=== PATIENT | female | born 1940 | race Hispanic/Latino ===

== ENCOUNTER 2017-01-08 17:06 | Inpatient (IN) | payer MEDICARE, MEDICAID ==
[~2017-01-08] VITALS: Ht 162.6 cm; Wt 105.0 kg
[~2017-01-08 17:06] MED LIST: ACCOLATE20 MG PO; ACTOS15 MG PO; ADVIL200 MG OR; ALBUTEROL SUL0.083 % IN; ALLEGRA180 MG PO; AMITIZA8 MCG PO; AMLODIPINE BESYL5 MG PO; AMLODIPINE5 MG PO; BAYER LOW81 MG OR; CARVEDILOL25 MG PO; CARVEDILOL3.125 MG PO; CARVEDILOL6.25 MG PO; CITRACAL + D3 MAXIMU PO; CLARITHROMYC500 M2 PO; CLARITIN10 MG OR; CLOBETASOL0.053 EX; CLONAZEP ODT0.5 MG PO; CLONAZEPAM0.5 MG PO; CLOPIDOGREL75 MG PO; COLACE100 MG PO; COUMADIN2.5 MG PO; COUMADIN5 MG PO; DOCUSATE CAL240 MG PO; FLEXERIL PO; FLUOXETINE20 MG PO; FUROSEMIDE40 MG PO; GABAPENTIN300 MG PO; GLIMEPIRIDE1 MG PO; GLIMEPIRIDE2 MG PO; GLIPIZIDE5 MG PO; GLUCOVANCE5 MG/500 M OR; IMDUR30 MG OR; ISOSORB MONO30 MG PO; K-DUR/KLOR-CON20 MEQ PO; KEPPRA500 M2 PO; KLONOPIN0.5 MG PO; LASIX 40 MG TAB40 MG PO; LASIX 40 MG40 MG/TAB PO; LEVEMIR1000 UNITS SC; LEVETIRACETAM500 MG PO; LIPITOR20 MG PO; LIPITOR40 M1 PO; LISINOPRIL20 MG PO; LOPRESSOR25 MG PO; LOPRESSOR50 M1 PO; LORTAB 10-325 M1 TAB PO; LOSARTAN POT50 MG PO; LOSARTAN POTASS50 MG PO; METFORMIN500 MG PO; METOCLOPRAM10 MG PO; METOPROLOL25 M1 OR; METRONIDAZOL500 MG PO; MUCINEX MAXIM1200 MG PO; MUCINEX1200 MG PO; MUCINEX600 MG PO; NEURONTIN100 MG PO; NITRO-DUR0.4 MG/HR TD; NITROSTAT0.4 MG SL; NORVASC2.5 MG PO; NOVOLIN 70/30 SC; OMEPRAZOLE10 MG PO; PANTOPRAZOLE SO40 M1 PO; PLAVIX75 MG PO; POTASSIMIN75 MG PO; PRAVASTATIN10 MG PO; PREVACID30 M3 PO; PRILOSEC20 MG/CAP PO; PRINIVIL5 MG PO; PROTONIX40 M2 PO; PROVENTIL HFA IN; SERTRALINE25 MG PO; SINGULAIR PO; SPIRONOLACT25 MG PO; TAM75CAP OR; TAM75CAP PO; TRAMADOL HCL50 MG PO; TRICOR145 MG OR; TYLENOL # 31 TA1 PO; ULTRAM50 MG PO; VITAMIN B CO PO; VITAMIN C500 MG PO; WARFARIN SODIUM1 MG PO; WARFARIN2.5 MG PO; WARFARIN5 MG PO; WARFARIN7.5 MG PO; ZITHROMAX250 MG PO; ZOFRAN ODT4 MG PO; ZOLOFT25 MG PO; ZOVIRAX200 MG PO; ZPAK PO
--- NOTE | 2017-01-08 17:15 | NUR ---
PT TRANSPORTED TO ROOM 12 VIA W/C.
[2017-01-08 18:11] LABS: HEMATOCRIT 34.7 % (37.0-47.0); HEMOGLOBIN 11.7 g/dl (12.0-16.0); IMMATURE GRANULOCYTES 0.6 % (0.0-1.0); MEAN CELL VOLUME 86.1 fL CALC (80.0-100.0); MEAN CORPUSCULAR HGB CONC 33.7 g/L CALC (32.0-36.0); NEUT# 14.73 thou/uL (2.00-7.15); RED BLOOD COUNT 4.03 mill/uL (4.20-5.60); RED CELL DISTRI WIDTH 12.9 % (11.5-15.5)
[2017-01-08 18:31] LABS: PROTHROMBIN TIME 23.3 SECONDS (9.0-12.5)
[2017-01-08 18:33] LABS: ALBUMIN 4.2 g/dL (3.2-5.0); BILIRUBIN, TOTAL 0.7 mg/dL (0.0-1.4); CREATININE 1.1 mg/dL (0.5-1.0); POTASSIUM 5.2 mmol/l (3.5-5.1); TOTAL PROTEIN 8.4 g/dL (6.3-8.2)
--- NOTE | 2017-01-08 19:35 | NUR ---
PT NOW WITH IV ESTABLISHED, BLOOD DRAWN, SEEN BY EDP.
[2017-01-08] MEDS ORDERED: WARFARIN2.5 MG PO (20:04)
[2017-01-08] MEDS ORDERED: AMITIZA8 MCG PO (20:06)
[2017-01-08] MEDS ORDERED: PANTOPRAZOLE SO40 MG PO (20:08)
[2017-01-08 20:09] LABS: URINE BILIRUBIN - DIPSTICK NEGATIVE (NEGATIVE); URINE BLOOD DIPSTICK NEGATIVE (NEGATIVE); URINE CLARITY CLEAR; URINE COLOR YELLOW; URINE GLUCOSE - DIPSTICK NEGATIVE (NEGATIVE); URINE KETONE NEGATIVE (NEGATIVE); URINE LEUK ESTERASE TRACE (NEGATIVE); URINE NITRITE - DIPSTICK NEGATIVE (Negative); URINE PROTEIN - DIPSTICK NEGATIVE (NEG-TRACE); URINE UROBILINOGEN - DIPSTICK 0.2 E.U./dL (0.2)
[2017-01-08] MEDS ORDERED: MUCINEX600 MG PO (20:10)
[2017-01-08] MEDS ORDERED: METOCLOPRAM10 MG PO (20:13)
[2017-01-08] MEDS ORDERED: CYCLOBENZAPR5 MG PO (20:13)
--- NOTE | 2017-01-08 21:14 | NUR ---
REPORT CALLED TO SILVER ELIAS TAKEN TO FLOOR BY PAYTON.
--- NOTE | 2017-01-08 21:20 | NUR ---
PT FROM ER TO MEDSURGICAL FLOOR BED 268; ARRIVES ON STRETCHER ACCOMPANIED BY MICHELL CAIN; AND X2 DAUGHTERS; ABLE TO AMBULATE FROM STRETCHER TO STANDING SCALE THEN TO BED WITH ASSISTANCE X2; UNSTEADY GAIT NOTED; DAUGHTER STATES USES CANE OR WALKER AT HOME; C/O OF SOB; ADMINISTERED O2 VIA NC 2 LITERS; MEDIATED PER DR. MARX; DENIES PROVIDED A SNACK AND ATE 100%; EXPLAINED SAFETY MEASURES AND PLAN OF CARE TO PT AND FAMILY MEMBERS; CIPAP AT BEDSIDE FOR PT TO USE AT NIGHT; FALL AND STANDARD PRECAUTIONS ARE IN PLACE WELL TELE MONITORING AND TEDHOSE; VSS; PT IS AFEBRILE 97.0 TEMP TYMPANIC AT THIS TIME; SOME REDNESS NOTED AND SWELLING ON LEFT ELBOW, STATES "IT STARTED A WEEK AGO AND IT HAS NOT GOTTEN WORSE." DAUGHTERS PROVIDED PT PMH AND SIGNED PT BELONGINGS FORM; CALL FERNANDEZ WITHIN REACH, WILL CONTINUE TO MONITOR.
[2017-01-08 22:00] VITALS: BP 123/59
--- NOTE | 2017-01-08 22:00 | NUR ---
ONE OF THE PT'S DAUGHTER LEAVING AND ONE IS STAYING ALL NIGHT; PROVIDED PILLOW AND A BLANKET, REFUSED A COT; ASSISTED PT TO BEDSIDE COMODE WITH ASSISTANCE BY DAUGHTER, VOIDED 200ML OF CLEAR YELLOW URINE; PT TOLERATED ACTIVITY WELL BUT NOTICED SOME SOB; INSTRUCTED ON BREATHING TECHNIQUES; PT STATES FEELS BETTER AFTER BREATHING EXERCISES. WILL CONTINUE TO MONITOR. CALL FERNANDEZ WITHIN REACH.
[2017-01-08 23:36] VITALS: BP 136/70
--- NOTE | 2017-01-09 00:02 | NUR ---
PT APPEARS TO BE SLEEPIN WITH EYES CLOSED; DENIES ANY NEEDS; RESP ARE UNLABORED; AFEBRILE; VSS; NO DISTRESS NOTED; DAUGHTER AT BEDSIDE; WILL CONTINUE TO MONITOR. CALL FERNANDEZ WITHIN REACH.
--- NOTE | 2017-01-09 01:21 | NUR ---
PT CONTINUE ON OWN CIPAP; DAUGHTER AT BEDSIDE; RESP ARE UNLABORED; CALL FERNANDEZ WITHIN REACH, WILL CONTINUE TO MONITOR.
--- NOTE | 2017-01-09 02:24 | NUR ---
PT RESPONDS TO VERBAL STIMULI; RESP ARE EVEN AND UNLABORED; WEARING CIPAP; DAUGHTER AT BEDSIDE; DENIES ANY PAIN OR NEEDS AT THIS TIME; WILL CONTINUE TO MONITOR; CALL FERNANDEZ WITHIN REACH.
--- NOTE | 2017-01-09 03:27 | NUR ---
ASSSITED PT TO BSC WITH ASSISTANCE FROM THE [facility], PT TOLERATED ACTIVITY WELL; VOIDED 200 ML OF CLEAR YELLOW URINE; DAUGHTER CONTINUE AT BEDSIDE; PT VOICES NO COMPLAINS OF NEEDS AT THIS TIME; RESP ARE UNLABORED; CALL FERNANDEZ WITHIN REACH; WILL CONTINUE TO MONITOR.
[2017-01-09 03:45] VITALS: BP 140/70
--- NOTE | 2017-01-09 05:00 | NUR ---
LAB TECHN IN PT ROOM DRAWING BLOOD SAMPLES; PT OFFERS NO COMPLAINS; DENIES NEEDS; NORMAL SALINE CONTINUE INFUSING AT 100 ML/HR WITHOUT DIFFICULTY; IV SITE IS FREE OF REDNESS/EDEMA; DAUGHTER REMAINS AT BEDSIDE; CALL FERNANDEZ WITHIN REACH.
--- NOTE | 2017-01-09 06:03 | NUR ---
ASSISTED PT OOB TO BSC; VOIDED 300 ML OF CLEAR YELLOW URINE; ASSISTED BACK TO BED; PT CONTINUE WEARING CIPAP; DAUGHTER IS BEDSIDE; RESP ARE UNLABORED; OFFERES NO NEW COMPLAINS; WILL CONTINUE TO MONITOR. CALL FERNANDEZ WITHIN REACH.
[2017-01-09 06:16] LABS: HEMATOCRIT 30.9 % (37.0-47.0); HEMOGLOBIN 10.4 g/dl (12.0-16.0); MEAN CELL VOLUME 86.8 fL CALC (80.0-100.0); MEAN CORPUSCULAR HGB 29.2 pG CALC (26.0-32.0); MEAN CORPUSCULAR HGB CONC 33.7 g/L CALC (32.0-36.0); RED BLOOD COUNT 3.56 mill/uL (4.20-5.60); RED CELL DISTRI WIDTH 12.9 % (11.5-15.5)
[2017-01-09 06:33] LABS: INTERNATIONAL NORMALIZED RATIO 1.9 RATIO (0.7-1.3); PROTHROMBIN TIME 21.1 SECONDS (9.0-12.5)
[2017-01-09 06:38] LABS: ANION GAP 14 (6-22 (CALC)); BUN 26 mg/dL (8-23); BUN/CREATININE RATIO 28 (12-20 (CALC)); CALCIUM 8.3 mg/dL (8.4-10.2); CARBON DIOXIDE 26 mmol/l (22-30); CHLORIDE 90 mmol/l (95-108); CREATININE 0.9 mg/dL (0.5-1.0); GFR > 60 ML/MIN (>=60 (CALC)); GFR FOR AFR.AMER. > 60 ML/MIN (>=60 (CALC)); GLUCOSE 174 mg/dL (82-115); MAGNESIUM 1.6 mg/dL (1.6-2.3); POTASSIUM 4.7 mmol/l (3.5-5.1); SODIUM 125 mmol/l (137-146)
--- NOTE | 2017-01-09 08:30 | NUR ---
S: ATUL PULIDO is a 76 F who presents with sepsis She has a history of diabetes, depression, CHF, PUD, CAD, and Afib. All medications in patient's chart were reviewed. O: VS: BP 155/74 mmHg, P 72 breaths/min, RR 28 breaths/min, T 101.1 F W 104kg, HT 64 in, Scr= 0.9, CrCl= 46.7 ml/min A: Blood culture <is pending/show> which is sensitive to <>. Urine culture <is pending/show> which is sensitive to <>. P: Patient is on ceftriaxone 2gm IV daily. Vancomycin ordered for pharmacy to dose. Start Vancomycin 1g IV Q12H. Vancomycin trough is drawn before the 4th dose on 01/10/17 @0945 Vancomycin goal trough is between 15-20 mcg/ml. Pharmacy will follow and or advise on antibiotics use as needed.
[2017-01-09 08:45] VITALS: BP 114/63
--- NOTE | 2017-01-09 08:45 | NUR ---
ASSESSMENT IS COMPLETED: FAMILY IN THE ROOM. IV SITE IS FREE FROM REDNESS OR EDEMA. LEFT ARM HAS BRUISING . TELE MONITOR IN PLACE. CONTINUE TO OSBERVE AND MONITOR.
--- NOTE | 2017-01-09 12:30 | NUR ---
PT IS RELAXING IN BED FAMILY IN THE ROOM. IV SITE IS FREE FROM REDNESS OR EDEMA.
[2017-01-09 16:20] VITALS: BP 121/70
--- NOTE | 2017-01-09 17:30 | NUR ---
NEW IV SITE IN PLACE THE OTHER ONE CAME OUT. IN RAC WITH NUMBER 20. AFTER TOTAL OF 4 ATTEMPTS. PT TOLERATED WELL CONTINUE TO OBSERVE AND MONITOR.
--- NOTE | 2017-01-09 19:00 | NUR ---
PATIENT RESTING IN BED. NO ACUTE DISTRESS NOTED. FAMILY VISITING WITH PT AT THIS TIME. REPORT RECEIVED FROM OFF GOING NURSE.
[2017-01-09 19:13] VITALS: BP 108/69
[2017-01-09 23:37] VITALS: BP 145/74
--- NOTE | 2017-01-10 00:26 | NUR ---
PT. RESTING IN BED WITH NO DISTRESS NOTED. REAPPLIED TELE LEAD TO LL. PT. DENIES NEEDS. FAMILY MEMBER REMAINS AT BEDSIDE. CALL LIGHT IS IN REACH.
[2017-01-10 03:43] VITALS: BP 133/80
[2017-01-10 05:37] LABS: HEMATOCRIT 31.6 % (37.0-47.0); HEMOGLOBIN 10.3 g/dl (12.0-16.0); IMMATURE GRANULOCYTES 0.5 % (0.0-1.0); MEAN CELL VOLUME 88.8 fL CALC (80.0-100.0); MEAN CORPUSCULAR HGB 28.9 pG CALC (26.0-32.0); MEAN CORPUSCULAR HGB CONC 32.6 g/L CALC (32.0-36.0); NEUT# 8.98 thou/uL (2.00-7.15); RED BLOOD COUNT 3.56 mill/uL (4.20-5.60)
[2017-01-10 05:52] LABS: INTERNATIONAL NORMALIZED RATIO 1.4 RATIO (0.7-1.3)
[2017-01-10 05:56] LABS: ANION GAP 12 (6-22 (CALC)); BUN 14 mg/dL (8-23); BUN/CREATININE RATIO 22 (12-20 (CALC)); CALCIUM 8.6 mg/dL (8.4-10.2); CARBON DIOXIDE 25 mmol/l (22-30); CHLORIDE 97 mmol/l (95-108); CREATININE 0.6 mg/dL (0.5-1.0); GFR > 60 ML/MIN (>=60 (CALC)); GFR FOR AFR.AMER. > 60 ML/MIN (>=60 (CALC)); GLUCOSE 167 mg/dL (82-115); POTASSIUM 4.8 mmol/l (3.5-5.1); SODIUM 129 mmol/l (137-146)
--- NOTE | 2017-01-10 07:00 | NUR ---
RECEIVED BEDSIDE REPORT FROM TIESHA GALARZA. PT RESTING IN SUPINE POSITION WITH CPAP IN PLACE, TELE MONITOR IN PLACE. FAMILY AT BEDSIDE. DENIES PAIN OR DISCOMFORT. #20 RAC INFUSING WITHOUT DIFFICULTY, SITE APPEARS HEALTHY. PLAN OF CARE DISCUSSED. SAFETY PRECAUTIONS REINFORCED. BED IN LOWEST POSITION WITH WHEELS LOCKED. CALL LIGHT WITHIN REACH. WILL CONTINUE TO MONITOR.
[2017-01-10 07:32] VITALS: BP 127/66
--- NOTE | 2017-01-10 08:55 | NUR ---
DR ASHLEY Morrison TO SEE PT WITH AIRFIELD MANAGER, NEW ORDERS RECEIVED.
--- NOTE | 2017-01-10 11:56 | NUR ---
PHARMACY CONSULTED TO DOSE WARFARIN. PT INR=1.4. WILL RESUME PT'S HOME DOSE OF 5 MG DAILY EXCEPT 2.5 MG ON SATURDAY. WILL MONITOR INR DAILY.
[2017-01-10 13:00] VITALS: BP 149/82
--- NOTE | 2017-01-10 13:21 | NUR ---
RESTING IN SUPINE POSITION, FAMILY AT BEDSIDE. RESPS EVEN AND UNLABORED ON O2 VIA NC, TELE MONITOR INPLACE. LEFT ARM ELEVATED ON PILLOW, ICE PACK TO LEFT ELBOW. #20 RAC INFUISNG WITHOUT DIFFICULTY, SITE APPEARS HEALTHY. CALL LIGHT WITHIN REACH. WILL CONTINUE TO MONITOR.
--- NOTE | 2017-01-10 13:44 | NUR ---
s: SYEDATUL ZEPEDA is a 76 F who presents with SEPSIS. O: TROUGH ON 01/10/17 @1000 = 9 A: Blood culture is pending Wound culture is pending P: Patient is on Rocephin 2 gm IV daily and Vancomycin 1 gm IV Q12H Vancomycin ordered for pharmacy to dose. Pt currently not at trough goal of 15-20 mcg/ml Change Vancomycin to 1g IV Q8H. Vancomycin trough is drawn 30 min before 4th dose on 01/11/17 @1030. Pharmacy will follow and or advise on antibiotics use as needed.
[2017-01-10 16:00] VITALS: BP 144/86
--- NOTE | 2017-01-10 16:36 | NUR ---
RESTING IN SUPINE POSITON. LEFT ARM ON PILLOW WITH ICE PACK APPLIED. RESPS EVEN AND UNLABORED ON O2 VIA NC, TELE MONITOR IN PLACE. NO APPARENT DISTRESS NOTED. VISITORS AT BEDSIDE. CALL LIGHT WITHIN REACH. WILL CONTINUE TO MONITOR.
[2017-01-10 19:10] VITALS: BP 134/66
--- NOTE | 2017-01-10 19:10 | NUR ---
PT. RESTING IN BED IN SEMI FOWLERS POSITION WITH O2 INFUSING PER NC ORDERED. ASSESSMENT COMPLETED. IV SITE PATENT TO RAC AND INFUSING ORDERED NS @40ML/HR, SCHEDULED VANCO HUNG PER ORDER. LEFT ARM SLIGHLY REDDENED AND WARM TO TOUCH, ICE PACK IN PLACE FOR COMFORT. FAMILY IN AT BEDSIDE AND DENIES NEEDS AT THIS TIME. INSTRCUTED TO CALL FOR ANY NEEDS. CALL LIGHT IS IN REACH. WILL CONTINUE TO MONITOR.
--- NOTE | 2017-01-10 21:45 | NUR ---
PT. RESTING IN BED WITH EYES CLOSED, NO DISTRESS NOTED. RESP EVEN AND UNLABORED. CPAP IN PLACE. CALL LIGHT IS IN REACH. FAMILY MEMBER SLEEPING AT BEDSIDE.
[2017-01-10 23:35] VITALS: BP 109/61
--- NOTE | 2017-01-10 23:53 | NUR ---
PT. RESTING IN BED ON LEFT SIDE WITH EYES CLOSED, NO DISTRESS NOTED. FAMILY MEMBER REMAINS AT BEDSIDE. CALL LIGHT IS IN REACH.
[2017-01-11 03:08] VITALS: BP 143/72
--- NOTE | 2017-01-11 03:08 | NUR ---
PT. RESTING IN BED WITH EYES CLOSED, AWAKENED FOR VS; VSS; SCHED MED HUNG. PT AND FAMILY MEMBER DENIES NEEDS. CALL LIGHT IS IN REACH. WILL CONTINUE TO MONITOR.
[2017-01-11 05:17] LABS: HEMOGLOBIN 9.9 g/dl (12.0-16.0); IMMATURE GRANULOCYTES 0.6 % (0.0-1.0); MEAN CELL VOLUME 89.9 fL CALC (80.0-100.0); MEAN CORPUSCULAR HGB 28.7 pG CALC (26.0-32.0); MEAN CORPUSCULAR HGB CONC 31.9 g/L CALC (32.0-36.0); NEUT# 9.73 thou/uL (2.00-7.15); RED BLOOD COUNT 3.45 mill/uL (4.20-5.60); RED CELL DISTRI WIDTH 13.2 % (11.5-15.5)
[2017-01-11 05:43] LABS: INTERNATIONAL NORMALIZED RATIO 1.5 RATIO (0.7-1.3); PROTHROMBIN TIME 17.4 SECONDS (9.0-12.5)
[2017-01-11 05:45] LABS: ANION GAP 13 (6-22 (CALC)); BUN 17 mg/dL (8-23); BUN/CREATININE RATIO 24 (12-20 (CALC)); CALCIUM 8.4 mg/dL (8.4-10.2); CARBON DIOXIDE 23 mmol/l (22-30); CHLORIDE 99 mmol/l (95-108); CREATININE 0.7 mg/dL (0.5-1.0); GFR > 60 ML/MIN (>=60 (CALC)); GFR FOR AFR.AMER. > 60 ML/MIN (>=60 (CALC)); GLUCOSE 235 mg/dL (82-115); POTASSIUM 4.9 mmol/l (3.5-5.1); SODIUM 130 mmol/l (137-146)
--- NOTE | 2017-01-11 07:00 | NUR ---
RECEIVED BEDSIDE REPORT FROM DOA GALARZA. PT RESTING IN SUPINE POSITION WITH CPAP IN PLACE. FAMILY AT BEDSIDE. DENIES PAIN OR DISCOMFORT. #22 RW INFUSING WITHOUT DIFFICULTY, SITE APPEARS HEALTHY. PLAN OF CARE DISCUSSED. SAFETY PRECAUTIONS REINFORCED. BED IN LOWEST POSITION WITH WHEELS LOCKED. CALL LIGHT WITHIN REACH. WILL CONTINUE TO MONITOR.
[2017-01-11 08:45] VITALS: BP 146/73
--- NOTE | 2017-01-11 09:20 | NUR ---
DR RAMIREZ IN TO SEE PT, NEW ORDERS RECEIVED.
--- NOTE | 2017-01-11 13:13 | NUR ---
TO RADIOLOGY IN STABLE CONDITION VIA WHEELCHAIR ACCOMPANIED BY VOLUNTEER.
--- NOTE | 2017-01-11 13:44 | NUR ---
FROM RADIOLOGY VIA WHEELCHAIR ACCOMPANIED BY VOLUNTEER.
--- NOTE | 2017-01-11 14:04 | NUR ---
S: EDWIN LISBET YOOFINA is a 76 F who presents with sepsis O: Trough level 01/11/17 @1100 = 16 A: Wound culture showed no growth Blood culture is pending P: Patient is on ceftriaxone 2gm IV daily and Vancomycin 1gm IV q8h Vancomycin ordered for pharmacy to dose. pt is currently at trough goal between 15-20 mcg/ml Continue Vancomycin 1gm IV Q8H. Vancomycin trough is drawn before the 4th dose on 01/12/17 @1330 Pharmacy will follow and or advise on antibiotics use as needed.
--- NOTE | 2017-01-11 14:55 | NUR ---
RESTING IN SUPINE POSITION, RESPS EVEN AND UNLABORED ON O2 VIA NC, TELE MONITOR IN PLACE. #22 RAC INFUSING WITHOUT DIFFICULTY, SITE APPEARS HEALTHY. FAMILY AT BEDSIDE. ALL NEEDS MET. CALL LIGHT WITHIN REACH. WILL CONTINUE TO MONITOR.
[2017-01-11 16:00] VITALS: BP 119/64
--- NOTE | 2017-01-11 16:13 | NUR ---
MEDICATED WITH TYLENOL PO FOR LEFT ARM DISCOMFORT. PO FLUIDS OFFERED. FAMILY AT BEDSIDE. CALL LIGHT WITHIN REACH. WILL CONTINUE TO MONITOR.
[2017-01-11 19:27] VITALS: BP 116/61
--- NOTE | 2017-01-11 19:45 | NUR ---
REPORT RECEIVED FROM DAY NURSE; PT.APPEARS COMFORTABLE AT THIS TIME, NO S/S OF DISTRESS AT THIS TIME; ICE PROVIDED FOR ICE PACK FOR ARM TO BE ELEVATED ON; FAMILY AT BEDSIDE
--- NOTE | 2017-01-11 21:30 | NUR ---
PT.MEDICATED ORDERS PROVIDE, DAUGHTER AT INTERPRETED; PT.C/O SOME PAIN IN HER LEFT ARM, PROVIDED COMFORT MEASURES W/ICEPACK AND ELEVATION; PT.DENIES ANY FURTHER NEEDS AT THIS TIME; CALL LIGHT W/IN REACH
[2017-01-11 23:30] VITALS: BP 124/72
--- NOTE | 2017-01-12 00:30 | NUR ---
DAUGHTER STATED THAT PT.HAS MENTIONED HER THROAT BOTHERING HER SOME WHEN SHE SWOLLOWS, I SUGGESTED SHE PROP UP SOMEWHAT IN BED, PT.HAD CPAP ON AND WAS LAYING FLAT IN THE BED; I ASSISTED HER TO ELEVATE IN AN ATTEMPT TO HELP HER BREATHING; ADVISED HER TO CALL IF SHE HAS FURTHER COMPLAINTS OR DIFFICULTIES
--- NOTE | 2017-01-12 03:00 | NUR ---
PT.SLEEPING AT THIS TIME; NO S/S OF DISTRESS, CPAP MACHINE ON PT., DAUGHTER AT BS SLEEPING; CALL LIGHT AND BST W/IN REACH
[2017-01-12 04:14] VITALS: BP 136/71
[2017-01-12 06:21] LABS: HEMATOCRIT 29.6 % (37.0-47.0); HEMOGLOBIN 9.6 g/dl (12.0-16.0); IMMATURE GRANULOCYTES 0.2 % (0.0-1.0); MEAN CELL VOLUME 89.7 fL CALC (80.0-100.0); MEAN CORPUSCULAR HGB 29.1 pG CALC (26.0-32.0); MEAN CORPUSCULAR HGB CONC 32.4 g/L CALC (32.0-36.0); NEUT# 6.64 thou/uL (2.00-7.15); RED BLOOD COUNT 3.3 mill/uL (4.20-5.60); RED CELL DISTRI WIDTH 13.2 % (11.5-15.5)
[2017-01-12 06:35] LABS: ANION GAP 14 (6-22 (CALC)); BUN 18 mg/dL (8-23); BUN/CREATININE RATIO 25 (12-20 (CALC)); CALCIUM 8.6 mg/dL (8.4-10.2); CARBON DIOXIDE 28 mmol/l (22-30); CHLORIDE 97 mmol/l (95-108); CREATININE 0.7 mg/dL (0.5-1.0); GFR > 60 ML/MIN (>=60 (CALC)); GFR FOR AFR.AMER. > 60 ML/MIN (>=60 (CALC)); GLUCOSE 202 mg/dL (82-115); POTASSIUM 4.4 mmol/l (3.5-5.1); SODIUM 134 mmol/l (137-146)
[2017-01-12 06:36] LABS: INTERNATIONAL NORMALIZED RATIO 1.8 RATIO (0.7-1.3); PROTHROMBIN TIME 20.7 SECONDS (9.0-12.5)
--- NOTE | 2017-01-12 07:00 | NUR ---
SHIFT CHANGE REPORT FROM ANGIE, PT AWAKE ALERT AND ORIENTED SITTING UP IN CHAIR, L. ARM SWOLEN AT THIS TIME AND NURSE ELEVATED ON PILLOWS AND ADVISED PT TO KEEP ELEVATED, DENIES PAIN,IVF INFUSING, CALL FERNANDEZ IN REACH AND DAUGHTER AT BEDSIDE.
[2017-01-12 08:57] VITALS: BP 114/65
[2017-01-12 11:00] VITALS: BP 127/82
[2017-01-12] MEDS ORDERED: DOXYCYCL HYC100 MG PO (12:08)
[2017-01-12] MEDS ORDERED: KEFLEX500 M1 PO (12:08)
--- NOTE | 2017-01-12 15:08 | NUR ---
Discharge instructions given. Patient verbalizes understanding of same. Discharged in stable condition via Wheelchair to Home with family. All belongings sent with pt.
== END 2017-01-12 14:55 | DRG 603 ==
LOC: ENPENDDIS → ED 17:06 → ED-I 19:46 → ED 20:04 → MS2 20:05
PROVIDERS: Emergency Medicine; Internal Medicine; ADMIT Internal Medicine; ATTEND Internal Medicine
DX: L02.414 Cutaneous abscess of left upper limb (principal); E87.5 Hyperkalemia; E11.9 Type 2 diabetes mellitus without complications; I11.0 Hypertensive heart disease with heart failure; I50.9 Heart failure, unspecified; I48.91 Unspecified atrial fibrillation; G40.909 Epilepsy, unspecified, not intractable, without status epilepticus; E87.1 Hypo-osmolality and hyponatremia; E78.5 Hyperlipidemia, unspecified; F32.9 Major depressive disorder, single episode, unspecified; L03.114 Cellulitis of left upper limb; I25.10 Atherosclerotic heart disease of native coronary artery without angina pectoris; G47.33 Obstructive sleep apnea (adult) (pediatric); F41.9 Anxiety disorder, unspecified; T50.2X5A Adverse effect of carbonic-anhydrase inhibitors, benzothiadiazides and other diuretics, initial encounter; Z95.0 Presence of cardiac pacemaker; Z79.01 Long term (current) use of anticoagulants; Z95.1 Presence of aortocoronary bypass graft
CPT/HCPCS: J1956

== ENCOUNTER 2017-03-06 16:47 | Inpatient (IN) | payer MEDICARE, MEDICAID ==
[~2017-03-06] VITALS: Ht 162.6 cm; Wt 105.0 kg
[~2017-03-06 16:47] MED LIST changes: +CYCLOBENZAPR5 MG PO; +DOXYCYCL HYC100 MG PO; +KEFLEX500 M1 PO; +PANTOPRAZOLE SO40 MG PO
[2017-03-06 17:19] LABS: HEMATOCRIT 40.3 % (37.0-47.0); HEMOGLOBIN 12.6 g/dl (12.0-16.0); IMMATURE GRANULOCYTES 0.5 % (0.0-1.0); MEAN CORPUSCULAR HGB 29.7 pG CALC (26.0-32.0); MEAN CORPUSCULAR HGB CONC 31.3 g/L CALC (32.0-36.0); NEUT# 9.78 thou/uL (2.00-7.15); RED BLOOD COUNT 4.24 mill/uL (4.20-5.60); RED CELL DISTRI WIDTH 13.2 % (11.5-15.5)
[2017-03-06 17:35] LABS: INTERNATIONAL NORMALIZED RATIO 1.9 RATIO (0.7-1.3); PROTHROMBIN TIME 22.1 SECONDS (9.0-12.5)
[2017-03-06 17:37] LABS: ALBUMIN 4.2 g/dL (3.2-5.0); ALKALINE PHOSPHATASE 102 u/l (38-126); ANION GAP 12 (6-22 (CALC)); BILIRUBIN, TOTAL 0.7 mg/dL (0.0-1.4); BUN 16 mg/dL (8-23); BUN/CREATININE RATIO 24 (12-20 (CALC)); CALCIUM 9.2 mg/dL (8.4-10.2); CARBON DIOXIDE 35 mmol/l (22-30); CHLORIDE 96 mmol/l (95-108); CREATININE 0.7 mg/dL (0.5-1.0); GFR > 60 ML/MIN (>=60 (CALC)); GFR FOR AFR.AMER. > 60 ML/MIN (>=60 (CALC)); GLUCOSE 103 mg/dL (82-115); POTASSIUM 3.8 mmol/l (3.5-5.1); SGOT/AST 54 u/l (9-36); SGPT/ALT 47 u/l (11-66); SODIUM 140 mmol/l (137-146); TOTAL PROTEIN 8.5 g/dL (6.3-8.2)
[2017-03-06 17:49] LABS: MYOGLOBIN 39 ng/mL (0 - 62)
[2017-03-06 21:20] VITALS: BP 129/61
[2017-03-06] MEDS ORDERED: CETIRIZINE10 MG PO (21:20)
[2017-03-06] MEDS ORDERED: LOSARTAN POT50 MG PO (21:24)
[2017-03-06] MEDS ORDERED: LOSARTAN POTASS25 MG PO (21:24)
[2017-03-06] MEDS ORDERED: ACCOLATE20 MG PO (21:26)
[2017-03-06] MEDS ORDERED: PRAVASTATIN10 MG PO (21:28)
[2017-03-06] MEDS ORDERED: TYLENOL 500MG TAB PO (21:33)
[2017-03-07 03:08] VITALS: BP 138/60
[2017-03-07 06:23] LABS: HEMOGLOBIN 11.9 g/dl (12.0-16.0); MEAN CELL VOLUME 94.3 fL CALC (80.0-100.0); MEAN CORPUSCULAR HGB 29.5 pG CALC (26.0-32.0); MEAN CORPUSCULAR HGB CONC 31.3 g/L CALC (32.0-36.0); RED BLOOD COUNT 4.03 mill/uL (4.20-5.60); RED CELL DISTRI WIDTH 13.2 % (11.5-15.5)
[2017-03-07 06:49] LABS: ANION GAP 18 (6-22 (CALC)); BUN 13 mg/dL (8-23); BUN/CREATININE RATIO 22 (12-20 (CALC)); CALCIUM 9.2 mg/dL (8.4-10.2); CARBON DIOXIDE 30 mmol/l (22-30); CHLORIDE 96 mmol/l (95-108); CREATININE 0.6 mg/dL (0.5-1.0); GFR > 60 ML/MIN (>=60 (CALC)); GFR FOR AFR.AMER. > 60 ML/MIN (>=60 (CALC)); GLUCOSE 206 mg/dL (82-115); MAGNESIUM 1.8 mg/dL (1.6-2.3); POTASSIUM 4.4 mmol/l (3.5-5.1); SODIUM 139 mmol/l (137-146)
[2017-03-07 08:04] VITALS: BP 135/52
[2017-03-07 10:34] LABS: INTERNATIONAL NORMALIZED RATIO 1.7 RATIO (0.7-1.3); PROTHROMBIN TIME 19.5 SECONDS (9.0-12.5)
[2017-03-07 11:38] LABS: URINE BILIRUBIN - DIPSTICK NEGATIVE (NEGATIVE); URINE BLOOD DIPSTICK TRACE-INTACT (NEGATIVE); URINE CLARITY CLEAR; URINE COLOR YELLOW; URINE GLUCOSE - DIPSTICK >=1000 mg/dL (NEGATIVE); URINE KETONE NEGATIVE (NEGATIVE); URINE LEUK ESTERASE NEGATIVE (NEGATIVE); URINE NITRITE - DIPSTICK NEGATIVE (Negative); URINE PH 5.5 (4.5-8.0); URINE PROTEIN - DIPSTICK NEGATIVE (NEG-TRACE); URINE SPECIFIC GRAVITY 1.015; URINE UROBILINOGEN - DIPSTICK 0.2 E.U./dL (0.2)
[2017-03-07 17:15] VITALS: BP 128/66
[2017-03-07 19:00] VITALS: BP 147/50
[2017-03-08 04:10] VITALS: BP 143/79
[2017-03-08 08:15] VITALS: BP 128/51
[2017-03-08 09:37] LABS: INTERNATIONAL NORMALIZED RATIO 1.7 RATIO (0.7-1.3); PROTHROMBIN TIME 19.5 SECONDS (9.0-12.5)
[2017-03-08] MEDS ORDERED: ZITHROMAX500 MG PO (10:54)
== END 2017-03-08 13:04 | disposition home health service (06) | DRG 637 ==
LOC: ENPENDDIS → ED 16:47 → ED-I 19:44 → ED 19:56 → MS2 19:57
PROVIDERS: Emergency Medicine; ADMIT Internal Medicine; ATTEND Internal Medicine
DX: E11.649 Type 2 diabetes mellitus with hypoglycemia without coma (principal); J96.21 Acute and chronic respiratory failure with hypoxia; I48.91 Unspecified atrial fibrillation; G40.909 Epilepsy, unspecified, not intractable, without status epilepticus; I11.0 Hypertensive heart disease with heart failure; I50.9 Heart failure, unspecified; J44.1 Chronic obstructive pulmonary disease with (acute) exacerbation; E78.5 Hyperlipidemia, unspecified; F32.9 Major depressive disorder, single episode, unspecified; G47.33 Obstructive sleep apnea (adult) (pediatric); J96.22 Acute and chronic respiratory failure with hypercapnia; I25.10 Atherosclerotic heart disease of native coronary artery without angina pectoris; Z95.0 Presence of cardiac pacemaker; Z95.1 Presence of aortocoronary bypass graft; Z79.01 Long term (current) use of anticoagulants; Z79.4 Long term (current) use of insulin
CPT/HCPCS: G0378

== ENCOUNTER 2017-05-11 16:02 | Inpatient (IN) | payer MEDICARE, MEDICAID ==
[~2017-05-11] VITALS: Ht 162.6 cm; Wt 91.0 kg
[~2017-05-11 16:02] MED LIST changes: +CETIRIZINE10 MG PO; +LEVEMIR FL100 UNIT/M SC; +LOSARTAN POTASS25 MG PO; +TYLENOL 500MG TAB PO; +ZITHROMAX500 MG PO
--- NOTE | 2017-05-11 16:04 | NUR ---
TO ROOM 6 [facility] W/C. DAUGHTERS (2 OF HER CAREGIVERS) AT SIDE
[2017-05-11] MEDS ORDERED: LOSARTAN POT50 MG PO (16:34)
[2017-05-11 16:39] LABS: HEMATOCRIT 37.6 % (37.0-47.0); HEMOGLOBIN 11.6 g/dl (12.0-16.0); IMMATURE GRANULOCYTES 0.3 % (0.0-1.0); MEAN CELL VOLUME 91.3 fL CALC (80.0-100.0); MEAN CORPUSCULAR HGB 28.2 pG CALC (26.0-32.0); MEAN CORPUSCULAR HGB CONC 30.9 g/L CALC (32.0-36.0); NEUT# 4.95 thou/uL (2.00-7.15); RED BLOOD COUNT 4.12 mill/uL (4.20-5.60); RED CELL DISTRI WIDTH 13.5 % (11.5-15.5)
[2017-05-11] MEDS ORDERED: PROTONIX40 MG PO (16:39)
[2017-05-11 16:47] LABS: INTERNATIONAL NORMALIZED RATIO 1.9 RATIO (0.7-1.3); PROTHROMBIN TIME 21.3 SECONDS (9.0-12.5)
[2017-05-11 16:52] LABS: ALBUMIN 4.1 g/dL (3.2-5.0); ALKALINE PHOSPHATASE 93 u/l (38-126); BILIRUBIN, TOTAL 1.2 mg/dL (0.0-1.4); BUN 16 mg/dL (8-23); BUN/CREATININE RATIO 23 (12-20 (CALC)); CARBON DIOXIDE 29 mmol/l (22-30); CHLORIDE 98 mmol/l (95-108); CREATININE 0.7 mg/dL (0.5-1.0); GFR > 60 ML/MIN (>=60 (CALC)); GFR FOR AFR.AMER. > 60 ML/MIN (>=60 (CALC)); GLUCOSE 215 mg/dL (82-115); SGOT/AST 52 u/l (9-36); SGPT/ALT 22 u/l (11-66); SODIUM 135 mmol/l (137-146); TOTAL PROTEIN 7.5 g/dL (6.3-8.2)
[2017-05-11 16:53] LABS: ANION GAP 13 (6-22 (CALC)); POTASSIUM 5.3 mmol/l (3.5-5.1)
[2017-05-11 17:12] LABS: MYOGLOBIN 29 ng/mL (0 - 62)
--- NOTE | 2017-05-11 17:16 | NUR ---
SBAR PRINTED TO FLOOR
--- NOTE | 2017-05-11 18:35 | NUR ---
ATTEMPT TO CALL REPORT TO NURSE UNAVAILABLE AT THIS TIME.
--- NOTE | 2017-05-11 18:57 | NUR ---
PT TO MEDSURG VIA STRETCHER ON TELEMETRY. NO APPARENT DISTRESS. O2 2L/M VIA NC. IV SITE HEALTHY. FAMILY ACCOMPANIED.
--- NOTE | 2017-05-11 19:00 | NUR ---
RECEIVED FROM ER VIA STRETCHER ACCOMPANIED BY ER STAFF, AMBULATING TO BED WITH STANDBY ASSISTANCE, STEADY GAIT. A/O X3, BULGARIAN SPEAKING. FAMILY AT BED SIDE. O2 @2L IN PLACE VIA NC. ORIENTED TO USE CALL LIGHT FOR ASSISTNACE. 1800ADA JAYCE DIET PROVIDED FOR DINNER. WILL CONTINUE TO MONITOR.
[2017-05-11 19:30] LABS: URINE BILIRUBIN - DIPSTICK NEGATIVE (NEGATIVE); URINE BLOOD DIPSTICK NEGATIVE (NEGATIVE); URINE CLARITY CLEAR; URINE COLOR YELLOW; URINE GLUCOSE - DIPSTICK NEGATIVE (NEGATIVE); URINE KETONE NEGATIVE (NEGATIVE); URINE NITRITE - DIPSTICK NEGATIVE (Negative); URINE PH 5.5 (4.5-8.0); URINE PROTEIN - DIPSTICK NEGATIVE (NEG-TRACE); URINE SPECIFIC GRAVITY <=1.005; URINE UROBILINOGEN - DIPSTICK 0.2 E.U./dL (0.2)
[2017-05-11 19:31] LABS: URINE LEUK ESTERASE SMALL (NEGATIVE)
[2017-05-11 19:43] LABS: URINE SQUAMOUS EPITHELIAL CELL FEW EPI/hpf (0-FEW)
[2017-05-11 19:57] VITALS: BP 133/78
[2017-05-12 00:24] VITALS: BP 122/67
--- NOTE | 2017-05-12 00:26 | NUR ---
RESTING IN BED ON RIGHT SIDE WITH EYES CLOSED, RESPIRATIONS EVEN AND UNLABORED ON O2@2L VIA NC. FAMILY MEMBER AT BED SIDE.
[2017-05-12 04:23] VITALS: BP 155/81
--- NOTE | 2017-05-12 04:36 | NUR ---
RESTING IN SEMIFOWLERS WITH EYES CLOSED, RESPIRATIONS EVEN AND UNLABORED, DAUGHTER AT BED SIDE. CALL LIGHT IN REACH.
[2017-05-12 07:48] LABS: HEMATOCRIT 38.1 % (37.0-47.0); HEMOGLOBIN 11.7 g/dl (12.0-16.0); IMMATURE GRANULOCYTES 0.4 % (0.0-1.0); MEAN CELL VOLUME 91.1 fL CALC (80.0-100.0); MEAN CORPUSCULAR HGB CONC 30.7 g/L CALC (32.0-36.0); NEUT# 6.43 thou/uL (2.00-7.15); RED BLOOD COUNT 4.18 mill/uL (4.20-5.60); RED CELL DISTRI WIDTH 13.5 % (11.5-15.5)
[2017-05-12 07:50] VITALS: BP 166/83
--- NOTE | 2017-05-12 08:00 | NUR ---
REPORT RECEIVED FROM NIGHT NURSE, FAMILY AT BS; PT.MEDICATED W/AM MEDICATIONS AND V/S ASSESSED. IV SITE WAS BLOODY, BUT DRIED W/OLD BLOOD, PT.C/O; I CLEANED IV SITE UP AND REDRESSED, SITE FLUSHED WELL AND APPEARS HEALTHY AT THIS TIME
[2017-05-12 08:01] LABS: ANION GAP 15 (6-22 (CALC)); BUN 15 mg/dL (8-23); BUN/CREATININE RATIO 24 (12-20 (CALC)); CALCIUM 9.3 mg/dL (8.4-10.2); CARBON DIOXIDE 29 mmol/l (22-30); CHLORIDE 100 mmol/l (95-108); CREATININE 0.6 mg/dL (0.5-1.0); GFR > 60 ML/MIN (>=60 (CALC)); GFR FOR AFR.AMER. > 60 ML/MIN (>=60 (CALC)); GLUCOSE 271 mg/dL (82-115); POTASSIUM 4.2 mmol/l (3.5-5.1); SODIUM 141 mmol/l (137-146)
[2017-05-12 08:30] LABS: INTERNATIONAL NORMALIZED RATIO 1.6 RATIO (0.7-1.3); PROTHROMBIN TIME 17.5 SECONDS (9.0-12.5)
--- NOTE | 2017-05-12 11:10 | NUR ---
PT.MEDICATED W/NOVOLOG FOR BS OF 309; PT.ON SIDE IN BED W/FAMILY VISITING AT BS, DENIES ANY OTHER NEEDS AT THIS TIME
[2017-05-12 12:40] VITALS: BP 150/81
--- NOTE | 2017-05-12 14:05 | NUR ---
PT.IV FLUSHED AND MEDICATED W/COUMADIN; SHE REPORTS AT THIS TIME THAT HER MILD DISCOMFORT IN HER EPIGASTRIC AREA HAS IMPROVED AND IS NO LONGER BOTHERING HER. FAMILY IS AT BS AND PT.DENIES ANY OTHER NEEDS AT THIS TIME
[2017-05-12 16:42] VITALS: BP 130/69
--- NOTE | 2017-05-12 16:45 | NUR ---
TWO IV SITE ATTEMPTS TO NO AVAIL, WILL F/UP W/VOICER TO ATTEMPT TO GET WORKING IV SITE. PT.REPORTED THAT SHE IS VERY DIFFICULT TO GET.
[2017-05-12 21:03] VITALS: BP 137/77
--- NOTE | 2017-05-12 21:40 | NUR ---
PT RESTING IN SEMI FOWLERS POSITION WITH FAMILY AT BEDSIDE;PT NOTED TO BE MAINLY HEBREW SPEAKING;PT DENIES ANY PAIN OR DISCOMFORTS;IV SITE TO LAC FLUSHED AND PATENT;02 ON @ 2 LITERS VIA NC,PURSED LIP BREATHING TECHNIQUE EDUCATED AND PT DEMONSTRATED UNDERSTANDING;ASSESSMENT COMPLETED;SKIN INTACT;TELE MONITOR IN PLACE;PT DENIES ANY NEEDS AT THIS TIME;SAFETY PRECAUTIONS REINFORCED;BED IN LOWEST POSITION WITH CALL LIGHT IN REACH;WILL CONTINUE TO MONITOR
[2017-05-13 00:20] VITALS: BP 137/88
--- NOTE | 2017-05-13 00:20 | NUR ---
PT APPEARS TO BE SLEEPING AT THIS TIME WITH FAMILY AT BEDSIDE;WOKE PT TO OBTAIN VS;PT DENIES ANY PAIN OR NEEDS;RESPIRATIONS EVEN AND UNLABORED ON 02 @ 2 LITERS VIA NC;FALL PRECAUTIONS IN PLACE;CALL LIGHT WITHIN REACH;WILL CONTINUE TO MONITOR
[2017-05-13 05:00] VITALS: BP 129/71
--- NOTE | 2017-05-13 05:00 | NUR ---
PT CALLED WRITTER TO ROOM TO REPORT A NOSE BLEED;PT EDUCATED TO ELEVATE HEAD AND APPLY PRESSURE;NEW LINENS AND GOWN PROVIDED;PT RE-POSITIONED INTO BED;02 0N @ 2 LITERS VIA NC;PT DENIES ANY NEEDS;CALL LIGHT IN REACH;WILL CONTINUE TO MONITOR
[2017-05-13 06:17] LABS: INTERNATIONAL NORMALIZED RATIO 1.5 RATIO (0.7-1.3); PROTHROMBIN TIME 17.2 SECONDS (9.0-12.5)
[2017-05-13 07:44] VITALS: BP 129/74
[2017-05-13 08:06] LABS: HEMATOCRIT 38.4 % (37.0-47.0); HEMOGLOBIN 11.8 g/dl (12.0-16.0); IMMATURE GRANULOCYTES 0.4 % (0.0-1.0); MEAN CELL VOLUME 92.5 fL CALC (80.0-100.0); MEAN CORPUSCULAR HGB 28.4 pG CALC (26.0-32.0); MEAN CORPUSCULAR HGB CONC 30.7 g/L CALC (32.0-36.0); NEUT# 5.86 thou/uL (2.00-7.15); RED BLOOD COUNT 4.15 mill/uL (4.20-5.60); RED CELL DISTRI WIDTH 13.6 % (11.5-15.5)
[2017-05-13 08:16] LABS: ALBUMIN 3.9 g/dL (3.2-5.0); ALKALINE PHOSPHATASE 75 u/l (38-126); ANION GAP 13 (6-22 (CALC)); BILIRUBIN, TOTAL 1.1 mg/dL (0.0-1.4); BUN 16 mg/dL (8-23); BUN/CREATININE RATIO 25 (12-20 (CALC)); CALCIUM 8.9 mg/dL (8.4-10.2); CARBON DIOXIDE 32 mmol/l (22-30); CHLORIDE 99 mmol/l (95-108); CREATININE 0.6 mg/dL (0.5-1.0); GFR > 60 ML/MIN (>=60 (CALC)); GFR FOR AFR.AMER. > 60 ML/MIN (>=60 (CALC)); GLUCOSE 58 mg/dL (82-115); POTASSIUM 3.3 mmol/l (3.5-5.1); SGOT/AST 33 u/l (9-36); SGPT/ALT 47 u/l (11-66); SODIUM 141 mmol/l (137-146)
--- NOTE | 2017-05-13 08:34 | NUR ---
PHYSICAL THERAPY IN WITH PT
[2017-05-13 11:32] VITALS: BP 146/74
--- NOTE | 2017-05-13 12:00 | NUR ---
CARE OF PT ASSUMED BY THIS NURSE, PT SEEN AWAKE, ALERT, ORIENTED, FAMILY MEMBERS AT BEDSIDE. PT WITH COARSE LUNG SOUNDS REPORTED, SOB WITH EXERTION. TO MONITOR.
[2017-05-13 15:45] VITALS: BP 157/72
--- NOTE | 2017-05-13 17:04 | NUR ---
PT PROVIDED LOVENOX ORDERED, CONTINUES TO REST IN THE BED IN NO ACUTE DISTRESS WITH FAMILY AT BEDSIDE.
[2017-05-13 19:27] VITALS: BP 128/71
--- NOTE | 2017-05-13 20:12 | NUR ---
PT SITTING IN CHAIR RESPIRATIONS EVEN AND UNLABORED ON O2. ADMIT TO SORE THROAT, BUT ADMTIS TO FEELING BETTER. FAMILY AT BED SIDE. CALL LIGHT IN REACH, WILL CONTINUE TO MONITOR.
--- NOTE | 2017-05-13 22:54 | NUR ---
PT IN BED WITH EYES CLOSED, RESPIRATIONS EVEN AND UNLABORED. DAUGHTER AT BED SIDE.
[2017-05-14] VITALS (8 sets, daily range): BP systolic 108–154; BP diastolic 50–86
--- NOTE | 2017-05-14 03:28 | NUR ---
RESTING IN BED WITH EYES CLOSED, RESPIRATIONS EVEN AND UNLABORED. CALL LIGHT IN REACH, DAUGHTER AT BED SIDE.
[2017-05-14 06:03] LABS: ANION GAP 12 (6-22 (CALC)); BUN 16 mg/dL (8-23); BUN/CREATININE RATIO 23 (12-20 (CALC)); CARBON DIOXIDE 34 mmol/l (22-30); CHLORIDE 100 mmol/l (95-108); CREATININE 0.7 mg/dL (0.5-1.0); GFR > 60 ML/MIN (>=60 (CALC)); GFR FOR AFR.AMER. > 60 ML/MIN (>=60 (CALC)); GLUCOSE 50 mg/dL (82-115); POTASSIUM 3.6 mmol/l (3.5-5.1); SODIUM 143 mmol/l (137-146)
[2017-05-14 06:13] LABS: INTERNATIONAL NORMALIZED RATIO 1.5 RATIO (0.7-1.3); PROTHROMBIN TIME 16.6 SECONDS (9.0-12.5)
--- NOTE | 2017-05-14 07:10 | NUR ---
REPORT RECEIVED FROM [place]. PT OOB AND SITTING AT BS CHAIR WITH FAMILY. REPORTS "NOT FEELING HERSELF" LAB DRAW GLUCOSE WAS 50 AND ACCUCHECK IS 75. PT DRINKING GLUCERNA. RE-ASSURED THAT BREAKFAST WOULD BE AROUND 0730. STATES UNDERSTANDING.
--- NOTE | 2017-05-14 11:20 | NUR ---
FAMILY AT BS NOVOLOG 3 UNITS GIVEN. PT STATES UNDERSTANDING, DENIES NEEDS OR CONCERNS, WILL CONTINUE TO MONITOR.
--- NOTE | 2017-05-14 15:15 | NUR ---
Patient seen this PM for gait training, gait belt and shoes on prior to doing so. O2 sats 94% prior to ambulation. Sit to stand with min. assist of one. Pt. ambulated 2x45 feet with RW and CGA of one. Continual verbal cues needed throughout ambulation for increased step length and height as pt. demonstrates shuffling gait. Monitored O2 sats during ambulation and ranged between 92% and 96% on room air. Pt. returned to resting in chair with son in room, pt. without complaints. O2 sats at 96% after resting.
--- NOTE | 2017-05-14 18:18 | NUR ---
PT SITTING UPRIGHT IN BED, AWAITING DINNER TRAY.
--- NOTE | 2017-05-14 20:40 | NUR ---
PT RESTING IN SEMI FOWLERS POSITION WITH SON AT BEDSIDE;PT IS NOTED TO BE COMORAN SPEAKING ONLY;IV SITE TO LAC FLUSHED AND PATENT;PT STATES THAT SHE IS FEELING BETTER TODAT;ASSESSMENT COMPLETED;RESPIRATIONS EVEN AND UNLABORED ON 02 @ 2 LITERS VIA NC;TELE MONITOR IN PLACE;SKIN INTACT;PT DENIES ANY NEEDS AT THIS TIME;SAFETY PRECAUTIONS REINFORCED;PT EDUCATED TO CALL FOR ASSISTANCE IF NEEDED;CALL LIGHT IN REACH;WILL CONTINUE TO MONITOR
--- NOTE | 2017-05-15 00:23 | NUR ---
PT APPEARS TO BE SLEEPING IN SUPINE POSITION WITH FAMILY AT BEDSIDE;NO S/S OF DISTRESS NOTED;RESPIRATIONS EVEN AND UNLABORED ON 02 @ 2 LITERS;TELE MONITOR AND FALL PRECAUTIONS IN PLACE;CALL LIGHT WITHIN REACH;WILL CONTINUE TO MONITOR
[2017-05-15 03:55] VITALS: BP 138/77
--- NOTE | 2017-05-15 04:20 | NUR ---
PT APPEARS TO BE SLEEPING IN SUPINE POSITION WITH FAMILY AT BEDSIDE;NO S/S OF DISTRESS NOTED;RESPIRATIONS EVEN AND UNLABORED ON 02 @ 2 LITERS;TELE MONITOR IN PLACE;BED IN LOWEST POSITION WITH CALL LIGHT IN REACH;WILL CONTINUE TO MONITOR
[2017-05-15 06:14] LABS: INTERNATIONAL NORMALIZED RATIO 1.6 RATIO (0.7-1.3); PROTHROMBIN TIME 17.9 SECONDS (9.0-12.5)
--- NOTE | 2017-05-15 07:00 | NUR ---
RECEIVED BEDSIDE REPORT FROM RANDY ALAS. RESTING IN BED WITH EYES CLOSED, AWAKENS EASILY. RESPS EVEN AND UNLABORED ON O2 VIA NC, TELE MONITOR IN PLACE. FAMILY AT BEDSIDE. VOICES NO NEEDS AT THIS TIME. PLAN OF CARE DISCUSSED. SAFETY PRECAUTIONS REINFORCED. BED IN LOWEST POSITION WITH WHEELS LOCKED. CALL LIGHT WITHIN REACH. WILL CONTINUE TO MONITOR.
--- NOTE | 2017-05-15 08:40 | NUR ---
AMBULATING IN HALLWAY WITH PHYSICAL THERAPY.
--- NOTE | 2017-05-15 08:50 | NUR ---
DR RAMIREZ IN WITH PT. FAMILY AT BEDSIDE.
[2017-05-15 09:05] VITALS: BP 150/82
--- NOTE | 2017-05-15 09:57 | NUR ---
PATIENT REPORTS 5/10 PAIN ON HER LEFT LEG TODAY. PATIENT WAS ABLE TO GET UP WITH ROLLING WALKER TODAY WITH SBA. PATIENT AMBULATED TO THE BATHROOM WITH HER DAUGHTER MIN A AND AMBULATED IN THE HALLWAYS 60 FEET X 2 AND WENT BACK TO HER BED EXHAUSTED. PATIENT REPORTED NO INCREASE IN PAIN AFTER WALKING WAS ABLE TO GET BACK TO BED SAFELY WITHOUT UNTOWARD INCIDENT.
[2017-05-15 11:02] VITALS: BP 112/55
--- NOTE | 2017-05-15 12:00 | NUR ---
SITTING ON SIDE OF BED EATING LUNCH. FAMILY AT BEDSIDE. RESPS EVEN AND UNLABORED ON ROOM AIR, TELE MONITOR IN PLACE. VOICES NO NEEDS AT THIS TIME. CALL LIGHT WITHIN REACH. WILL CONITNUE TO MONITOR.
[2017-05-15] MEDS ORDERED: IPRATROPIU0.5 MG/3 M IN (13:22)
[2017-05-15] MEDS ORDERED: KLONOPIN0.5 MG PO (13:39)
[2017-05-15] MEDS ORDERED: LEVEMIR100 UNIT/M SC ×2 (13:41→13:42)
--- NOTE | 2017-05-15 15:22 | NUR ---
Discharge instructions given. Patient verbalizes understanding of same. Discharged in stable condition via Medical Transport to [facility] with *Other. All belongings sent with pt. TO [facility] VIA MEDICAL TRANSPORT ACCOMPANIED BY DAUGHTER
--- NOTE | 2017-05-15 16:31 | NUR ---
NURSE TO NURSE REPORT CALLED TO ALLYSON ALAS AT [facility].
== END 2017-05-15 15:21 | DRG 556 ==
LOC: ENPENDDIS → ED 16:02 → ED-I 17:01 → ED 17:33 → MS2 17:34
PROVIDERS: Emergency Medicine; Internal Medicine; ADMIT Internal Medicine; ATTEND Internal Medicine
DX: M62.81 Muscle weakness (generalized) (principal); J96.11 Chronic respiratory failure with hypoxia; E11.649 Type 2 diabetes mellitus with hypoglycemia without coma; I11.0 Hypertensive heart disease with heart failure; I50.22 Chronic systolic (congestive) heart failure; I48.91 Unspecified atrial fibrillation; E87.5 Hyperkalemia; G40.909 Epilepsy, unspecified, not intractable, without status epilepticus; E88.81 Metabolic syndrome and other insulin resistance; E66.01 Morbid (severe) obesity due to excess calories; I25.10 Atherosclerotic heart disease of native coronary artery without angina pectoris; J44.9 Chronic obstructive pulmonary disease, unspecified; E78.5 Hyperlipidemia, unspecified; I25.5 Ischemic cardiomyopathy; M19.90 Unspecified osteoarthritis, unspecified site; F32.9 Major depressive disorder, single episode, unspecified; G47.33 Obstructive sleep apnea (adult) (pediatric); M48.00 Spinal stenosis, site unspecified; Z68.39 Body mass index [BMI] 39.0-39.9, adult; Z79.4 Long term (current) use of insulin; Z79.01 Long term (current) use of anticoagulants; Z95.1 Presence of aortocoronary bypass graft
CPT/HCPCS: G0378; J1650

== ENCOUNTER 2017-07-17 16:41 | Observation (INO) | payer MEDICARE, MEDICAID ==
[~2017-07-17] VITALS: Ht 162.6 cm; Wt 106.3 kg
[~2017-07-17 16:41] MED LIST changes: +IPRATROPIU0.5 MG/3 M IN; +LEVEMIR100 UNIT/M SC; +PROTONIX40 MG PO
--- NOTE | 2017-07-17 16:41 | NUR ---
PT TO ROOM FOR TREATMENT VIA EMS
[2017-07-17 17:19] LABS: HEMOGLOBIN 11.7 g/dl (12.0-16.0); IMMATURE GRANULOCYTES 0.3 % (0.0-1.0); MEAN CELL VOLUME 89.6 fL CALC (80.0-100.0); MEAN CORPUSCULAR HGB 28.3 pG CALC (26.0-32.0); MEAN CORPUSCULAR HGB CONC 31.6 g/L CALC (32.0-36.0); NEUT# 4.87 thou/uL (2.00-7.15); RED BLOOD COUNT 4.13 mill/uL (4.20-5.60); RED CELL DISTRI WIDTH 14.1 % (11.5-15.5)
[2017-07-17 17:28] LABS: URINE BILIRUBIN - DIPSTICK NEGATIVE (NEGATIVE); URINE BLOOD DIPSTICK NEGATIVE (NEGATIVE); URINE CLARITY CLEAR; URINE COLOR YELLOW; URINE GLUCOSE - DIPSTICK NEGATIVE (NEGATIVE); URINE KETONE NEGATIVE (NEGATIVE); URINE LEUK ESTERASE NEGATIVE (NEGATIVE); URINE NITRITE - DIPSTICK NEGATIVE (Negative); URINE PROTEIN - DIPSTICK NEGATIVE (NEG-TRACE); URINE SPECIFIC GRAVITY <=1.005; URINE UROBILINOGEN - DIPSTICK 0.2 E.U./dL (0.2)
--- NOTE | 2017-07-17 17:35 | NUR ---
PATIENT RATES CHEST PAIN 6/10. STATES CHEST PAIN THAT RADIATES TO LEFT ARM. PATIENT TO BSC X2 STAFF ASSIST.
[2017-07-17 17:39] LABS: INTERNATIONAL NORMALIZED RATIO 1.9 RATIO (0.7-1.3); PROTHROMBIN TIME 22.1 SECONDS (9.0-12.5)
[2017-07-17 17:41] LABS: ALBUMIN 4.1 g/dL (3.2-5.0); ALKALINE PHOSPHATASE 82 u/l (38-126); AMYLASE 61 u/l (30-110); ANION GAP 16 (6-22 (CALC)); BILIRUBIN, TOTAL 0.9 mg/dL (0.0-1.4); BUN 17 mg/dL (8-23); BUN/CREATININE RATIO 23 (12-20 (CALC)); CALCIUM 9.1 mg/dL (8.4-10.2); CARBON DIOXIDE 32 mmol/l (22-30); CHLORIDE 95 mmol/l (95-108); CREATININE 0.7 mg/dL (0.5-1.0); GFR > 60 ML/MIN (>=60 (CALC)); GFR FOR AFR.AMER. > 60 ML/MIN (>=60 (CALC)); GLUCOSE 192 mg/dL (82-115); LIPASE 85 u/l (23-300); POTASSIUM 3.6 mmol/l (3.5-5.1); SGOT/AST 23 u/l (9-36); SGPT/ALT 31 u/l (11-66); SODIUM 139 mmol/l (137-146); TOTAL PROTEIN 7.7 g/dL (6.3-8.2)
[2017-07-17 17:49] LABS: MYOGLOBIN 35 ng/mL (0 - 62)
[2017-07-17] MEDS ORDERED: REQUIP0.5 MG PO (18:11)
--- NOTE | 2017-07-17 18:13 | NUR ---
PATIENT RESTING ON STRETCHER, DAUGHTER AT BEDSIDE. REPORTS PAIN 6/10. 2L O2 APPLIED VIA NC.
--- NOTE | 2017-07-17 18:30 | NUR ---
MD AT BEDSIDE TO DISCUSS RESULTS.
--- NOTE | 2017-07-17 19:06 | NUR ---
REPORT GIVEN TO MICHELL MOTLEY.
--- NOTE | 2017-07-17 19:27 | NUR ---
PATIENT AWARE OF PENDING ADMISSION. WILL TRANSPORT WHEN BED ASSIGNMENT IS CLEAN. PATIENT ASSISTED ON AND OFF BEDSIDE COMODE.
--- NOTE | 2017-07-17 19:50 | NUR ---
ROOM IS READY. PATIENT TO FLOOR VIA [id number]., ON MONITOR WITH RN.
[2017-07-17 19:55] VITALS: BP 144/86
--- NOTE | 2017-07-17 20:55 | NUR ---
PATIENT ARRIVED TO THE FLOOR FROM ED IN STABLE CONDITION VIA WHEELCHIAR AND ACCOMPANIED BY ED STAFF. PATIENT WEIGHED AND SETTLED TO BED. FAMILY WITH PATIENT. ORIENT PATIENT TO ROOM CALL SYSTEM THROUGH EKG TECHNICIAN. BED IN LOW POSITION, CALL LIGHT IN REACH.
--- NOTE | 2017-07-18 | NUR ---
PATIENT RESTING WITH EYES CLOSED AND APPEARS TO BE ASLEEP. RESPIRATION EVEN AND UNLABORED. NO APPARENT ACUTE CHANGES NOTED IN PATIENT'S CONDITION.
--- NOTE | 2017-07-18 04:00 | NUR ---
NO APPARENT ACUTE CHANGES NOTED IN PATIENT'S CONDITION.
[2017-07-18 04:05] VITALS: BP 129/64
[2017-07-18 05:30] LABS: HEMATOCRIT 38.1 % (37.0-47.0); HEMOGLOBIN 11.9 g/dl (12.0-16.0); IMMATURE GRANULOCYTES 0.4 % (0.0-1.0); MEAN CELL VOLUME 90.7 fL CALC (80.0-100.0); MEAN CORPUSCULAR HGB 28.3 pG CALC (26.0-32.0); MEAN CORPUSCULAR HGB CONC 31.2 g/L CALC (32.0-36.0); NEUT# 5.41 thou/uL (2.00-7.15); RED BLOOD COUNT 4.2 mill/uL (4.20-5.60); RED CELL DISTRI WIDTH 14.1 % (11.5-15.5)
[2017-07-18 05:46] LABS: INTERNATIONAL NORMALIZED RATIO 1.9 RATIO (0.7-1.3); PROTHROMBIN TIME 21.1 SECONDS (9.0-12.5)
[2017-07-18 05:47] LABS: ALBUMIN 3.8 g/dL (3.2-5.0); ALKALINE PHOSPHATASE 80 u/l (38-126); ANION GAP 13 (6-22 (CALC)); BILIRUBIN, TOTAL 1.1 mg/dL (0.0-1.4); BUN 13 mg/dL (8-23); BUN/CREATININE RATIO 21 (12-20 (CALC)); CALCIUM 9.1 mg/dL (8.4-10.2); CARBON DIOXIDE 34 mmol/l (22-30); CHLORIDE 98 mmol/l (95-108); CREATININE 0.6 mg/dL (0.5-1.0); GFR > 60 ML/MIN (>=60 (CALC)); GFR FOR AFR.AMER. > 60 ML/MIN (>=60 (CALC)); GLUCOSE 57 mg/dL (82-115); MAGNESIUM 1.7 mg/dL (1.6-2.3); POTASSIUM 3.2 mmol/l (3.5-5.1); SGOT/AST 23 u/l (9-36); SGPT/ALT 31 u/l (11-66); SODIUM 142 mmol/l (137-146)
--- NOTE | 2017-07-18 07:25 | NUR ---
PT IN BED WITH EYES CLOSED, RESPONDS EASILY TO VERBAL COMMAND. A/O X3, OOB TO CHAIR WITH SLOW STEADY GAIT, SITTING IN CHAIR FOR BREAKFAST. DENIES CHEST PAIN, RESPIRATIONS EVEN AND UNALBORED. ENCOURAGED TO USE CALL LIGHT FOR ASSISTANCE.
[2017-07-18 07:31] VITALS: BP 106/40
[2017-07-18 11:04] VITALS: BP 121/62
--- NOTE | 2017-07-18 13:09 | NUR ---
DOWN TO RADIOLOGY VIA W/C ACCOMPANIED BY VOLUNTEER, DAUGHTER AT PT'S SIDE FOR SWALLOW STUDY.
--- NOTE | 2017-07-18 13:47 | NUR ---
RETURNED TO ROOM FROM CT.
--- NOTE | 2017-07-18 14:53 | NUR ---
Discharge instructions given. Patient verbalizes understanding of same. Discharged in stable condition via Wheelchair to Home with family. All belongings sent with pt.
== END 2017-07-18 14:50 | disposition home or self-care (01) ==
LOC: ED 16:41 → ED-I 17:22 → ED 17:22 → ED-I 18:23 → ED 18:38 → MS2 18:39
PROVIDERS: Emergency Medicine; ADMIT Internal Medicine; ATTEND Internal Medicine
PROC: 3E0234Z Introduction of Serum, Toxoid and Vaccine into Muscle, Percutaneous Approach (ICD-10-PCS; principal; 2017-07-18)
DX: R07.89 Other chest pain (principal); J44.1 Chronic obstructive pulmonary disease with (acute) exacerbation; I25.10 Atherosclerotic heart disease of native coronary artery without angina pectoris; I11.0 Hypertensive heart disease with heart failure; I50.9 Heart failure, unspecified; E11.649 Type 2 diabetes mellitus with hypoglycemia without coma; I48.91 Unspecified atrial fibrillation; E78.5 Hyperlipidemia, unspecified; E66.9 Obesity, unspecified; G47.33 Obstructive sleep apnea (adult) (pediatric); G40.909 Epilepsy, unspecified, not intractable, without status epilepticus; K21.0 Gastro-esophageal reflux disease with esophagitis; R13.10 Dysphagia, unspecified; M54.30 Sciatica, unspecified side; R53.1 Weakness; Z68.41 Body mass index [BMI] 40.0-44.9, adult; Z79.4 Long term (current) use of insulin; Z95.1 Presence of aortocoronary bypass graft; Z95.0 Presence of cardiac pacemaker; Z79.01 Long term (current) use of anticoagulants; Z23 Encounter for immunization

== ENCOUNTER 2017-08-08 13:55 | Inpatient (IN) | payer MEDICARE, MEDICAID ==
[~2017-08-08] VITALS: Ht 162.6 cm; Wt 109.3 kg
[~2017-08-08 13:55] MED LIST changes: +REQUIP0.5 MG PO
[2017-08-08 15:13] LABS: HEMATOCRIT 33.3 % (37.0-47.0); HEMOGLOBIN 10.9 g/dl (12.0-16.0); IMMATURE GRANULOCYTES 0.3 % (0.0-1.0); MEAN CELL VOLUME 86.3 fL CALC (80.0-100.0); MEAN CORPUSCULAR HGB 28.2 pG CALC (26.0-32.0); MEAN CORPUSCULAR HGB CONC 32.7 g/L CALC (32.0-36.0); NEUT# 5.27 thou/uL (2.00-7.15); RED BLOOD COUNT 3.86 mill/uL (4.20-5.60); RED CELL DISTRI WIDTH 13.9 % (11.5-15.5)
[2017-08-08 15:20] LABS: ALBUMIN 3.8 g/dL (3.2-5.0); ALKALINE PHOSPHATASE 75 u/l (38-126); ANION GAP 13 (6-22 (CALC)); BILIRUBIN, TOTAL 1.2 mg/dL (0.0-1.4); BUN 20 mg/dL (8-23); BUN/CREATININE RATIO 27 (12-20 (CALC)); CALCIUM 8.8 mg/dL (8.4-10.2); CARBON DIOXIDE 28 mmol/l (22-30); CHLORIDE 86 mmol/l (95-108); CREATININE 0.7 mg/dL (0.5-1.0); GFR > 60 ML/MIN (>=60 (CALC)); GFR FOR AFR.AMER. > 60 ML/MIN (>=60 (CALC)); GLUCOSE 176 mg/dL (82-115); SGOT/AST 38 u/l (9-36); SGPT/ALT 33 u/l (11-66); SODIUM 123 mmol/l (137-146); TOTAL PROTEIN 6.9 g/dL (6.3-8.2)
[2017-08-08 15:32] LABS: MYOGLOBIN 85 ng/mL (0 - 62)
[2017-08-08 17:21] VITALS: BP 169/86
[2017-08-08 17:21] LABS: INTERNATIONAL NORMALIZED RATIO 1.5 RATIO (0.7-1.3); PROTHROMBIN TIME 17.1 SECONDS (9.0-12.5)
[2017-08-08 19:10] VITALS: BP 121/69
[2017-08-08 23:37] VITALS: BP 112/71
[2017-08-09 05:15] VITALS: BP 140/87
[2017-08-09 06:04] LABS: HEMATOCRIT 35.6 % (37.0-47.0); HEMOGLOBIN 11.7 g/dl (12.0-16.0); MEAN CELL VOLUME 86.6 fL CALC (80.0-100.0); MEAN CORPUSCULAR HGB 28.5 pG CALC (26.0-32.0); MEAN CORPUSCULAR HGB CONC 32.9 g/L CALC (32.0-36.0); RED BLOOD COUNT 4.11 mill/uL (4.20-5.60); RED CELL DISTRI WIDTH 13.8 % (11.5-15.5)
[2017-08-09 06:12] LABS: URINE BILIRUBIN - DIPSTICK NEGATIVE (NEGATIVE); URINE BLOOD DIPSTICK NEGATIVE (NEGATIVE); URINE CLARITY CLEAR; URINE COLOR YELLOW; URINE GLUCOSE - DIPSTICK NEGATIVE (NEGATIVE); URINE KETONE NEGATIVE (NEGATIVE); URINE LEUK ESTERASE NEGATIVE (NEGATIVE); URINE NITRITE - DIPSTICK NEGATIVE (Negative); URINE PH 6.5 (4.5-8.0); URINE PROTEIN - DIPSTICK 30 mg/dL (NEG-TRACE)
[2017-08-09 06:16] LABS: ANION GAP 14 (6-22 (CALC)); BUN 20 mg/dL (8-23); BUN/CREATININE RATIO 27 (12-20 (CALC)); CALCIUM 9.1 mg/dL (8.4-10.2); CARBON DIOXIDE 31 mmol/l (22-30); CHLORIDE 85 mmol/l (95-108); CREATININE 0.7 mg/dL (0.5-1.0); GFR > 60 ML/MIN (>=60 (CALC)); GFR FOR AFR.AMER. > 60 ML/MIN (>=60 (CALC)); GLUCOSE 122 mg/dL (82-115); POTASSIUM 4.2 mmol/l (3.5-5.1); SODIUM 126 mmol/l (137-146)
[2017-08-09 07:19] LABS: URINE SQUAMOUS EPITHELIAL CELL FEW EPI/hpf (0-FEW)
[2017-08-09 07:58] LABS: INTERNATIONAL NORMALIZED RATIO 1.4 RATIO (0.7-1.3); PROTHROMBIN TIME 15.8 SECONDS (9.0-12.5)
[2017-08-09 08:30] VITALS: BP 144/80
[2017-08-09 11:00] VITALS: BP 111/53
[2017-08-09 16:00] VITALS: BP 130/86
[2017-08-09 19:18] VITALS: BP 125/85
[2017-08-10 00:20] VITALS: BP 115/65
[2017-08-10 04:03] VITALS: BP 112/84
[2017-08-10 06:48] LABS: INTERNATIONAL NORMALIZED RATIO 1.3 RATIO (0.7-1.3); PROTHROMBIN TIME 14.4 SECONDS (9.0-12.5)
[2017-08-10 07:58] LABS: HEMATOCRIT 35.7 % (37.0-47.0); HEMOGLOBIN 11.7 g/dl (12.0-16.0); MEAN CELL VOLUME 85.6 fL CALC (80.0-100.0); MEAN CORPUSCULAR HGB 28.1 pG CALC (26.0-32.0); MEAN CORPUSCULAR HGB CONC 32.8 g/L CALC (32.0-36.0); RED BLOOD COUNT 4.17 mill/uL (4.20-5.60); RED CELL DISTRI WIDTH 13.6 % (11.5-15.5)
[2017-08-10 08:24] LABS: ANION GAP 16 (6-22 (CALC)); BUN 20 mg/dL (8-23); BUN/CREATININE RATIO 30 (12-20 (CALC)); CALCIUM 9.3 mg/dL (8.4-10.2); CARBON DIOXIDE 28 mmol/l (22-30); CHLORIDE 87 mmol/l (95-108); CREATININE 0.7 mg/dL (0.5-1.0); GFR > 60 ML/MIN (>=60 (CALC)); GFR FOR AFR.AMER. > 60 ML/MIN (>=60 (CALC)); GLUCOSE 139 mg/dL (82-115); POTASSIUM 4.4 mmol/l (3.5-5.1); SODIUM 126 mmol/l (137-146)
[2017-08-10 15:32] VITALS: BP 109/72
[2017-08-10 19:21] VITALS: BP 119/72
[2017-08-11 00:10] VITALS: BP 105/67
[2017-08-11 04:14] VITALS: BP 134/66
[2017-08-11 05:31] LABS: HEMATOCRIT 33.9 % (37.0-47.0); HEMOGLOBIN 11.3 g/dl (12.0-16.0); IMMATURE GRANULOCYTES 0.4 % (0.0-1.0); MEAN CORPUSCULAR HGB 28.3 pG CALC (26.0-32.0); MEAN CORPUSCULAR HGB CONC 33.3 g/L CALC (32.0-36.0); NEUT# 3.77 thou/uL (2.00-7.15); RED BLOOD COUNT 3.99 mill/uL (4.20-5.60); RED CELL DISTRI WIDTH 13.6 % (11.5-15.5)
[2017-08-11 05:46] LABS: ANION GAP 13 (6-22 (CALC)); BUN 18 mg/dL (8-23); BUN/CREATININE RATIO 29 (12-20 (CALC)); CALCIUM 9.2 mg/dL (8.4-10.2); CARBON DIOXIDE 28 mmol/l (22-30); CHLORIDE 88 mmol/l (95-108); CREATININE 0.6 mg/dL (0.5-1.0); GFR > 60 ML/MIN (>=60 (CALC)); GFR FOR AFR.AMER. > 60 ML/MIN (>=60 (CALC)); GLUCOSE 116 mg/dL (82-115); POTASSIUM 3.8 mmol/l (3.5-5.1); SODIUM 126 mmol/l (137-146)
[2017-08-11 05:51] LABS: INTERNATIONAL NORMALIZED RATIO 1.4 RATIO (0.7-1.3); PROTHROMBIN TIME 15.7 SECONDS (9.0-12.5)
[2017-08-11 08:00] VITALS: BP 135/74
[2017-08-11 12:10] VITALS: BP 103/59
[2017-08-11 15:33] VITALS: BP 144/76
[2017-08-11 19:15] VITALS: BP 136/67
[2017-08-12] VITALS (7 sets, daily range): BP systolic 107–152; BP diastolic 60–84
[2017-08-12 06:06] LABS: HEMATOCRIT 33.3 % (37.0-47.0); MEAN CELL VOLUME 85.6 fL CALC (80.0-100.0); MEAN CORPUSCULAR HGB 28.3 pG CALC (26.0-32.0); RED BLOOD COUNT 3.89 mill/uL (4.20-5.60); RED CELL DISTRI WIDTH 13.9 % (11.5-15.5)
[2017-08-12 06:10] LABS: INTERNATIONAL NORMALIZED RATIO 1.9 RATIO (0.7-1.3); PROTHROMBIN TIME 21.7 SECONDS (9.0-12.5)
[2017-08-12 06:11] LABS: ANION GAP 14 (6-22 (CALC)); BUN 15 mg/dL (8-23); BUN/CREATININE RATIO 22 (12-20 (CALC)); CALCIUM 9.1 mg/dL (8.4-10.2); CARBON DIOXIDE 29 mmol/l (22-30); CHLORIDE 90 mmol/l (95-108); CREATININE 0.7 mg/dL (0.5-1.0); GFR > 60 ML/MIN (>=60 (CALC)); GFR FOR AFR.AMER. > 60 ML/MIN (>=60 (CALC)); GLUCOSE 84 mg/dL (82-115); POTASSIUM 3.8 mmol/l (3.5-5.1); SODIUM 128 mmol/l (137-146)
[2017-08-13 04:39] VITALS: BP 129/75
[2017-08-13 05:58] LABS: ANION GAP 12 (6-22 (CALC)); BUN 17 mg/dL (8-23); BUN/CREATININE RATIO 23 (12-20 (CALC)); CALCIUM 8.8 mg/dL (8.4-10.2); CARBON DIOXIDE 31 mmol/l (22-30); CHLORIDE 92 mmol/l (95-108); CREATININE 0.7 mg/dL (0.5-1.0); GFR > 60 ML/MIN (>=60 (CALC)); GFR FOR AFR.AMER. > 60 ML/MIN (>=60 (CALC)); GLUCOSE 96 mg/dL (82-115); MAGNESIUM 1.6 mg/dL (1.6-2.3); SODIUM 131 mmol/l (137-146)
[2017-08-13 05:59] LABS: INTERNATIONAL NORMALIZED RATIO 2.1 RATIO (0.7-1.3); PROTHROMBIN TIME 23.8 SECONDS (9.0-12.5)
[2017-08-13 08:42] VITALS: BP 132/79
== END 2017-08-13 11:00 | disposition home health service (06) | DRG 641 ==
LOC: ED 13:55 → ED-I 16:09 → ED 16:25 → MS2 16:26
PROVIDERS: Emergency Medicine; Internal Medicine; ADMIT Internal Medicine; ATTEND Internal Medicine
DX: E87.1 Hypo-osmolality and hyponatremia (principal); I11.0 Hypertensive heart disease with heart failure; I48.91 Unspecified atrial fibrillation; J44.9 Chronic obstructive pulmonary disease, unspecified; I50.22 Chronic systolic (congestive) heart failure; G25.81 Restless legs syndrome; F32.9 Major depressive disorder, single episode, unspecified; E04.2 Nontoxic multinodular goiter; E11.9 Type 2 diabetes mellitus without complications; E78.5 Hyperlipidemia, unspecified; I25.10 Atherosclerotic heart disease of native coronary artery without angina pectoris; G47.33 Obstructive sleep apnea (adult) (pediatric); G40.909 Epilepsy, unspecified, not intractable, without status epilepticus; T50.2X5A Adverse effect of carbonic-anhydrase inhibitors, benzothiadiazides and other diuretics, initial encounter; K21.0 Gastro-esophageal reflux disease with esophagitis; R79.1 Abnormal coagulation profile; R23.3 Spontaneous ecchymoses; T45.515A Adverse effect of anticoagulants, initial encounter; Z95.0 Presence of cardiac pacemaker; Z95.1 Presence of aortocoronary bypass graft; Z79.4 Long term (current) use of insulin; Z79.02 Long term (current) use of antithrombotics/antiplatelets; Z79.82 Long term (current) use of aspirin
CPT/HCPCS: G0378

== ENCOUNTER 2017-11-12 13:11 | Inpatient (IN) | payer MEDICARE, MEDICAID ==
[~2017-11-12] VITALS: Ht 162.6 cm; Wt 109.6 kg
[~2017-11-12 13:11] MED LIST changes: +ZOLOFT50 MG PO
--- NOTE | 2017-11-12 13:35 | NUR ---
PT TAKEN TO ER ROOM 8 BY WC WITH DAUGHTER.
--- NOTE | 2017-11-12 13:50 | NUR ---
PATIENT HAS +3 TIBIAL EDEMA.
--- NOTE | 2017-11-12 14:00 | NUR ---
DAUGHTER REPORT THE USE OF C-PAP DURING THE NIGHT, DENIES ANY OXYGEN USE DURING THE DAY.
[2017-11-12 14:02] LABS: HEMATOCRIT 32.3 % (37.0-47.0); HEMOGLOBIN 10.3 g/dl (12.0-16.0); IMMATURE GRANULOCYTES 0.3 % (0.0-1.0); MEAN CORPUSCULAR HGB 28.4 pG CALC (26.0-32.0); MEAN CORPUSCULAR HGB CONC 31.9 g/L CALC (32.0-36.0); NEUT# 3.96 thou/uL (2.00-7.15); RED BLOOD COUNT 3.63 mill/uL (4.20-5.60); RED CELL DISTRI WIDTH 14.9 % (11.5-15.5)
[2017-11-12 14:17] LABS: ALBUMIN 4.1 g/dL (3.2-5.0); ALKALINE PHOSPHATASE 93 u/l (38-126); ANION GAP 18 (6-22 (CALC)); BILIRUBIN, TOTAL 0.9 mg/dL (0.0-1.4); BUN 32 mg/dL (8-23); BUN/CREATININE RATIO 32 (12-20 (CALC)); CALCIUM 9.7 mg/dL (8.4-10.2); CARBON DIOXIDE 32 mmol/l (22-30); CHLORIDE 93 mmol/l (95-108); GFR 54 ML/MIN (>=60 (CALC)); GFR FOR AFR.AMER. > 60 ML/MIN (>=60 (CALC)); GLUCOSE 136 mg/dL (82-115); POTASSIUM 4.1 mmol/l (3.5-5.1); SGOT/AST 29 u/l (9-36); SGPT/ALT 23 u/l (11-66); SODIUM 139 mmol/l (137-146); TOTAL PROTEIN 7.1 g/dL (6.3-8.2)
[2017-11-12 14:46] LABS: TSH, 3RD GENERATION 0.69 uIU/mL (0.47 - 4.68)
--- NOTE | 2017-11-12 15:05 | NUR ---
PATIENT TO BATHROOM X2 STAFF ASSIST TO BATHROOM AND BACK TO STRETCHER. URINE SAMPLE COLLECTED. CALL [facility] WITHIN REACH. WILL CONTINUE TO MONITOR.
[2017-11-12] MEDS ORDERED: BUMETANIDE1 MG PO (15:48)
[2017-11-12] MEDS ORDERED: METFORMIN500 MG PO (15:54)
[2017-11-12] MEDS ORDERED: CLONAZEPAM0.5 MG PO (15:56)
[2017-11-12] MEDS ORDERED: METOLAZONE2.5 MG PO (15:59)
[2017-11-12] MEDS ORDERED: KLOR-CON 1010 MEQ PO (16:00)
--- NOTE | 2017-11-12 16:01 | NUR ---
MED REC COMPLETED. PATIENT RESTING ON LEFT SIDE ON STRETCHER, VITAL SIGNS STABLE. DAUGHTER AT BEDSIDE. PATIENT REPORTS NO NEEDS AT THIS TIME. CALL LIGTH WITHIN REACH WILL CONTINUE TO MONITOR.
[2017-11-12 16:18] LABS: URINE BILIRUBIN - DIPSTICK NEGATIVE (NEGATIVE); URINE BLOOD DIPSTICK NEGATIVE (NEGATIVE); URINE COLOR YELLOW; URINE GLUCOSE - DIPSTICK NEGATIVE (NEGATIVE); URINE KETONE NEGATIVE (NEGATIVE); URINE LEUK ESTERASE NEGATIVE (NEGATIVE); URINE NITRITE - DIPSTICK NEGATIVE (Negative); URINE PROTEIN - DIPSTICK NEGATIVE (NEG-TRACE); URINE UROBILINOGEN - DIPSTICK 0.2 E.U./dL (0.2)
[2017-11-12 16:22] LABS: URINE CLARITY CLEAR
--- NOTE | 2017-11-12 17:34 | NUR ---
SBAR PRINTED TO FLOOR
--- NOTE | 2017-11-12 17:35 | NUR ---
MD AT BEDSIDE TO DISCUSS RESULTS AND PLANS TO ADMIT.
--- NOTE | 2017-11-12 17:55 | NUR ---
REPORT CALLED TO MICHELL TOM. STATES "I'LL CALL YOU RIGHT BACK."
--- NOTE | 2017-11-12 18:02 | NUR ---
REPORT CALLED TO MICHELL TOM.
--- NOTE | 2017-11-12 18:10 | NUR ---
PATIENT TRANSPORTED TO [facility] VIA STRETCHER IN STABLE CONDITION. ACCOMPANIED BY DAUGHTER. BEDSIDE REPORT GIVEN TO MICHELL TOM.
--- NOTE | 2017-11-12 18:15 | NUR ---
PT TO ROOM VIA STRTECHER ACCOMPANIED BY STAFF AND FAMILY; PT MAX ASSIST TO BED; PT SOB; O2 SAT 94% ON RA; #[address], NO REDNESS OR EDEMA NOTED; PT AND FAMILY ORIENTED TO ROOM AND CALL SYSTEM; WILL CONTINUE TO MONITOR.
[2017-11-12 20:05] VITALS: BP 116/59
--- NOTE | 2017-11-12 20:30 | NUR ---
PATIENT RESTING IN BED AT THIS TIME WITH SEVERAL FAMILY MEMBERS AT BEDSIDE. PATIENT WOLOF SPEAKING ONLY. FAMILY USED TRANSLATORS. PATIENT IS AWAKE ALERT AND ORIENTEDX3. FAMILY STATES THAT SHE WAS BROUGHT TO THE ER DUE TO FLUID RETENSION AND SOB. PATIENT HAS C-PAP FROM HOME TO BE USED AT HS. PATIENT WITH TELE MONITORING DEVICE IN PLACE. IV SITE TO RIGHT AC-APPEARS HEALTHY AND GOOD BLOOD RETURN WHEN FLUSHED. PATIENT SITH SLIGHT PEDAL EDEMA AND FEET ELEVATED ON PILLOWS. ORIENTED PATIENT AND FAMILY TO ROOM AND SURROUNDINGS. SAFETY PRECAUTIONS REVIEWED WITH PATIENT AND FAMILY. INSTRUCTED ON USE OF NURSE CALL LIGHT SYSTEM AND TV REMOTE. CALL LIGHT IN REACH. WILL CONT TO MONITOR.
--- NOTE | 2017-11-13 01:00 | NUR ---
CALLED TO THE PATIENT ROOM-DAUGHTER WITH CONCERNS THE PATIENT IS UP IN THE ROOM AND SEEMS CONFUSED. PATIENT WANTS TO SLEEP IN THE COT PROVIDED FOR DAUGHTER INSTEAD OF HER OWN BED. PATIENT WAS ASSISTED BACK TO THE BED WITH THE HELP OF THE DAUGHTER AND REPOSITIONED ON SIDE IN BED. CALL LIGHT IN REACH. WILL CONT TO MONITOR.
--- NOTE | 2017-11-13 03:47 | NUR ---
APPEARS SLEEPING AT THIS TIME WITH DAUGHTER AT BEDSIDE. C-PAP IN PLACE. CALL LIGHT IN REACH. WILL CONT TO MONITOR.
--- NOTE | 2017-11-13 05:45 | NUR ---
PATIENT UP IN THE ROOM WITH PATIENT DAUGHTER-CONFUSED AND THINKS THAT SHE IN IN FAITH. IV FOUND DISLODGED-NEW IV SITE STARTED TO LEFT FOREARM-#24 WITH GOOD BLOOD RETURN. PATIENT RESTING IN BED AT THIS TIME-STILL WITH RED SWOLLEN EYES WITH CRUSTY DRAINAGE. DAUGHTER AT BEDSIDE. CALL LIGHT IN REACH. WILL CONT TO MONITOR.
[2017-11-13 06:25] VITALS: BP 115/63
[2017-11-13 07:10] LABS: HEMATOCRIT 31.4 % (37.0-47.0); MEAN CORPUSCULAR HGB CONC 31.8 g/L CALC (32.0-36.0); RED BLOOD COUNT 3.57 mill/uL (4.20-5.60)
[2017-11-13 07:21] LABS: CALCIUM 9.6 mg/dL (8.4-10.2); CREATININE 1.1 mg/dL (0.5-1.0); POTASSIUM 4.4 mmol/l (3.5-5.1)
[2017-11-13 07:40] VITALS: BP 116/39
--- NOTE | 2017-11-13 07:40 | NUR ---
ASSESSMENT IS COMPLETED: IV SITE IS FREE FROM REDNESS OR EDEMA. TELE MONITOR IN PLACE. FAMILY IN THE ROOM.
--- NOTE | 2017-11-13 10:00 | NUR ---
DISCOVERED A SKIN TEAR ON LEFT ELBOW. CLEANED AND COVERED WITH BANDAID. PT WAS COMING FROM THE BATHROOM WITH FAMILY
[2017-11-13 11:00] VITALS: BP 110/63
--- NOTE | 2017-11-13 12:45 | NUR ---
PT HAS BEEN RELAXING IN BED WITH NO DISTRESS NOTED. IV SITE IS FREE FROM REDNESS OR EDEMA.
[2017-11-13] MEDS ORDERED: ROBITUSSIN200 MG/10 PO (14:33)
[2017-11-13] MEDS ORDERED: AMITIZA8 MCG PO (14:34)
[2017-11-13 14:53] LABS: INTERNATIONAL NORMALIZED RATIO 1.7 RATIO (0.7-1.3); PROTHROMBIN TIME 19.2 SECONDS (9.0-12.5)
--- NOTE | 2017-11-13 15:10 | NUR ---
PT TRANSPORTED TO HAVE CT SCAN COMPLETED
[2017-11-13 16:00] VITALS: BP 126/59
--- NOTE | 2017-11-13 16:00 | NUR ---
PT IS RELAXING OFF AND ON. IV SITE IS FREE FROM REDNESS OR EDEMA. FAMILY IN THE ROOM. CONTINUE TO OSBERVE AND MONITOR.
--- NOTE | 2017-11-13 17:09 | NUR ---
Pt was seen for mededucation rounds. Pt speaks only [place], but 3 sons were there to translate. Pt stated she's feeling better. She appears very sleepy. Son explained pt's daughter is in charge of medication. Son called pt's daughter. Daughter was concerned about platelets. Explained to daughter that INR was 1.1 and clopidogrel is meant to keep the platelets form "sticking together to form a clot". Daughter could think of no further questions or concerns. Sons could think of no futher questions or concerns. Pt was wished well, although seemed asleep.
[2017-11-13 18:22] LABS: INTERNATIONAL NORMALIZED RATIO 1.6 RATIO (0.7-1.3); PROTHROMBIN TIME 18.5 SECONDS (9.0-12.5)
--- NOTE | 2017-11-13 19:00 | NUR ---
PT RESTING IN BED. FAMILY IN ROOM. PT IS ALERT AND ORIENTED X3. PERRLA. RESP ARE EVEN AND UNLABORED. NO DISTRESS NOTED. LUNGS ARE CLEAR. HR IS REGULAR. TELE IN PLACE. EDEMA TO BILAT LOWER EXT. PULSES PALPABLE THROUGHOUT. BS ACTIVE. #24 LFA. SALINE LOCKED. NO REDNESS OR EDEMA NOTED. WILL CONTINUE TO MONITOR
[2017-11-13 19:40] VITALS: BP 102/67
--- NOTE | 2017-11-13 23:11 | NUR ---
CT CALLED FOR BRAIN CT. PT SLEEPING. WILL GO FOR CT IN AM.
[2017-11-13 23:25] VITALS: BP 102/63
--- NOTE | 2017-11-14 | NUR ---
PT RESTING IN BED FAMILY IN ROOM. RESP EVEN AND UNLABORED. NO DISTRESS NOTED
--- NOTE | 2017-11-14 04:01 | NUR ---
PT RESTING IN BED WITH EYES CLOSED. FAMILY IN ROOM. RESP ARE EVEN AND UNLABORED. NO DISTRESS NOTED. WILL CONTINUE TO MONITOR
--- NOTE | 2017-11-14 04:40 | NUR ---
PT TO CT FOR BRAIN CT VIA WC
--- NOTE | 2017-11-14 05:15 | NUR ---
LAB INTO DRAW AM LABS
[2017-11-14 05:45] LABS: HEMATOCRIT 32.1 % (37.0-47.0); HEMOGLOBIN 10.2 g/dl (12.0-16.0); IMMATURE GRANULOCYTES 0.2 % (0.0-1.0); MEAN CELL VOLUME 88.2 fL CALC (80.0-100.0); MEAN CORPUSCULAR HGB CONC 31.8 g/L CALC (32.0-36.0); NEUT# 3.56 thou/uL (2.00-7.15); RED BLOOD COUNT 3.64 mill/uL (4.20-5.60); RED CELL DISTRI WIDTH 14.9 % (11.5-15.5)
[2017-11-14 06:09] LABS: ANION GAP 17 (6-22 (CALC)); BUN 29 mg/dL (8-23); BUN/CREATININE RATIO 31 (12-20 (CALC)); CARBON DIOXIDE 33 mmol/l (22-30); CHLORIDE 96 mmol/l (95-108); CREATININE 0.9 mg/dL (0.5-1.0); GFR > 60 ML/MIN (>=60 (CALC)); GFR FOR AFR.AMER. > 60 ML/MIN (>=60 (CALC)); GLUCOSE 67 mg/dL (82-115); POTASSIUM 4.2 mmol/l (3.5-5.1); SODIUM 141 mmol/l (137-146)
[2017-11-14 07:50] VITALS: BP 164/64
--- NOTE | 2017-11-14 08:15 | NUR ---
V/S ASSESSED, FAMILY AT BEDSIDE, PT.SLEEPING.
--- NOTE | 2017-11-14 10:54 | NUR ---
PT.MEDICATED WITH AM MEDICATIONS ORDERED AND PT.ASSESSED. FAMILY AT BEDSIDE. I ENCOURAGED PT.TO SIT UP IN RECLINER FOR A WHILE AND AMBULATE, SHE REFUSED.
[2017-11-14 11:20] VITALS: BP 134/43
[2017-11-14 12:50] LABS: INTERNATIONAL NORMALIZED RATIO 1.7 RATIO (0.7-1.3); PROTHROMBIN TIME 19.7 SECONDS (9.0-12.5)
--- NOTE | 2017-11-14 13:50 | NUR ---
PT IN TO SEE PT. TODAY AND ASSISTED PT.TO AMBULATE, STATED 1X ASSIST. PT.ALSO SAT ON SIDE OF BED WHILE EATING LUNCH TODAY. FAMILY AT BEDSIDE
[2017-11-14 15:10] VITALS: BP 141/67
--- NOTE | 2017-11-14 15:16 | NUR ---
PT WAS SEEN RESTIN IN THE BED WITH O2 VIA NASAL CANNULA SET AT 2L, SPO2 AT 93%. TOOK THE O2 OFF PRIOR TO FUNCTIONAL ACTIVITY. MOD. A WAS OFFERED TO ACCOMPLISH SUPINE TO SHORT SITTING. [id number] WITH CGA AND RW. PT AMBULATED BEDSIDE WITH RW AND CGA. SPO2 DROPPED TO 87% ON ROOM AIR. PT REQUESTED SHE WANTED TO GO BACK TO BED. SUGGESTED TO SIT IN THE RECLINER INSTEAD, PT AGREED. MIN A TO [id number]. SPO2 ON ROOM AIR IMPROVED FROM 87%- 93%. REATTACHED O2 VIA NASAL CANNULA AT 2L. SPO2 INCREASED TO 97%. LEFT THE PT WITH RELATIVES. CALL FERNANDEZ WITHIN REACH. NO ADVERSE RXNS NOTED OR REPORTED AT THE END OF TX.
--- NOTE | 2017-11-14 18:30 | NUR ---
PT.IN RECLINER WITH FAMILY VISITING. O2NC ON, PT.DENIES ANY NEEDS. PT.IS SMILING AND SHOWS NO S/O DISTRESS. INSTRUCTED TO CALL IF ANY NEEDS ARISE
--- NOTE | 2017-11-14 19:00 | NUR ---
RECEIVED CHANGE OF SHIFT REPORT FROMTRANG RN. PATIENT ALERT AND ORIENTED AND LAYING IN BED. FAMILY AT BEDSIDE. NO APPARENT ACUTE DISTRES OR DISCOMFORT NOTED.
[2017-11-14 19:05] VITALS: BP 138/78
[2017-11-14 23:59] VITALS: BP 126/72
--- NOTE | 2017-11-15 | NUR ---
PATIENT RESTING WITH EYES CLOSED AND APPEARS TO BE ASLEEP. RESP EVEN AND NON LABORED. NO APPARENT ACUTE DISTRESS NOTED. WILL CONTINUE TO MONITOR.
--- NOTE | 2017-11-15 04:00 | NUR ---
PATIENT OOB BY SELF AND SITTING UP IN CHAIR.
--- NOTE | 2017-11-15 04:00 | NUR ---
NO APPARENT ACUTE CHANGES NOTED IN PT'S CONDITION AT THIS TIME.
[2017-11-15 04:29] VITALS: BP 136/82
--- NOTE | 2017-11-15 05:00 | NUR ---
PT'S BLOOD SUGAR LEVEL THIS AM IS 52 MG/dL. OJ GIVEN. NOTIFIED. ORDER TO RECHECKED IN 1 HOUR.
--- NOTE | 2017-11-15 06:00 | NUR ---
BLOOD SUGAR LEVEL ON RECHECKED IS 94 MG/dL
--- NOTE | 2017-11-15 07:00 | NUR ---
SHIFT CHANGE REPORT FROM SILVER MOTLEY AWAKE AND ALERT RESTING IN BED, DENIES PAIN/DISCOMFORT, O2 @ 2L IN PLACE VIA NC, TELE MONITOR IN PLACE, CALL FERNANDEZ IN REACH.
[2017-11-15 07:17] LABS: HEMATOCRIT 33.5 % (37.0-47.0); HEMOGLOBIN 10.4 g/dl (12.0-16.0); IMMATURE GRANULOCYTES 0.3 % (0.0-1.0); MEAN CELL VOLUME 90.1 fL CALC (80.0-100.0); NEUT# 4.58 thou/uL (2.00-7.15); RED BLOOD COUNT 3.72 mill/uL (4.20-5.60)
[2017-11-15 07:21] LABS: ANION GAP 15 (6-22 (CALC)); BUN 25 mg/dL (8-23); BUN/CREATININE RATIO 31 (12-20 (CALC)); CALCIUM 9.6 mg/dL (8.4-10.2); CARBON DIOXIDE 35 mmol/l (22-30); CHLORIDE 95 mmol/l (95-108); CREATININE 0.8 mg/dL (0.5-1.0); GFR > 60 ML/MIN (>=60 (CALC)); GFR FOR AFR.AMER. > 60 ML/MIN (>=60 (CALC)); GLUCOSE 93 mg/dL (82-115); POTASSIUM 4.3 mmol/l (3.5-5.1); SODIUM 140 mmol/l (137-146)
[2017-11-15 07:30] LABS: PROTHROMBIN TIME 22.3 SECONDS (9.0-12.5)
[2017-11-15 08:34] VITALS: BP 133/75
[2017-11-15 11:21] VITALS: BP 97/54
--- NOTE | 2017-11-15 12:00 | NUR ---
SITTING UP IN RECLINER, FAMILY IN ROOM ASSISTING WITH MEAL, NO C/O DISCOMFORT, CALL FERNANDEZ IN REACH.
--- NOTE | 2017-11-15 15:17 | NUR ---
PT WAS SEEN SITTING IN THE RECLINER WITH FAMILY IN THE ROOM. PT WAS ABLE TO STAND FROM SITTING UTILIZING B UE, ATTEMPTED TWICE TO STAND UP. AMBULATED IN A SLOW PACE WITH RW AND CGA ~50 FT. PT WAS THEN TOO TIRED TO WALK BACK THE ROOM AND REQUESTED TO SIT DOWN. PT SAT IN THE WHEELCHAIR HEN WHEELED BACK TO HER ROOM. SHALLOW BREATHING WAS NOTED AT THE END OF AMBULATION. HOWEVER SPO2 REMAINED ON 98% ON ROOM AIR ALTHROUGHOUT THE ACTIVITY. PT SAT DOWN TO THE RECLINER WITH LEG REST IN ELEVATED POSITION. CALL FERNANDEZ WITHIN REACH. NO ADVERSE REACTIONS NOTED OR REPORTED AT THE END TX.
[2017-11-15 15:29] VITALS: BP 132/64
--- NOTE | 2017-11-15 16:00 | NUR ---
RESTING IN BED, ALL NEEDS ADDRESSED, FAMILY IN ROOM, CALL FERNANDEZ IN REACH.
--- NOTE | 2017-11-15 19:00 | NUR ---
RECEIVED CHANGE OF SHIFT REPORT FROM MICHELL SHEA. PATIENT LYING IN BED AND APPEARS NOT TO BE IN ANY APPARENT ACUTE DISTRESS OR DISCOMFORT. FAMILY AT BEDSIDE AT THIS TIME. WILL CONTINUE TO MONITOR.
[2017-11-15 19:55] VITALS: BP 113/67
--- NOTE | 2017-11-16 | NUR ---
PT RESTING IN BED QUIETLY AT HIS TIME. NO APPARENT ACUTE DISTRESS NOTED.
--- NOTE | 2017-11-16 04:00 | NUR ---
NO APPARENT ACUTE CHANGES NOTED IN PATIENT'S CONDIION.
[2017-11-16 04:28] VITALS: BP 115/62
[2017-11-16 06:28] LABS: HEMATOCRIT 31.1 % (37.0-47.0); HEMOGLOBIN 9.8 g/dl (12.0-16.0); IMMATURE GRANULOCYTES 0.4 % (0.0-1.0); MEAN CELL VOLUME 89.6 fL CALC (80.0-100.0); MEAN CORPUSCULAR HGB 28.2 pG CALC (26.0-32.0); MEAN CORPUSCULAR HGB CONC 31.5 g/L CALC (32.0-36.0); NEUT# 3.8 thou/uL (2.00-7.15); RED BLOOD COUNT 3.47 mill/uL (4.20-5.60)
[2017-11-16 06:50] LABS: INTERNATIONAL NORMALIZED RATIO 2.4 RATIO (0.7-1.3); PROTHROMBIN TIME 26.8 SECONDS (9.0-12.5)
[2017-11-16 06:55] LABS: ANION GAP 16 (6-22 (CALC)); BUN 24 mg/dL (8-23); BUN/CREATININE RATIO 33 (12-20 (CALC)); CALCIUM 9.4 mg/dL (8.4-10.2); CARBON DIOXIDE 33 mmol/l (22-30); CHLORIDE 96 mmol/l (95-108); CREATININE 0.7 mg/dL (0.5-1.0); GFR > 60 ML/MIN (>=60 (CALC)); GFR FOR AFR.AMER. > 60 ML/MIN (>=60 (CALC)); GLUCOSE 157 mg/dL (82-115); MAGNESIUM 1.5 mg/dL (1.6-2.3); POTASSIUM 4.2 mmol/l (3.5-5.1); SODIUM 140 mmol/l (137-146)
--- NOTE | 2017-11-16 07:00 | NUR ---
SHIFT CHANGE REPORT FROM SILVER MOTLEY RESTING IN BED, ORIENTED TO PERSON, DENIES PAIN, TELE MONITOR IN PLACE, CALL FERNANDEZ IN REACH, FAMILY AT BEDSIDE.
[2017-11-16 08:11] VITALS: BP 152/82
[2017-11-16 11:21] VITALS: BP 144/84
[2017-11-16 15:18] VITALS: BP 142/73
--- NOTE | 2017-11-16 16:57 | NUR ---
RELAXING IN RECLINER WITH FAMILY MEMBERS AROUND, FAMILY HELP WITH AMBULATION, ALL NEEDS MET, CALL FERNANDEZ IN REACH.
[2017-11-16 19:25] VITALS: BP 150/93
--- NOTE | 2017-11-16 19:32 | NUR ---
BEDSIDE REPORT RECEIVED FROM MICHELL SHEA. PT UP TO BATHROOM AT THIS TIME. FAMILY AT BEDSIDE. DENIES PAIN CURRENTLY. RESPIRATIONS EVEN AND UNLABORED ON ROOM AIR. PLAN OF CARE DISCUSSED. PT ENCOURAGED TO VERBALIZE CONCERNS. STATES UNDERSTANDING. SAFETY MEASURES IN PLACE. CALL LIGHT WITHIN REACH.
[2017-11-17 00:25] VITALS: BP 133/76
--- NOTE | 2017-11-17 00:48 | NUR ---
PT UP TO VOID AT THIS TIME 175ML; AMBULATES WITH ASSIST. CONTINUING STRICT I&O. CPAP AT BEDSIDE, HOWEVER PT DECLINES IT STATING THAT SHE JUST WANTS TO WEAR THE OXYGEN WHILE SHE SLEEPS. OXYGEN VIA NC IN PLACE AT 1L. DAUGHTER REMAINS AT BEDSIDE. NO FURTHER REQUESTS AT THIS TIME. SAFETY MEASURES IN PLACE. CALL LIGHT WITHIN REACH.
--- NOTE | 2017-11-17 04:13 | NUR ---
PT UP TO BATHROOM PRN AND DAUGHTER ASSISTS HER. HAS HAD NO COMPLAINTS THROUGHOUT THE NIGHT; HAS NOT USED CALL LIGHT. DENIES PAIN. RESPIRATIONS EVEN AND UNLABORED. SAFETY MEAURES IN PLACE. CALL LIGHT WITHIN REACH.
[2017-11-17 05:21] LABS: HEMATOCRIT 31.5 % (37.0-47.0); HEMOGLOBIN 9.8 g/dl (12.0-16.0); IMMATURE GRANULOCYTES 0.2 % (0.0-1.0); MEAN CORPUSCULAR HGB 27.7 pG CALC (26.0-32.0); MEAN CORPUSCULAR HGB CONC 31.1 g/L CALC (32.0-36.0); NEUT# 3.75 thou/uL (2.00-7.15); RED BLOOD COUNT 3.54 mill/uL (4.20-5.60); RED CELL DISTRI WIDTH 14.8 % (11.5-15.5)
[2017-11-17 05:30] VITALS: BP 131/78
[2017-11-17 05:41] LABS: ANION GAP 10 (6-22 (CALC)); BUN 23 mg/dL (8-23); BUN/CREATININE RATIO 31 (12-20 (CALC)); CALCIUM 9.1 mg/dL (8.4-10.2); CARBON DIOXIDE 34 mmol/l (22-30); CHLORIDE 96 mmol/l (95-108); CREATININE 0.7 mg/dL (0.5-1.0); GFR > 60 ML/MIN (>=60 (CALC)); GFR FOR AFR.AMER. > 60 ML/MIN (>=60 (CALC)); GLUCOSE 137 mg/dL (82-115); POTASSIUM 3.8 mmol/l (3.5-5.1); SODIUM 137 mmol/l (137-146)
--- NOTE | 2017-11-17 07:00 | NUR ---
SHIFT CHANGE REPORT FROM SILVER RIOS RESTING IN BED, BREATHING SHALLOW, TELE MONITOR IN PLACE, NO C/O DISCOMFORT, CALL FERNANDEZ IN REACH.
[2017-11-17 08:56] VITALS: BP 123/68
[2017-11-17 09:51] LABS: INTERNATIONAL NORMALIZED RATIO 2.8 RATIO (0.7-1.3); PROTHROMBIN TIME 32.2 SECONDS (9.0-12.5)
[2017-11-17] MEDS ORDERED: BUMETANIDE1 MG PO (11:02)
[2017-11-17 11:05] VITALS: BP 134/74
--- NOTE | 2017-11-17 13:26 | NUR ---
Discharge instructions given. Patient verbalizes understanding of same. Discharged in fair condition via Wheelchair to Home with family. All belongings sent with pt.
== END 2017-11-17 13:26 | DRG 291 ==
LOC: ED 13:11 → ED-I 16:56 → ED 17:32 → MS2 17:33
PROVIDERS: Emergency Medicine; Internal Medicine; Nurse Practitioner Family; ADMIT Internal Medicine; ATTEND Internal Medicine
DX: I11.0 Hypertensive heart disease with heart failure (principal); G93.40 Encephalopathy, unspecified; R18.8 Other ascites; D69.6 Thrombocytopenia, unspecified; E83.42 Hypomagnesemia; E66.01 Morbid (severe) obesity due to excess calories; I48.2 Chronic atrial fibrillation; G25.81 Restless legs syndrome; Z68.41 Body mass index [BMI] 40.0-44.9, adult; E11.9 Type 2 diabetes mellitus without complications; I50.33 Acute on chronic diastolic (congestive) heart failure; E78.5 Hyperlipidemia, unspecified; F32.9 Major depressive disorder, single episode, unspecified; F41.9 Anxiety disorder, unspecified; G40.909 Epilepsy, unspecified, not intractable, without status epilepticus; I25.10 Atherosclerotic heart disease of native coronary artery without angina pectoris; G47.33 Obstructive sleep apnea (adult) (pediatric); G89.4 Chronic pain syndrome; J45.909 Unspecified asthma, uncomplicated; F03.90 Unspecified dementia, unspecified severity, without behavioral disturbance, psychotic disturbance, mood disturbance, and anxiety; K21.9 Gastro-esophageal reflux disease without esophagitis; Z95.1 Presence of aortocoronary bypass graft; Z95.0 Presence of cardiac pacemaker; Z79.01 Long term (current) use of anticoagulants; Z79.4 Long term (current) use of insulin
CPT/HCPCS: G0378

== ENCOUNTER 2020-02-25 16:20 | Inpatient (IN) | payer MEDICARE ==
[~2020-02-25] VITALS: Ht 162.6 cm; Wt 99.5 kg
[~2020-02-25 16:20] MED LIST changes: +BUMETANIDE1 MG PO; +KEPPRA750 M2 PO; +KLOR-CON 1010 MEQ PO; +METOLAZONE2.5 MG PO; +ROBITUSSIN200 MG/10 PO
--- NOTE | 2020-02-25 16:23 | NUR ---
PT TO ROOM VIA WC FOR TRIAGE
--- NOTE | 2020-02-25 16:45 | NUR ---
PT ASSESSED. [place]IN[place] SPEAKING ONLY. DAUGHTER AT BEDSIDE TO INTERPRET. PT REPORTS SHORT OF BREATH AND CHEST PAIN. CHANGED TO GOWN. MONITORS APPLIED. AO X 3. SKIN PINK WARM AND DRY. BREATH SOUNDS DIMINISHED BILAT. PEDAL EDEMA BILAT
--- NOTE | 2020-02-25 16:48 | NUR ---
LASIX GIVEN AND FEMALE EXTERNAL CATH PLACED
[2020-02-25 17:07] LABS: HEMATOCRIT 36.7 % (37.0-47.0); HEMOGLOBIN 11.1 g/dl (12.0-16.0); IMMATURE GRANULOCYTES 0.5 % (0.0-5.0); MEAN CELL VOLUME 97.6 fL CALC (80.0-100.0); MEAN CORPUSCULAR HGB 29.5 pG CALC (26.0-32.0); MEAN CORPUSCULAR HGB CONC 30.2 g/dL CAL (32.0-36.0); NEUT# 4.66 thou/uL (2.00-7.15); RED BLOOD COUNT 3.76 mill/uL (4.20-5.60); RED CELL DISTRI WIDTH 14.3 % (11.5-15.5)
[2020-02-25 17:25] LABS: PROTHROMBIN TIME 20.2 SECONDS (9.0-12.5)
[2020-02-25 17:27] LABS: POTASSIUM 4.3 mmol/l (3.5-5.1)
--- NOTE | 2020-02-25 17:30 | NUR ---
SC RESTING ON STRETCHER AWAITING RESULTS
[2020-02-25] MEDS ORDERED: ROPINIROLE0.5 MG PO (17:55)
[2020-02-25] MEDS ORDERED: LEVEMIR100 UNIT/M SC (17:56)
[2020-02-25 17:58] LABS: TSH, 3RD GENERATION 0.73 uIU/mL (0.47 - 4.68)
[2020-02-25] MEDS ORDERED: CARTIA XT180 MG PO (17:58)
[2020-02-25] MEDS ORDERED: LEVETIRACETAM500 M1 PO (18:05)
[2020-02-25] MEDS ORDERED: SERTRALINE50 MG PO (18:07)
[2020-02-25] MEDS ORDERED: ALLEGRA60 MG PO (18:12)
[2020-02-25] MEDS ORDERED: AMITIZA8 MCG PO (18:13)
[2020-02-25] MEDS ORDERED: BUMEX1 M1 PO (18:14)
[2020-02-25] MEDS ORDERED: CARDIZEM CD240 MG PO (18:14)
[2020-02-25] MEDS ORDERED: CLONAZEPAM1 MG PO (18:15)
[2020-02-25] MEDS ORDERED: TRULICITY0.75 MG/0. SC (18:17)
[2020-02-25] MEDS ORDERED: IRON45 MG PO (18:18)
[2020-02-25] MEDS ORDERED: MAG OXIDE400 MG PO (18:19)
[2020-02-25] MEDS ORDERED: CAROSPIR25 MG/5 ML PO (18:20)
--- NOTE | 2020-02-25 18:26 | NUR ---
REPORT GIVEN TO GABRIEL GALARZAMETALS SALES REPRESENTATIVE
--- NOTE | 2020-02-25 18:40 | NUR ---
TELEMETRY IN PLACE FOR TRANSPORT
--- NOTE | 2020-02-25 18:40 | NUR ---
PT TAKEN VIA STRETCHER TO MED SURG
--- NOTE | 2020-02-25 18:45 | NUR ---
PT. ARRIVED TO THE FLOOR AND SETTLED IN BY 2 NURSES VIA STRETCHER AND PT. ORIENTED TO CALL LIGHT AND ROOM.
[2020-02-25 20:30] VITALS: BP 130/50
--- NOTE | 2020-02-25 20:30 | NUR ---
- AMDISSION ASSESSMENT COMPLETED. PT. IS A/A/O X3. PT. IS ABLE TO GIVE SOME PMH, WILL VERIFY OTHER HX WITH DAUGHTER AND OBTAIN FROM PREVIOUS VISITS. PT. IS INCONTINENT OF URINE AND PURE WIC APPLIED; UA OBTAINED THROUGH THIS AND LINENS CHANGED AT THIS TIME. PT. DENIES ANY CP AT THIS TIME, BUT REPORTS SHE HAD PALPATATIONS STARTING A FEW DAYS AGO AND LAST ONSET WAS YESTERDAY, WILL NOTIFY PROVIDER. PT. IS UNSURE OF WHICH MEDS SHE TAKES AT NIGHT, AND REPORTS THAT DAUGHTER WILL KNOW, WILL SPEAK WITH HER SHORTLY. UNABLE TO OBTAIN B/P THROUGH VS MACHINE AND MANUAL OBTAINED 130/50 AT THIS TIME. TELEMETRY IN PLACE AND HR IS 100-110'S. O2 INFUSING PER NC PER ORDER. PT. DOES REPORT X4 DAYS OF SOB AND NON-PRODUCTIVE COUGH WELL NOTICED WT GAIN R/T SWELLING AND DECREASE IN ACTIVITY. BRUISES NOTED TO LEFT POSTERIOR SHOULDER AND PT. DENIES ANY FALLS, BUT DOES REPORT DIZZINESS AND UNSTEADINESS POST CATARACT SURGERY LAST YEAR AND REPORTS USING A WALKER AT HOME AND REPORTS. INSTRCUTED MANAGER CORPORATE STRATEGY LIGHT USE AND POC WELL ORIENTED TO ROOM; VERBALIZES UNDERSTANDING.
--- NOTE | 2020-02-25 20:55 | NUR ---
2044- SPOKE WITH DAUGHTER, GORAN, AND VERIFIED WHICH MEDS SHE NEEDS TONIGHT WELL VERFIEIED A FEW OF HER PMH INFORMATION. 2054- SPOKE WITH DR. ARMENTA AND NOTIFIED HIM OF PT. REPORTING PALPATATIONS PREVIOUSLY WITH LAST ONSET BEING YESTERDAY. ALSO NOTIFIED HIM OF NEEDS FOR MEDICATIONS TONIGHT. WELL INCREASED HR IN THE 100-110'S WITH MANUAL B/P 130/50. NEW ORDERS RECEIVED AND TO BE CARRIED OUT.
[2020-02-25 21:31] LABS: URINE BILIRUBIN - DIPSTICK NEGATIVE (NEGATIVE); URINE BLOOD DIPSTICK NEGATIVE (NEGATIVE); URINE COLOR YELLOW; URINE GLUCOSE - DIPSTICK NEGATIVE (NEGATIVE); URINE KETONE NEGATIVE (NEGATIVE); URINE LEUK ESTERASE NEGATIVE (NEGATIVE); URINE NITRITE - DIPSTICK NEGATIVE (Negative); URINE PROTEIN - DIPSTICK NEGATIVE (NEG-TRACE); URINE SPECIFIC GRAVITY 1.015; URINE UROBILINOGEN - DIPSTICK 0.2 E.U./dL (0.2)
--- NOTE | 2020-02-25 23:35 | NUR ---
PT. RESTING IN BED WITH EYES CLOSED; NO DISTRESS NOTED; WILL CONTINUE TO MONITOR. BED ALARM ON.
[2020-02-26] VITALS (7 sets, daily range): BP systolic 90–128; BP diastolic 45–80
--- NOTE | 2020-02-26 02:02 | NUR ---
PT. RESTING IN BED WITH EYES CLOSED; NO DISTRESS NOTED.
--- NOTE | 2020-02-26 04:39 | NUR ---
PT. C/O ADAMSON AND MEDICATED WITH ORDERED PRN TYLENOL; WILL REASSESS.
[2020-02-26 05:11] LABS: INTERNATIONAL NORMALIZED RATIO 1.9 RATIO (0.7-1.3); PROTHROMBIN TIME 18.9 SECONDS (9.0-12.5)
--- NOTE | 2020-02-26 06:29 | NUR ---
SPOKE WITH DAUGHTER, GORAN, AND NOTIFIED HER OF NEEDS OF 3 HOME MEDICATIONS ORDERED THAT THE HOSPITAL DOES NOT CARRY. FAMILY WILL BRING THEM IN TODAY.
--- NOTE | 2020-02-26 07:00 | NUR ---
REPORT RECEIVED FROM MICHELL DC;PT APPEARS TO BE SLEEPING IN SEMI FOWLERS POSITION;NO S/S OF DISTRESS NOTED;RESPIRATIONS APPEAR EVEN AND UNLABORED ON O2 @ 2L VIA NC;TELE MONITORING IN PLACE;PUREWICK CATHETER RUNNING WITH EASE;ALL SAFETY PRECAUTIONS REMAIN IN PLACE WITH BED IN THE LOWEST POSITION AND BED ALARM ON FOR SAFETY;CALL LIGHT IN REACH;WILL CONTINUE TO MONITOR
--- NOTE | 2020-02-26 08:00 | NUR ---
PT RESTING IN SEMI FOWLERS POSITION,A&O X3;VS OBTAINED AND ASSESSMENT COMPLETED;PT IS NOTED TO BE [place] SPEAKING ONLY,TRANSLATION PROVIDED BY BISHOP MILAN;PT DENIES ANY CURRENT PAIN BUT DOES REPORT GENERALIZED BLE WEAKNESS WITH AMBULATION,PAIN SCALE AND REPORTING EDUCATED;RESPIRATIONS EVEN AND UNLABORED ON O2 @ 2L VIA NC,DIMINISHED LUNG SOUNDS;NON-PRODUCTIVE COUGH AT TIMES;ABDOMEN SOFT ON PALPATION AND ACTIVE IN ALL 4 QUADRANTS;PUREWICK CATHETER PATENT DRAINING CLEAR/YELLOW URINE WITH EASE;WEAK PEDAL PULSES;GENERALIZED EDEMA NOTED THROUGHOUT BODY;#18G TO RAC FLUSHED AND PATENT,SITE APPEARS HEALTHY;TELE MONITORING IN PLACE;ACCUCHECK 97, NO COVERAGE NEEDED AT THIS TIME;SEIZURE PRECAUTIONS NOTED TO BE IN PLACE;PT DENIES ANY ADDITIONAL NEEDS AT THIS TIME AND IS ENCOURAGED TO CALL FOR ASSISTANCE IF NEEDED;FALL PRECAUTIONS IN PLACE WITH BED IN THE LOWEST POSITION AND BED ALARM ON FOR SAFETY;PT IS BEING CURRENTLY TESTED FOR [id number],DOOR TO REMAIN CLOSED AT ALL TIMES UNTIL RESULTS ARE RECEIVED;CALL LIGHT IN REACH;WILL CONTINUE TO MONITOR
--- NOTE | 2020-02-26 10:55 | NUR ---
CASE MANAGEMENT AT BEDSIDE DISCUSSING DISCHARGE PLANNING WITH PT.
--- NOTE | 2020-02-26 11:00 | NUR ---
LAB AT BEDSIDE
--- NOTE | 2020-02-26 11:20 | NUR ---
AT BEDSIDE DISCUSSING POC WITH PT, TRANSLATION PROVIDED BY BISHOP MILAN.
--- NOTE | 2020-02-26 12:00 | NUR ---
PT RESTING IN SEMI FOWLERS POSITION;RESPIRATIONS EVEN AND UNLABORED ON O2 @ 2L;PT DENIES ANY CURRENT PAIN OR NEEDS;TELE MONITORING IN PLACE;ACCUCHECK 156,PT WAS COVERED WITH SLIDING SCALE NOVOLOG PER ORDER;ASSESSMENT REMAINS UNCHANGED AT THIS TIME;ENCOURAGED TO CALL FOR ASSISTANCE IF NEEDED;FALL PRECAUTIONS REMAIN IN PLACE WITH BED ALARM ON FOR SAFETY;CALL LIGHT IN REACH;WILL CONTINUE TO MONITOR
--- NOTE | 2020-02-26 15:24 | NUR ---
PHYSICAL THERAPY AT BEDSIDE
--- NOTE | 2020-02-26 15:30 | NUR ---
PT RESTING IN SEMI FOWLERS POSITION;RESPIRATIONS EVEN AND UNLABORED ON O2 @ 2L VIA NC;PT DENIES ANY CURRENT PAIN OR DISCOMFORTS;TELE MONITORING IN PLACE;IV SITE PATENT;PUREWICK RUNNING WITH EASE;ALL SAFETY PRECAUTIONS REINFORCED WITH BED IN THE LOWEST POSITION AND CALL LIGHT IN REACH;WILL CONTINUE TO MONITOR
--- NOTE | 2020-02-26 15:46 | NUR ---
THIS PT WENT TO SEE THE PATIENT FOR PHYSICAL THERAPY EVALUATION. THIS PT REQUESTED FOR A CONSUMER INSIGHT ANALYST, HOWEVER, THERE IS NO AVAILABLE SIZE MIXER WHO CAN ASSIST THIS PT TO OBTAIN PERTINENT INFORMATION AND PERFORM ACCURATE AND SAFE ASSESSMENT.
--- NOTE | 2020-02-26 20:05 | NUR ---
PATIENT SITTING UP IN BED TALKING ON THE PHONE. DAUGHTER AT BEDSIDE. PATIENT IS CITIZEN OF [place] SPEAKING ONLY DAUGHTER ABLE TO TRANSLATE. TELE MONITOR IN PLACE. IV SITE TO LAC INTACT AND HEALTHY AT THIS TIME. O2 VIA NASAL CANNULA IN PLACE. PUREWICK IN PLACE-DRAINING YELLOW URINE. GENERALIZED EDEMA NOTED. PATIENT ON SEIZURE PRECAUTIONS WITH SIDERAILS PADDED. SAFETY PRECAUTIONS REINFORCED. CALL LIGHT IN REACH. WILL CONT TO MONITOR.
--- NOTE | 2020-02-26 23:27 | NUR ---
PATIENT RESTING IN BED WITH HOB ELEVATED AND O2 VIA NASAL CANNULA IN PLACE. DAUGHTER RESTING IN RECLINER AT BEDSIDE. TELE MONITOR IN PLACE. CALL LIGHT IN REACH. WILL CONT TO MONITOR.
[2020-02-27] VITALS (7 sets, daily range): BP systolic 89–122; BP diastolic 42–75
--- NOTE | 2020-02-27 04:37 | NUR ---
PATIENT WITH ONLY SMALL AMT OF URINE IN PUREWICK CANISTER. PATIENT IS MAX ASSIST TO BSC-VOIDED 100CC OF JOSE URINE. PATIENT WITH MULTIPLE BRUISED AREAS TO BACK-DAUGHTER STATES FROM GETTING HER UP AT NIGHT TO VOID. MAX ASSIST BACK TO BED. PATIENT WITH O2 VIA NASAL CANNULA IN PLACE. STILL WITH GENERALIZED SWELLING NOTED. TELE MONITOR IN PLACE. DAUGHTER REMAINS AT BEDSIDE. SIDERAILS PADDED FOR SEIZURE PRECAUTIONS. CALL LIGHT IN REACH. WILL CONT TO MONITOR.
--- NOTE | 2020-02-27 05:01 | NUR ---
PATIENT RESTING IN BED-PATIENT IS UNABLE TO TOLERATE THE PUREWICK CATH. #16 NICARAGUAN INSERTED WITHOUT ANY DIFFICULTY DRAINING JOSE URINE. DAUGHTER AT BEDSIDE. TELE MONITOR IN PLACE. O2 VIA NASAL CANNULA IN PLACE. PATIENT STATES THAT SHE FEELS MORE COMFORTABLE WITH OROURKE CATH IN PLACE. CALL LIGHT IN REACH. WILL CONT TO MONITOR.
--- NOTE | 2020-02-27 07:10 | NUR ---
change of shift report received from marli campo. pt in room with daughter in attendant. pt denies pain or discomfor. trace edema noted on bilateral ankles. pt is alert and oriented x 3. administrative underwriter will continue to monitor
[2020-02-27 08:51] LABS: CREATININE 2.1 mg/dL (0.5-1.0); MAGNESIUM 2.3 mg/dL (1.6-2.3); POTASSIUM 4.1 mmol/l (3.5-5.1)
[2020-02-27 09:01] LABS: INTERNATIONAL NORMALIZED RATIO 1.9 RATIO (0.7-1.3); PROTHROMBIN TIME 19.4 SECONDS (9.0-12.5)
--- NOTE | 2020-02-27 12:00 | NUR ---
PT C/O CONSTIPATION WARM PRUNE JUICE ADMINISTERED. MANUEL LEOS NOTIFIED. PCG NOTIFIED. PT AGREEABLE TO TAKING MEDICATION FOR CONSTIPATION. INCENTIVE SPIROMETER GIVEN TO PT TO EXERCISE LUNGS. PT ABLE TO DEMONSTRATE HOW TO USE THE INCENTIVE SPIROMETER. AUTOMOBILE UPHOLSTERER APPRENTICE WILL CONTINUE TO MONITOR
--- NOTE | 2020-02-27 14:08 | NUR ---
PASTORA FROM ER CALLED RE: PT HEART RATE TO 120'S. CHECKED ON PT SHE JUST WWOKE UP AND FAMILY IS FEEDING HER. WHEN CHECKED WITH ER AGAIN HRT RATE MAINTAINED 110'S TO 120'S. SPOKE WITH BEN GALARZA AND WILL GET AN EKG TO CHECK ON PT.
--- NOTE | 2020-02-27 14:40 | NUR ---
EKG RESULT UNREMARKABLE. JOURNALISM PROFESSOR WILL NOTIFY DR RAMIREZ
--- NOTE | 2020-02-27 14:43 | NUR ---
SWEET POTATO DISINTEGRATOR NOTIFIED BY PASTORA IN ER DEPT THAT PT'S HEART RATEGREATER THAN 110 AND JUMPING TO THE 120'S. DOCTOR NELY NOTIFIED. NEW ORDER FOR COREG 6.25MG X ONE TIME DOSE.
--- NOTE | 2020-02-27 15:05 | NUR ---
PT TRANSPORTED TO X-RAY DEPARTMENT AT THIS TIME
--- NOTE | 2020-02-27 15:30 | NUR ---
PT BACK FROM XRAY. PT DENIES ANY DISCOMFORT. PER PASTORA IN ER DEPARTMENT, PT IS PACING AT 60. HAT MODEL WILL CONTINUE TO MONITOR
--- NOTE | 2020-02-27 16:47 | NUR ---
NOTIFIED BY PASTORA IN ER THAT PT'S HEART RATE BACK UP TO THE 120'S PT ASSESSED. PT DENIES PALPITATION. PT DENIES PAIN. RESPIRATION EVEN AND UNLABORED. PT CONTINUES ON 02 AT 3LPM VIA NASAL CANULA. PT IS ASYMPTOMATIC. HEART RATE ASSESSED WITH HEART RATE RANGING BETWEN 96 AND 114. SAFETY SITTER WILL CONTINUE TO MONITOR. PASTORA UPDATED ON PT'S STATUS.
--- NOTE | 2020-02-27 17:50 | NUR ---
PER PASTORA IN ER, PT'S HEART RATE BACK DOWN TO 60. WRAPPER OFF WILL CONTINUE TO MONITOR
--- NOTE | 2020-02-27 19:30 | NUR ---
PATIENT RESTING IN BED AT THIS TIME WITH O2 VIA NASAL CANNULA IN PLACE. DAUGHTER AT BEDSIDE. PATIENT IS AMHAR[place] SPEAKING ONLY. ALERT AND ORIENTED AT THIS TIME. DAUGHTER STATES THAT SHE HAS BEEN CONFUSED AT TIMES TODAY. TELE MONITOR IN PLACE. OROURKE PATENT AND DRAINING YELLOW URINE. CONT TO HAVE GENERALIZED EDEMA. LARGE BRUISED AREA TO BACK AND SHOULDER UNCHANGED. SALINE LOCK TO AC INTACT. SAFETY PRECAUTIONS REINFORCED. CALL LIGHT IN REACH. DAUGHTER WILL BE STAYING AT BEDSIDE FOR TONIGHT. WILL CONT TO MONITOR.
--- NOTE | 2020-02-27 22:00 | NUR ---
PATIENT RESTING IN BED-RECIEVED COMPLETE BED BATH AND LINEN CHANGE. OROURKE CATH CARE DONE WITH SOAP AND WATER, TURNED AND REPOSITIONED ON HER SIDE. PATIENT NEEDS MUCH ENCOURAGEMENT TO ASSIST IN HER CARE. DAUGHTER REMAINS AT BEDSIDE.BS-117-NO NOVVALOG COVERAGE REQUIRED. PROVIDED WITH JELLO FOR HS SNACK. SIDERAILS PADDED FOR SEIZURE PRECAUTIONS. SAFETY PRECAUTIONS REINFORCED. CALL LIGHT IN REACH. WILL CONT TO MPONITOR.
--- NOTE | 2020-02-28 01:05 | NUR ---
RESTING IN BE WATCHING TV-PROVIDED WITH CARTON OF MILK FOR INDIGESTION PER PATIENT REQUEST. TELE MONITOR IN PLACE. IVF PATENT AND INFUSING VIA LAC SITE. SAFETY PRECAUTIONS REINFORCED. CALL LIGHT IN REACH.
[2020-02-28 03:50] VITALS: BP 124/67
--- NOTE | 2020-02-28 04:00 | NUR ---
PATIENT REPOSITIONED IN BED. OROURKE CATH PATENT AND DRAINING YELLOW URINE. TELE MONITOR IN PLACE. O2 VIA NASAL CANNUALA IN PLACE. DAUGHTER AT BEDSIDE RESTING ON COT PROVIDED. CALL LIGHT IN REACH. WILL CONT TO MONITOR.
[2020-02-28 04:55] LABS: HEMATOCRIT 33.9 % (37.0-47.0); HEMOGLOBIN 10.4 g/dl (12.0-16.0); MEAN CELL VOLUME 96.9 fL CALC (80.0-100.0); MEAN CORPUSCULAR HGB 29.7 pG CALC (26.0-32.0); MEAN CORPUSCULAR HGB CONC 30.7 g/dL CAL (32.0-36.0); RED BLOOD COUNT 3.5 mill/uL (4.20-5.60); RED CELL DISTRI WIDTH 14.4 % (11.5-15.5)
[2020-02-28 05:11] LABS: ALBUMIN 3.6 g/dL (3.2-5.0); CREATININE 1.9 mg/dL (0.5-1.0); POTASSIUM 3.6 mmol/l (3.5-5.1); TOTAL PROTEIN 6.6 g/dL (6.3-8.2)
[2020-02-28 05:23] LABS: INTERNATIONAL NORMALIZED RATIO 2.1 RATIO (0.7-1.3); PROTHROMBIN TIME 21.4 SECONDS (9.0-12.5)
--- NOTE | 2020-02-28 07:10 | NUR ---
CHANGE OF SHIFT REPORT RECEIVED FROM MICHELL BOLDEN. PT SLEEPING ON RIGHT LATERAL SIDE. HOB AT 30 DEGREES. RESPIRATION EVEN AND UNLABORED. PRODUCT OPERATIONS ASSOCIATE WILL CONTINUE TO MONITOR.
[2020-02-28 07:25] VITALS: BP 118/51
[2020-02-28 10:34] VITALS: BP 112/69
--- NOTE | 2020-02-28 11:47 | NUR ---
PT ASSISTED OUT OF BED WITH NELY LIFT. PT SITTING UP IN RECLINER. PT DENIES PAIN OR DISCOMFORT. PCG IN ATTENDANT.
[2020-02-28 16:06] VITALS: BP 114/64
--- NOTE | 2020-02-28 17:00 | NUR ---
PT SITTING UP IN CHAIR. PT ALERT AND ORIENTED X 3. PT DENIES PAIN OR DISCOMFORT. PT STATES THAT SHE IS FEELING MUCH BETTER TODAY. PT HAD A MODERATE SOFT, BOWEL MOVEMENT THIS AM. STOOL WAS GREEN IN COLOR. PCG IN ATTENDANT. PRODUCT ANALYST WILL CONTINUE TO MONITOR
[2020-02-28 19:11] VITALS: BP 121/70
--- NOTE | 2020-02-28 19:35 | NUR ---
PATIENT RESTING IN BED AT THIS TIME TALKING ON THE PHONE WITH O2 VIA NASAL CANNULA IN PLACE. PATIENT IS ALERT AND ORIENTEDX3. NICARAGUAN SPEAKING ONLY. TELE MONITOR IN PLACE. OROURKE CATH PATENT AND DRAINING YELLOW URINE. DAUGHTER AT BEDSIDE TO TRANSLATE-STATES THAT SHE HAS HAD BETTER DAY TODAY. SAFETY PRECAUTIONS IN PLACE. SIDERAILS PADDED FOR SEIZURE PRECAUTIONS. CALL LIGHT IN REACH. WILL CONT TO MONITOR.
--- NOTE | 2020-02-28 20:33 | NUR ---
PATIENT RESTING IN RTW-DZNP-ZENFR WAS 70-NO COVERAGE NEEDED. HS SNACK PROVIDED. DAUGHTER WILL BE STAYING THE NIGHT WITH PATIENT ON COT PROVIDED. NO NEEDS OR CONCERNS AT THIS TIME. SAFETY PRECAUTIONS REINOFRCED. CALL LIGHT IN REACH. WILL CONT TO MONITOR.
[2020-02-29] VITALS: BP 123/71
--- NOTE | 2020-02-29 00:50 | NUR ---
PATIENT APPEARS SLEEPING IN BED WITH HOB SLIGHTLY ELEVATED AND EYES CLOSED WITH O2 VIA NASAL CANNULA IN PLACE. RESPS ARE EVEN AND UNLABORED. DAUGHTER RESTING ON COT PROVIDED. TELE MONITOR IN PLACE. OROURKE PATENT AND DRAINING YELLOW URINE. CALL LIGHT IN REACH. WILL CONT TO MONITOR.
[2020-02-29 03:55] VITALS: BP 129/69
--- NOTE | 2020-02-29 04:21 | NUR ---
PATIENT RESTING IN BED AT THIS TIME WITH DAUGHTER AT BEDSIDE AND O2 VIA NASAL CANNULA IN PLACE. LAB WORK DRAWN. TELE MONITOR IN PLACE. OROURKE PATENT AND DRAINING YELLOW URINE. SAFETY PRECAUTIONS REINFORCED. CALL LIGHT IN REACH. WILL CONT TO MONITOR.
[2020-02-29 05:07] LABS: INTERNATIONAL NORMALIZED RATIO 2.5 RATIO (0.7-1.3); PROTHROMBIN TIME 25.2 SECONDS (9.0-12.5)
[2020-02-29 05:11] LABS: CREATININE 1.3 mg/dL (0.5-1.0); POTASSIUM 3.7 mmol/l (3.5-5.1)
[2020-02-29 07:46] VITALS: BP 131/74
--- NOTE | 2020-02-29 08:12 | NUR ---
PT SEEN AWAKE, ALERT, ORIENTED X 3. LUNGS CLEAR BUT DIMINISHED, 2 LPM NC. PT'S DAUGHTER AT BEDSIDE. SKIN WITH BRUISES TO BACK, DAUGHTER STATES THAT THEY ARE FROM HER DAD'S ATTEMPTS TO HELP STEADY HER, PLUS COUMADIN. MINIMAL EDEMA NOTED BLE AND GENERALIZED. BM YESTERDAY, FIRST IN 3 DAYS.
[2020-02-29 10:50] VITALS: BP 102/58
[2020-02-29 13:19] LABS: HEMATOCRIT 37.2 % (37.0-47.0); HEMOGLOBIN 11.2 g/dl (12.0-16.0); IMMATURE GRANULOCYTES 0.5 % (0.0-5.0); MEAN CELL VOLUME 99.2 fL CALC (80.0-100.0); MEAN CORPUSCULAR HGB 29.9 pG CALC (26.0-32.0); MEAN CORPUSCULAR HGB CONC 30.1 g/dL CAL (32.0-36.0); NEUT# 6.69 thou/uL (2.00-7.15); RED BLOOD COUNT 3.75 mill/uL (4.20-5.60); RED CELL DISTRI WIDTH 14.6 % (11.5-15.5)
--- NOTE | 2020-02-29 13:45 | NUR ---
PT WITH URINE IN TUBING SLIGHTLY BLOODY, UNKNOWN CAUSE. PT RESTS NOW, WILL WORK WITH PHYSICAL THERAPY AFTER RESTING.
[2020-02-29 15:37] VITALS: BP 122/74
--- NOTE | 2020-02-29 16:10 | NUR ---
PT ASSISTED INTO CHAIR BY PHYSICAL THERAPY. PT PROVIDED MED HEADACHE PAIN. PT AND DAUGHTER UPDATED ON PLAN TO DISCHARGE TOMORROW INSTEAD OF TODAY.
--- NOTE | 2020-02-29 16:20 | NUR ---
PT note Patient is seen for evaluation. Family and patient prefer home health. She would benefit from PT and OT for pacing, energy conservation and funcitonal training as she is weak with cardiac precautions. She is Max assist for bed to chair transfers on eval. She is ok for home health due to her supportive family
[2020-02-29 18:53] VITALS: BP 131/62
--- NOTE | 2020-02-29 19:00 | NUR ---
RECEIVED REPORT FROM NURSE ROB PATIENT RESTING IN BED, DAUGHTER IN ROOM NO DISCOMFORTS NOTED AT THIS TIME, CALL LIGHT WITHIN REACH.
--- NOTE | 2020-02-29 21:00 | NUR ---
PATIENT ALERT ORIENTED ABLE TO MAKE NEEDS KNOWN, [place] SPEAKING ONLY DAUGHTER AT BEDSIDE, TRANSFERRED PATIENT FROM BED TO [facility] PATIENT UNABLE TO BEAR WEIGHT AND NEEDS MAX ASSISTANCE, PATIENT HAS SALINE LOCK ON RAC G18 SALINE LOCK, REMAINS ON TELE PACED 70, LBM 5/10 HAS A INDWELLING OROURKE CATHETER DRAINING JOSE COLORED URINE, ON SEIZURE PRECAUTION CALL LIGHT AT REACH.
--- NOTE | 2020-02-29 23:00 | NUR ---
PERICARE AND GIVEN AT THIS TIME.
[2020-03-01 00:04] VITALS: BP 119/68
[2020-03-01 03:11] VITALS: BP 138/81
--- NOTE | 2020-03-01 03:58 | NUR ---
PATIENT APPEARS TO BE SLEEPING WITH EYS CLOSED, NO DISCOMFORTS NOTED WITH EVEN UNLABORED BREATHING CALL LIGHT AT REACH.
[2020-03-01 05:11] LABS: HEMATOCRIT 37.7 % (37.0-47.0); HEMOGLOBIN 11.3 g/dl (12.0-16.0); IMMATURE GRANULOCYTES 0.4 % (0.0-5.0); MEAN CELL VOLUME 98.2 fL CALC (80.0-100.0); MEAN CORPUSCULAR HGB 29.4 pG CALC (26.0-32.0); NEUT# 6.23 thou/uL (2.00-7.15); RED BLOOD COUNT 3.84 mill/uL (4.20-5.60); RED CELL DISTRI WIDTH 14.2 % (11.5-15.5)
[2020-03-01 05:31] LABS: CREATININE 1.3 mg/dL (0.5-1.0); POTASSIUM 3.5 mmol/l (3.5-5.1)
[2020-03-01 05:35] LABS: INTERNATIONAL NORMALIZED RATIO 2.9 RATIO (0.7-1.3); PROTHROMBIN TIME 28.8 SECONDS (9.0-12.5)
--- NOTE | 2020-03-01 07:00 | NUR ---
SHIFT CHANGE REPORT, PT AWAKE AND ALERT, C/O DIZZY AT THIS TIME, OJ GIVEN AND DIZZINESS SUSIDED (BLOOD GLUCOSE= 78), DENIES PAIN, OROURKE IN PLACE WITH CLEAR JOSE URINE, BED IN LOWEST POSITION AND CALL FERNANDEZ IN REACH. FAMILY AT BEDSIDE.
[2020-03-01 07:32] VITALS: BP 127/68
--- NOTE | 2020-03-01 10:36 | NUR ---
HAVEN CRANE REMOVED @ 1030, PT TOLERATED PROCEDURE WELL, WILL MONITOR FOR FIRST URINATION.
[2020-03-01 12:00] VITALS: BP 124/75
--- NOTE | 2020-03-01 12:38 | NUR ---
PT URINATED WITHOUT DIFFICULTY.
--- NOTE | 2020-03-01 13:00 | NUR ---
Discharge instructions given. Patient verbalizes understanding of same. Discharged in stable condition via Wheelchair to Home with family. All belongings sent with pt.
== END 2020-03-01 13:23 | disposition home health service (06) | DRG 291 ==
LOC: ED 16:20 → ED-I 16:50 → ED 16:50 → MS2 18:04
PROVIDERS: Family Medicine; Internal Medicine; Nurse Practitioner Family; ADMIT Internal Medicine; ATTEND Internal Medicine
PROC: 0T9B70Z Drainage of Bladder with Drainage Device, Via Natural or Artificial Opening (ICD-10-PCS; principal; 2020-02-27)
DX: I13.0 Hypertensive heart and chronic kidney disease with heart failure and stage 1 through stage 4 chronic kidney disease, or unspecified chronic kidney disease (principal); I50.43 Acute on chronic combined systolic (congestive) and diastolic (congestive) heart failure; I48.20 Chronic atrial fibrillation, unspecified; E11.22 Type 2 diabetes mellitus with diabetic chronic kidney disease; N18.9 Chronic kidney disease, unspecified; I25.10 Atherosclerotic heart disease of native coronary artery without angina pectoris; E78.5 Hyperlipidemia, unspecified; G47.33 Obstructive sleep apnea (adult) (pediatric); I95.2 Hypotension due to drugs; T44.7X5A Adverse effect of beta-adrenoreceptor antagonists, initial encounter; R41.0 Disorientation, unspecified; R31.9 Hematuria, unspecified; G40.909 Epilepsy, unspecified, not intractable, without status epilepticus; G89.4 Chronic pain syndrome; F32.9 Major depressive disorder, single episode, unspecified; Z79.4 Long term (current) use of insulin; Z95.1 Presence of aortocoronary bypass graft; Z95.0 Presence of cardiac pacemaker; Z79.01 Long term (current) use of anticoagulants; Z20.828 Contact with and (suspected) exposure to other viral communicable diseases
CPT/HCPCS: G0378

== ENCOUNTER 2020-03-10 12:15 | Emergency (ER) | payer MEDICARE ==
[~2020-03-10 12:15] MED LIST changes: +ALLEGRA60 MG PO; +BUMEX1 M1 PO; +CARDIZEM CD240 MG PO; +CAROSPIR25 MG/5 ML PO; +CARTIA XT180 MG PO; +CLONAZEPAM1 MG PO; +IRON45 MG PO; +LEVETIRACETAM500 M1 PO; +MAG OXIDE400 MG PO; +ROPINIROLE0.5 MG PO; +SERTRALINE50 MG PO; +TRULICITY0.75 MG/0. SC
[2020-03-10] MEDS ORDERED: GABAPENTIN100 MG PO (12:46)
[2020-03-10] MEDS ORDERED: CLONAZEPAM1 MG PO (12:47)
[2020-03-10] MEDS ORDERED: CARDIZEM60 MG PO (12:48)
[2020-03-10 13:18] LABS: HEMATOCRIT 36.8 % (37.0-47.0); HEMOGLOBIN 11.1 g/dl (12.0-16.0); IMMATURE GRANULOCYTES 0.3 % (0.0-5.0); MEAN CELL VOLUME 97.4 fL CALC (80.0-100.0); MEAN CORPUSCULAR HGB 29.4 pG CALC (26.0-32.0); MEAN CORPUSCULAR HGB CONC 30.2 g/dL CAL (32.0-36.0); NEUT# 5.16 thou/uL (2.00-7.15); RED BLOOD COUNT 3.78 mill/uL (4.20-5.60); RED CELL DISTRI WIDTH 13.6 % (11.5-15.5)
[2020-03-10 14:17] LABS: ALBUMIN 3.9 g/dL (3.2-5.0); CREATININE 1.7 mg/dL (0.5-1.0); POTASSIUM 4.1 mmol/l (3.5-5.1); TOTAL PROTEIN 7.4 g/dL (6.3-8.2)
[2020-03-10 14:31] LABS: BILIRUBIN, TOTAL 0.5 mg/dL (0.0-1.4)
[2020-03-10 14:39] VITALS: BP 168/62
== END 2020-03-10 14:48 | disposition home or self-care (01) ==
LOC: ED 12:15
PROVIDERS: Emergency Medicine
DX: R00.2 Palpitations (principal); E11.65 Type 2 diabetes mellitus with hyperglycemia; I48.91 Unspecified atrial fibrillation; Z95.1 Presence of aortocoronary bypass graft; Z95.0 Presence of cardiac pacemaker; Z79.4 Long term (current) use of insulin

== ENCOUNTER 2020-12-23 15:46 | Inpatient (IN) | payer MEDICARE ==
[~2020-12-23] VITALS: Ht 162.6 cm; Wt 100.0 kg
[~2020-12-23 15:46] MED LIST changes: +CARDIZEM60 MG PO; +GABAPENTIN100 MG PO
--- NOTE | 2020-12-23 15:46 | NUR ---
PT TO ROOM VIA W/C
--- NOTE | 2020-12-23 17:00 | NUR ---
LABS OBTAINED. ADVISED PT/FAMILY OF WAIT TIME FOR TEST RESULTS.
[2020-12-23 17:08] LABS: HEMATOCRIT 35.2 % (37.0-47.0); HEMOGLOBIN 10.8 g/dl (12.0-16.0); IMMATURE GRANULOCYTES 0.4 % (0.0-5.0); MEAN CORPUSCULAR HGB 29.8 pG CALC (26.0-32.0); MEAN CORPUSCULAR HGB CONC 30.7 g/dL CAL (32.0-36.0); NEUT# 7.61 thou/uL (2.00-7.15); RED BLOOD COUNT 3.63 mill/uL (4.20-5.60); RED CELL DISTRI WIDTH 13.4 % (11.5-15.5)
[2020-12-23 17:26] LABS: ALBUMIN 4.2 g/dL (3.2-5.0); BILIRUBIN, TOTAL 0.8 mg/dL (0.0-1.4); POTASSIUM 4.8 mmol/l (3.5-5.1); TOTAL PROTEIN 7.9 g/dL (6.3-8.2)
[2020-12-23 17:33] LABS: CREATININE 5.5 mg/dL (0.5-1.0)
--- NOTE | 2020-12-23 17:33 | NUR ---
PROVIDER ADVISED OF ABNORMAL/CRITICAL CREATININE 5.5
--- NOTE | 2020-12-23 18:51 | NUR ---
FOLER CATH PLACEMENT MD DIRECTED. PT TOLERATED WELL. APPROX 200 ML CLEAR YELLOW URINE TO BSDB. SPECIMEN COLLECTED. STERILE TECHNIQUE MAINTAINED.
[2020-12-23 18:56] LABS: URINE BILIRUBIN - DIPSTICK NEGATIVE (NEGATIVE); URINE BLOOD DIPSTICK NEGATIVE (NEGATIVE); URINE COLOR YELLOW; URINE GLUCOSE - DIPSTICK NEGATIVE (NEGATIVE); URINE KETONE NEGATIVE (NEGATIVE); URINE LEUK ESTERASE NEGATIVE (NEGATIVE); URINE NITRITE - DIPSTICK NEGATIVE (Negative); URINE PROTEIN - DIPSTICK NEGATIVE (NEG-TRACE); URINE UROBILINOGEN - DIPSTICK 0.2 E.U./dL (0.2)
--- NOTE | 2020-12-23 19:30 | NUR ---
RESTING QUIETLY. NAD.
[2020-12-23] MEDS ORDERED: SERTRALINE50 MG PO (20:02)
[2020-12-23] MEDS ORDERED: WARFARIN SODIU2.5 M1 PO (20:10)
[2020-12-23] MEDS ORDERED: REQUIP XL6 MG PO (20:12)
[2020-12-23] MEDS ORDERED: REPAGLINIDE2 MG PO (20:13)
[2020-12-23] MEDS ORDERED: HYDROCODONE/ACE1 T12 PO (20:14)
[2020-12-23] MEDS ORDERED: VITAMIN D31000 UNI1 PO (20:15)
[2020-12-23] MEDS ORDERED: CRESTOR5 MG PO (20:16)
--- NOTE | 2020-12-23 20:31 | NUR ---
NO CHANGE IN EXAM.
--- NOTE | 2020-12-23 21:30 | NUR ---
Admission Note Report Given to: MICHELL CASTELLANO Transported by: Wheelchair X Stretcher Transported with: X Nurse Transporter X Patent IV O2 X Bump Grader Operator Location: ICU X MS2
--- NOTE | 2020-12-23 21:35 | NUR ---
PT ARRIVED TO FLOOR VIA STRETCHER ACCOMPANIED BY ER STAFF. PT ALERT AND ORIENTED X3. NO APPARENT RESPIRATORY DISTRESS NOTED. PT WEAK NOT ABLE TO TRANSFER SELF FROM STRETCHER TO BED, TRANSFERED FROM STRETCHER TO BED VIA SLIDING X4 PERSON ASSIST. PT HAS LARGE AMOUNTS OF BRUISING NOTED TO LOWER ABD, SHE DOES NOT RECALL WHAT FROM. SMALL WOUND NOTED TO LLE, BANDAID REMOVED AND IMAGES OBTAINED, NEW BANDAID APPLIED AFTER BEING CLEANSED WITH NS. OROURKE PATENT DRAINING TO GRAVITY. IV SITE FLUSHED WITH BRISK BLOOD RETURN, IVF INITIATED. NUTRITIONALIST IN PLACE. PT IS CHILEAN SPEAKING ONLY, RICARDO RN TO TRANSLATE. PT ORIENTED TO ROOM AND CALL LIGHT SYSTEM. CALL LIGHT WITHIN REACH. WILL CONTINUE TO MONITOR.
[2020-12-23 21:40] VITALS: BP 113/67
[2020-12-24] VITALS: BP 105/61
--- NOTE | 2020-12-24 00:22 | NUR ---
PT NOTED TO HAVE SOME CONFUSION. CALLING OUT FOR HER FAMILY MEMBERS. PT KEEPS REMOVING AXLE AND FRAME MECHANIC. PT REORIENTED TO PLACE AND TIME BY RICARDO GALARZA. PT NOW RESTING IN BED. WILL CONTINUE TO MONITOR.
[2020-12-24 04:00] VITALS: BP 117/60
--- NOTE | 2020-12-24 04:08 | NUR ---
PT RESTING IN BED WITH EYES CLOSED. NO APPARENT DISTRESS NOTED. RESPIRATIONS EVEN AND UNLABORED. PAPER CONSERVATOR IN PLACE. IVF INFUSING WITHOUT DIFFICULTY. CALL LIGHT WITHIN REACH. WILL CONTINUE TO MONITOR.
[2020-12-24 05:36] LABS: HEMATOCRIT 35.9 % (37.0-47.0); HEMOGLOBIN 10.8 g/dl (12.0-16.0); IMMATURE GRANULOCYTES 0.6 % (0.0-5.0); MEAN CELL VOLUME 98.6 fL CALC (80.0-100.0); MEAN CORPUSCULAR HGB 29.7 pG CALC (26.0-32.0); MEAN CORPUSCULAR HGB CONC 30.1 g/dL CAL (32.0-36.0); NEUT# 7.05 thou/uL (2.00-7.15); RED BLOOD COUNT 3.64 mill/uL (4.20-5.60); RED CELL DISTRI WIDTH 13.4 % (11.5-15.5)
[2020-12-24 06:02] LABS: INTERNATIONAL NORMALIZED RATIO 2.8 RATIO (0.7-1.3); PROTHROMBIN TIME 28.5 SECONDS (9.0-12.5)
[2020-12-24 06:59] LABS: ALBUMIN 3.9 g/dL (3.2-5.0); BILIRUBIN, TOTAL 0.7 mg/dL (0.0-1.4); MAGNESIUM 2.6 mg/dL (1.6-2.3); POTASSIUM 4.6 mmol/l (3.5-5.1); TOTAL PROTEIN 7.3 g/dL (6.3-8.2)
--- NOTE | 2020-12-24 07:00 | NUR ---
SHIFT CHANGE REPORT, PT AWAKE AND ALERT SITTING UP IN RECLINER, CONFUSED, IVF INFUSING, TELE MONITOR IN PLACE, CALL FERNANDEZ IN REACH, BODY ALARM IN PLACE.
[2020-12-24 07:03] LABS: CREATININE 5.2 mg/dL (0.5-1.0)
[2020-12-24 08:03] VITALS: BP 109/51
--- NOTE | 2020-12-24 10:57 | NUR ---
RESTING IN BED AT THIS TIME, DAUGHTER JUST CALLED FOR UPDATE.
[2020-12-24 11:12] VITALS: BP 114/67
[2020-12-24 14:55] VITALS: BP 120/69
--- NOTE | 2020-12-24 16:00 | NUR ---
RESTING IN BED, NO SIGN DISCOMFORT, CALL FERNANDEZ IN REACH
[2020-12-24 19:30] VITALS: BP 120/69
[2020-12-25 00:39] VITALS: BP 98/58
--- NOTE | 2020-12-25 01:46 | NUR ---
PATIENT IS ALERT TO SELF. SRI LANKAN SPEAKING. C/O PAIN THIS EVENING. TYLENOL GIVEN WITH POSITIVE EFFECT. CONTINUES ON TELEMETRY RUNNING IN THE 70S PACED. RESPIRATIONS EASY ON ROOM AIR. SKIN WARM AND DRY. IVF INFUSING AT 80ML/HR. TOLERATING WELL. OROURKE CATHETER IN PLACE AND DRAINING YELLOW URINE TO GRAVITY. BED IN LOW POSITION. FALL PRECAUTIONS MAINTAINED. CALL LIGHT WITHIN REACH.
[2020-12-25 04:42] VITALS: BP 116/83
[2020-12-25 05:23] LABS: HEMOGLOBIN 9.8 g/dl (12.0-16.0); MEAN CELL VOLUME 100.3 fL CALC (80.0-100.0); MEAN CORPUSCULAR HGB 28.9 pG CALC (26.0-32.0); MEAN CORPUSCULAR HGB CONC 28.8 g/dL CAL (32.0-36.0); RED BLOOD COUNT 3.39 mill/uL (4.20-5.60); RED CELL DISTRI WIDTH 13.3 % (11.5-15.5)
[2020-12-25 05:42] LABS: ALBUMIN 3.3 g/dL (3.2-5.0); ANION GAP 15 (6-22 (CALC)); BUN 75 mg/dL (8-23); CARBON DIOXIDE 24 mmol/l (22-30); CHLORIDE 103 mmol/l (95-108); MAGNESIUM 2.5 mg/dL (1.6-2.3); POTASSIUM 4.6 mmol/l (3.5-5.1); SODIUM 137 mmol/l (137-146)
[2020-12-25 05:47] LABS: BUN/CREATININE RATIO 16 (12-20 (CALC)); CREATININE 4.8 mg/dL (0.5-1.0); GFR 9 ML/MIN (>=60 (CALC)); GFR FOR AFR.AMER. 11 ML/MIN (>=60 (CALC))
--- NOTE | 2020-12-25 07:00 | NUR ---
SHIFT CHANGE REPORT, PT AWAKE AND ALERT, NO C/O DISCOMFORT AT THIS TIME, IVF INFUSING, TELE MONITOR IN PLACE, OROURKE CATHETER IN PLACE WITHLIGHT JOSE URINE, [facility]CARE BEING ADMINISTERED BY POWERHOUSE MECHANIC APPRENTICE, WILL CONTINUE TO MONITOR.
[2020-12-25 07:42] VITALS: BP 130/73
[2020-12-25 09:20] LABS: PROTHROMBIN TIME 20.2 SECONDS (9.0-12.5)
[2020-12-25 10:40] VITALS: BP 110/46
--- NOTE | 2020-12-25 12:00 | NUR ---
SITTING UP IN BED HAVING MEAL, NO SIGN DISCOMFORT. DAUGHTER CALLED TO INQUIRE ABOUT CONDITION AND ASKED ABOUT VISITATION, INFORMED OF NEW POLICY IN EFFECT TOMORROW.
[2020-12-25 15:00] VITALS: BP 125/55
--- NOTE | 2020-12-25 16:21 | NUR ---
SLEEPING IN SUPINE POSITION, NO SIGN DISCOMFORT, CALL FERNANDEZ IN REACH.
--- NOTE | 2020-12-25 19:09 | NUR ---
REPORT FROM MONSE GALARZA. ASSUMED PT CARE.
--- NOTE | 2020-12-25 19:53 | NUR ---
PT NOTED SITTING UP IN BED EATING DINNER TRAY, WATCHING TV. NO APPARENT RESPIRATORY DISTRESS NOTED. PT FAROESE SPEAKING ONLY. IV SITE APPEARS HEALTHY WITH IVF INFUSING. MEDICAL HEALTH RESEARCHER IN PLACE. OROURKE PATENT DRAINING TO GRAVITY. CALL LIGHT WITHIN REACH. WILL CONTINUE TO MONITOR.
--- NOTE | 2020-12-25 23:28 | NUR ---
PT RESTING IN BED WITH EYES CLOSED. NO APPARENT DISTRESS NOTED. RESPIRATIONS EVEN AND UNLABORED. MANAGER OF DRILLING IN PLACE. IVF INFUSING WITHOUT DIFFICULTY. CALL LIGHT WITHIN REACH. WILL CONTINUE TO MONITOR.
[2020-12-26 00:19] VITALS: BP 99/55
--- NOTE | 2020-12-26 03:18 | NUR ---
PT RESTING IN BED WITH EYES CLOSED. NO APPARENT DISTRESS NOTED. RESPIRATIONS EVEN AND UNLABORED. SYSTEMS TESTING LABORATORY TECHNICIAN IN PLACE. IVF INFUSING WITHOUT DIFFICULTY. CALL LIGHT WITHIN REACH. WILL CONTINUE TO MONITOR.
[2020-12-26 04:00] VITALS: BP 113/62
[2020-12-26 05:24] LABS: HEMATOCRIT 33.8 % (37.0-47.0); IMMATURE GRANULOCYTES 0.3 % (0.0-5.0); MEAN CELL VOLUME 99.4 fL CALC (80.0-100.0); MEAN CORPUSCULAR HGB 29.4 pG CALC (26.0-32.0); MEAN CORPUSCULAR HGB CONC 29.6 g/dL CAL (32.0-36.0); NEUT# 4.63 thou/uL (2.00-7.15); RED BLOOD COUNT 3.4 mill/uL (4.20-5.60); RED CELL DISTRI WIDTH 13.3 % (11.5-15.5)
[2020-12-26 06:04] LABS: PROTHROMBIN TIME 19.9 SECONDS (9.0-12.5)
[2020-12-26 06:07] LABS: ALBUMIN 3.2 g/dL (3.2-5.0); BILIRUBIN, TOTAL 0.7 mg/dL (0.0-1.4); CREATININE 4.5 mg/dL (0.5-1.0); POTASSIUM 4.4 mmol/l (3.5-5.1); TOTAL PROTEIN 6.4 g/dL (6.3-8.2)
[2020-12-26 07:18] VITALS: BP 104/60
--- NOTE | 2020-12-26 07:18 | NUR ---
PT SITTING IN BED. A&O X2, REORIENTATION NEEDED ON PLACE/SITUATION. PT UNSURE OF WHY SHE IS IN HOSPITAL OR HOW LONG SHE HAS BEEN HERE. REPORTS TO LIVE WITH "DAUGHTER KELSEY". PT ABLE TO FOLLOW COMMANDS. CLEAR BREATH SOUNDS UPON AUSCULTATION. TRACE EDEMA NO BLE. #[address] WITH IVF INFUSING PER MAR ORDERS. ASSESSMENT COMPLETED. DISCUSSED POC, REINFORCEMENT NEEDED. CALL LIGHT WITHIN REACH.
--- NOTE | 2020-12-26 09:45 | NUR ---
FULL BED BATH GIVEN WITH THE ASSISTANCE OF Alli BERNARD CNA. BM NOTED. MAMADOU CARE AND OROURKE CARE PROVIDED. LEGS ELEVATED ON PILLOW. CALL LIGHT LEFT WITHIN REACH.
[2020-12-26 11:00] VITALS: BP 134/67
--- NOTE | 2020-12-26 11:41 | NUR ---
PT SITTING IN BED. NO DISTRESS NOTED. PT PULLED UP IN BED. AND SET UP FOR LUNCH. CALL LIGHT LEFT WITHIN REACH.
--- NOTE | 2020-12-26 13:16 | NUR ---
DAUGHTER AT BEDSIDE.
--- NOTE | 2020-12-26 13:57 | NUR ---
COUMADIN GIVEN. PT ABLE TO TAKE MEDICATION WITH NO COMPLICATIONS. CALL LIGHT LEFT WITHIN REACH.
--- NOTE | 2020-12-26 15:00 | NUR ---
PT BROUGHT BACK VIA STRETCHER ACCOMPANIED BY THIS KINDERGARTNER AND LOUIS LAGUNAS. PT TOLERATED WELL. CALL LIGHT LEFT WITHIN REACH.
[2020-12-26 15:20] VITALS: BP 124/65
--- NOTE | 2020-12-26 15:29 | NUR ---
Senait HUTSON PHYSICAL THERAPY AT BEDSIDE
--- NOTE | 2020-12-26 17:47 | NUR ---
ASSISTED PT TO SET UP FOR DINNER. PT DENIES ANY NEEDS AT THIS TIME. CALL LIGHT WITHIN REACH.
[2020-12-26 19:00] VITALS: BP 125/57
--- NOTE | 2020-12-26 19:00 | NUR ---
REPORT RECEIVED FROM Cindy YUSUF RN, CARE OF PT ASSUMED AT THIS TIME.
--- NOTE | 2020-12-26 19:45 | NUR ---
BED ALARM RINGING, PT SITTING UP AT SIDE OF BED. VERBALIZES SHE IS SCARED AND WANTS TO GO HOME. ALLOWED PT TIME TO EXPRESS FEARS AND CONCERNS AND VERBAL REASSURANCE PROVIDED FOR COMFORT. PT APPEARS CALMER. AGREES TO STAY IN BED. ASSISTED PT TO GET COMFORTABLE LAYING IN BED. PT DENIES NEEDS AT THIS TIME. CALL FERNANDEZ WITHIN REACH, AGREES TO CALL PRN. BED LOCKED IN LOW POSITION WITH BEDRAILS UP X2 AND BED ALARM ON.
--- NOTE | 2020-12-26 21:05 | NUR ---
PARTIAL LINEN CHANGE COMPLETED. PHYSICAL ASSESMENT COMPLETE. SCHEDULED MEDICATIONS ADMINSITERED, SEE E-MAR. PLAN OF CARE REVIEWED, PT VERBALIZES UNDERSTANDING AND DENIES QUESTIONS. DENIES NEEDS AT THIS TIME. BED LOCKED IN LOW POSITION WITH BEDRAILS UP X2 AND BED ALARM ON. CALL FERNANDEZ WITHIN REACH, AGREES TO CALL PRN.
[2020-12-27] VITALS (7 sets, daily range): BP systolic 112–132; BP diastolic 55–66
--- NOTE | 2020-12-27 | NUR ---
PT APPEARS TO BE SLEEPING COMFORTABLY, LAYING IN BED WITH EYES CLOSED, RESPIRATIONS REGULAR AND UNLABORED, NO APPARENT DISTRESS. CALL FERNANDEZ REMAINS WITHIN REACH.
--- NOTE | 2020-12-27 07:00 | NUR ---
SHIFT CHANGE REPORT, PT AWAKE AND ALERT RESTING IN BED, STATES SHE HAS LITTLE PAIN, TELE MONITOR IN PLACE, OROURKE CATHETER IN PLACE WITH CLEAR YELLOW URINE, CALL FERNANDEZ IN REACH AND BED LOCKED IN LOWEST POSITION.
[2020-12-27 08:49] LABS: HEMATOCRIT 33.5 % (37.0-47.0); HEMOGLOBIN 9.7 g/dl (12.0-16.0); IMMATURE GRANULOCYTES 0.3 % (0.0-5.0); MEAN CELL VOLUME 101.5 fL CALC (80.0-100.0); MEAN CORPUSCULAR HGB 29.4 pG CALC (26.0-32.0); NEUT# 4.67 thou/uL (2.00-7.15); RED BLOOD COUNT 3.3 mill/uL (4.20-5.60); RED CELL DISTRI WIDTH 13.4 % (11.5-15.5)
--- NOTE | 2020-12-27 08:59 | NUR ---
PT NOTE Patient was seated in chair as entered room, patient stated she needed to go to [place]. Transferred from chair to commode(MAX A), standing pivot transfer was executed. Sit>stand from commode to bed (MAX A), standing pivot transfer executed(MAX A), stand>sit(MAX A), sit>supine (MOD A). Patient was supine w/ 2 RN MEDICAL SURGICAL's cleaning and placing diaper on patient as exited room. [facility] 6 score of 8--long-term care Executed ankle pumps and lower extremity hamstring and gastrocnemius stretches prior to transfers.
[2020-12-27 10:52] LABS: CREATININE 3.9 mg/dL (0.5-1.0)
--- NOTE | 2020-12-27 11:06 | NUR ---
UNABLE TO REACH DAUGHTER LUCRECIA TO INFORM HER NO TO PICKUP PT AGAIN SHE HAS DECIDED TO GO TO REHAB, MESSAGE LEFT ON PHONE.
--- NOTE | 2020-12-27 12:30 | NUR ---
SLEEPING IN SUPINE POSITION, NO VISIBLE SIGN DISTRELL, CALL FERNANDEZ IN REACH.
--- NOTE | 2020-12-27 16:00 | NUR ---
RESTING IN BED, ALL NEEDS MET/ADDRESSED.
--- NOTE | 2020-12-27 19:00 | NUR ---
REPORT RECEIVED FROM Alexandre BECERRA RN, CARE OF PT ASSUMED AT THIS TIME.
--- NOTE | 2020-12-27 20:25 | NUR ---
FINGERSTICK GLUCOSE 55mg/dl REPORTED BY Alexandre SHERWOOD CNA. PT APPEARS SLIGHTLY DROWSY BUT OTHERWISE ASYMPTOMATIC. PT CONSUMED 1 WHOLE MILK, 1 APPLEJUICE, 1 NUTRIGRAIN BAR AND A CHOCOLATE PUDDING CUP. SCHEDULED MEDICATIONS ADMINISTERED. SEE E-MAR. PT APPEARS TO BE MORE AWAKE AND ALERT AFTER EATING. PHYSICAL ASSESMENT COMPLETED. PLAN OF CARE REVIEWED, PT VERBALIZES UNDERSTANDING AND DENIES QUESTIONS. PT DENIES NEEDS AT THIS TIME, CALL FERNANDEZ WITHIN REACH, AGREES TO CALL PRN.
--- NOTE | 2020-12-27 23:20 | NUR ---
F/U FINGERSTICK GLUCOSE 147MG/dl.
--- NOTE | 2020-12-28 00:38 | NUR ---
PT APPEARS TO BE SLEEPING COMFORTABLY, LAYING IN BED WITH EYES CLOSED, RESPIRATIONS REGULAR AND UNLABORED, NO APPARENT DISTRESS. CALL FERNANDEZ REMAINS WITHIN REACH.
[2020-12-28 04:00] VITALS: BP 127/79
[2020-12-28 05:23] LABS: HEMATOCRIT 31.5 % (37.0-47.0); HEMOGLOBIN 9.3 g/dl (12.0-16.0); MEAN CELL VOLUME 99.1 fL CALC (80.0-100.0); MEAN CORPUSCULAR HGB 29.2 pG CALC (26.0-32.0); MEAN CORPUSCULAR HGB CONC 29.5 g/dL CAL (32.0-36.0); RED BLOOD COUNT 3.18 mill/uL (4.20-5.60); RED CELL DISTRI WIDTH 13.2 % (11.5-15.5)
[2020-12-28 05:40] LABS: ALBUMIN 3.2 g/dL (3.2-5.0); CREATININE 3.6 mg/dL (0.5-1.0); POTASSIUM 4.9 mmol/l (3.5-5.1)
[2020-12-28 05:44] LABS: INTERNATIONAL NORMALIZED RATIO 2.5 RATIO (0.7-1.3); PROTHROMBIN TIME 25.7 SECONDS (9.0-12.5)
[2020-12-28 05:51] LABS: MAGNESIUM 1.8 mg/dL (1.6-2.3)
[2020-12-28 07:25] VITALS: BP 138/63
--- NOTE | 2020-12-28 07:36 | NUR ---
SHIFT CHANGE REPORT, PT SLEEPING BUT AROUDRD TO TACTILE STIMULI, NO C/O PAIN, REPOSITIONED IN BED AND LINNEN PARTIALLY CHANGED, IVF INFUSING, TELE MONITOR IN PLACE, OROURKE CATHETER IN PLACE WITH DARK JOSE URINE, BED LOCKED IN LOWEST POSITION AND CALL FERNANDEZ IN REACH.
--- NOTE | 2020-12-28 10:24 | NUR ---
DR ABRAMS ORDERED US KIDNEY TODAY, HE ALSO ORDERED ONE ON12/24/20, THERE WAS NO RESULT IN COMPUTER, CALLED US DEPARTMENT TO INQUIRE ABOUT FIRST TEST AND WAS TILD TEST WAS PERFORMED ON 12/26/20. MEDICAL TEAM HERE COULD NOT SEE RESULT SO US DEPT WAS NOTIFIED THAT RESULTS WERE NOT SHOWING UP IN COMPUTERS, THEY RESOLVED ISSUE. DR ABRAMS WAS NOTIFIED VIA TELEPHONE THAT RESULTS WERE NOW PUBLISHED IN COMPUTER SO HE ORDERED CANCELLATION FOR THE SECOND TEST HE ORDERED THIS AM. MEDICAL TEAM WAS NOTIFIED OF VIEWING AVAILABILITY NOW.
[2020-12-28 10:46] VITALS: BP 127/72
--- NOTE | 2020-12-28 12:15 | NUR ---
SITTING UP IN BED, ASSISTED WITH MEAL AND RELAXING AT THIS TIME.
[2020-12-28 15:40] VITALS: BP 128/67
--- NOTE | 2020-12-28 16:07 | NUR ---
PT NOTE Tool Grinder Brook was present. Patient was supine as entered room, patient agreed to participate in lower extremity exercises, was too tired to sit or stand. Patient executed heel slides, ankle pumps and hip abduction passively to begin. With encouragement patient executed all exercises activiely w/ (MIN A). Light lower extremity stretching to hamstings and gastrocnemius x 3 x 15 second holds. patient was supine as exited room w/ tray table and call murillo by patient side. [facility] 6 score of 8--fci facility
--- NOTE | 2020-12-28 16:31 | NUR ---
RESTING CONFORTABLY IN BED AT THIS TIME, DAUGHTER VISITING, ALL NEEDS MET.
[2020-12-28 19:00] VITALS: BP 138/50
[2020-12-29 00:30] VITALS: BP 120/74
--- NOTE | 2020-12-29 02:46 | NUR ---
LATE ENTRY FOR 12/28/20 @ 1999 PT NOTED TO HAVE HYPOGLYCEMIC EVENT, BS 32. PT WAS LETHARGIC AND MENTALLY ALTERED. PT WAS HAVING DIFFICULTY SWALLOWING OFFERED ORANGE JUICE. ALGEBRAIST AND SUPERVISING RN REMOVED DEXTROSE 50% IV PUSH FROM [facility]. GLUCOSE LEVEL WAS CHECKED BY LAB JUST PRIOR TO DEXTROSE ADMINSTRATION, GLUCOSE 32. RN AND SUPERVISING RN ADMINSTERED DEXTROSE VIA IV PUSH. LABS TO BE REDRAWN IN AN HOUR FROM DEXTROSE ADMINSTRATION. PHYSICIAN NOTIFIED OF SITUATION AND ADVISED HE WOULD REVIEW HER MEDICATION RECORD AND ADJUST ACCORDINGLY. DAILY LEVEMIR DECREASED. PT HAS BEEN REFUSING MEALS THROUGHOUT THE DAY. FOLLOWING DEXTROSE PUSH IV SITE TO R HAND BEGAN LEAKING. NEW SITE PLACED TO RAC #20 X 1 ATTEMPT. PT TOLERATED FINE. FOLLOWING DEXTROSE ADMINSTRATION PT BECAME MORE ALERT AND LESS ALTERED, RECHECKED BS VIA ACCU CHECK MACCHINE AROUND 2030, 129. LAB REDREW GLCOSE LEVEL, 91. WILL MONITOR.
--- NOTE | 2020-12-29 03:00 | NUR ---
LATE ENTRY FOR 12/29/20 @ 0130 RECHECKED PT BS VIA ACCUCHECK AND NOTED BS WAS 73, TRENDING DOWN AGAIN. SATIN FINISHER GAVE PT SOME ORANGE JUICE AND A NUTRIGRAIN BAR TO STABILIZE HER SUGAR, PT IS ABLE TO DRINK AND EAT WITH SAFE SWALLOWING AT THIS TIME. WILL RECHECK BS IN ONE HOUR.
--- NOTE | 2020-12-29 03:03 | NUR ---
BLOOD SUGAR RECHECK AT APPROXIMATLY 0230, 193. PT MUCH MORE ALERT AND COMMUNICATIVE. NO COMPLAINTS VOICED AT THIS TIME WILL MONITOR.
--- NOTE | 2020-12-29 04:42 | NUR ---
PT RESTING QUIETLY AT THIS TIME. NO COMPLAINTS VOICED. OROURKE CONTINUES DRAINING TO GRAVITY. IV TO RAC CONTINUES TO FLUSH EASILY, NS @ 30ML/HR. WILL CONTINUE TO MONITOR.
[2020-12-29 04:45] LABS: HEMATOCRIT 31.3 % (37.0-47.0); HEMOGLOBIN 9.4 g/dl (12.0-16.0); MEAN CELL VOLUME 97.8 fL CALC (80.0-100.0); MEAN CORPUSCULAR HGB 29.4 pG CALC (26.0-32.0); RED BLOOD COUNT 3.2 mill/uL (4.20-5.60); RED CELL DISTRI WIDTH 13.6 % (11.5-15.5)
[2020-12-29 04:54] VITALS: BP 144/75
[2020-12-29 05:04] LABS: INTERNATIONAL NORMALIZED RATIO 3.3 RATIO (0.7-1.3); PROTHROMBIN TIME 33.6 SECONDS (9.0-12.5)
[2020-12-29 05:08] LABS: CREATININE 3.3 mg/dL (0.5-1.0); MAGNESIUM 1.7 mg/dL (1.6-2.3); POTASSIUM 4.8 mmol/l (3.5-5.1)
--- NOTE | 2020-12-29 07:30 | NUR ---
REPORT RECEIVED FROM TIM. PT SITTING UP IN BEDSIDE CHAIR; ALERT WITH CONFUSION; SINHALA SPEAKING ONLY. C/O BACK PAIN. RESPIRATIONS EVEN AND UNLABORED ON ROOM AIR; C/O MILD SOB; LUNGS ARE CLEAR. BLE ARE DISCOLORED WITH WEAK PEDAL PULSES. OROURKE CATHETER DRAINING CLOUDY, YELLOW URINE IN ADEQUATE AMOUNTS. IV FLUIDS INFUSING AT 30ML/HR INTO 20G RAC; IV SITE APPEARS HEALTHY. SAFETY MEASURES IN PLACE. CALL LIGHT WITHIN REACH.
[2020-12-29 08:00] VITALS: BP 121/38
--- NOTE | 2020-12-29 09:05 | NUR ---
DR. AVILEZ AT BEDSIDE. PT NOW RESTING IN BED ON LEFT SIDE PER REQUEST AND PT ATTEMPTING TO GET OUT OF BEDSIDE CHAIR UNASSISTED; ENCOURAGED TO STAY UP IN CHAIR MUCH TOLERATED.
--- NOTE | 2020-12-29 09:20 | NUR ---
RADIOLOGY AT BEDSIDE FOR CHEST XRAY. TYLENOL GIVEN FOR BACK PAIN AND PT REPOSITIONED ONTO RIGHT SIDE.
--- NOTE | 2020-12-29 10:17 | NUR ---
NEW ORDERS RECEIVED DUE TO CHEST XRAY RESULTS. IV FLUIDS DISCONTINUED AND IV TO RAC NOW SALINE LOCKED.
[2020-12-29 11:00] VITALS: BP 118/55
--- NOTE | 2020-12-29 13:45 | NUR ---
DAUGHTER AT BEDSIDE. INCONTINENT OF STOOL; HYGEINE PROVIDED. LORTAB GIVEN FOR PAIN ALONG WITH SCHEDULED COUMADIN.
[2020-12-29 15:04] VITALS: BP 124/59
--- NOTE | 2020-12-29 15:57 | NUR ---
PHYSICAL THERAPY AT BEDSIDE; ASSISTED UP INTO CHAIR.
--- NOTE | 2020-12-29 17:38 | NUR ---
PT SIDE LYING IN BED WHEN THERAPIST ARRIVED. DAUGHTER VISITING. PT REQUIRED MAX A X 2 TO GET FROM SIDE LYING TO SIT. FOR INCREASED BLE STRENGTH AND TRANSFER TRAINING PT COMPLETED 3 SIT TO STAND TRANSFERS WITH MOD A X 1. SHE THEN TRANSFERRED TO RECLINER CHAIR (APPROX 3FT AWAY) WITH FWW AND MIN A X 2. WAS DEPENDENT WITH SCOOTING BACK IN RECLINER. INSTRUCTED PT TO REMAIN UP IN CHAIR FOR >30 MINUTES. AM PAC SCORE 10 DISCHARGE RECOMMENDATION INPATIENT REHAB
[2020-12-29 19:15] VITALS: BP 101/60
--- NOTE | 2020-12-29 23:03 | NUR ---
PT RESTING IN BED WITH EYES CLOSED. C/O PAIN IN BILATERAL HIPS, LORTAB ADMINSTERED. PT B/P LOW JUST PRIOR TO MED PASS, 101/60. COREG HELD D/T LOW B/P. HS BLOOD SUGAR 210, COVERED WITH 3 UNITS. REPORTS SOME SOB TODAY BUT IS BREATHING COMFORTABLY AT THIS TIME. FOLE CATHETER CONTINUES TO DRAIN TO GRAVITY, JOSE COLORED CLEAR URINE. NO SEDIMENT NOTED. #20 RAC CONTIUES, FLUSHES EASILY. PT REMIANS ON TELE RUNNING SINUS RHYTMN. WILL CONTINUE TO MONITOR. SAFETY PRECAUTIONS REMAIN IN PLACE D/T PT BEING A FALL RISK.
--- NOTE | 2020-12-29 23:59 | NUR ---
PT RESTING COMFORTABLY IN BED, NO CONCERNS AT THIS TIME. BREATHING EVEN AND UNLABORED. PAIN MEDICATION WAS EFFECTIVE.
[2020-12-30 00:15] VITALS: BP 95/51
--- NOTE | 2020-12-30 01:33 | NUR ---
B/P CHECKED AND RESULT OF WAS NOTED. AT THIS TIME PT WILL BE MONITORED. PT PULSE WNL, PT IS ASYMPTOMATIC FOR HYPOTENSION. PT DENIES DIZZINESS, HEADACHE, BLURRED VISION, AND NAUSEA. SAFETY MEASURES IN PLACE. PT RESTING WITH HER EYES CLOSED IN THE BED AT THIS TIME.
[2020-12-30 04:09] VITALS: BP 127/71
--- NOTE | 2020-12-30 04:16 | NUR ---
NURSE RECEIVED CALL FROM ER INDICATING THAT PT HAD A SEVEN BEAT RUN OF V-TACH. PT IS AWAKE AND ALERT AT THIS TIME, ANSWERING QUESTIONS APPROPRIATLY, ASYMPTOMATIC FOR V-TACH. 127/71, 71, 95%. NO S/S OF DISTRESS. BREATHING EVEN AND UNLABORED. REPORTED INFORMATION TO RN ON SHIFT. WILL MONITOR.
[2020-12-30 05:14] LABS: HEMATOCRIT 32.1 % (37.0-47.0); HEMOGLOBIN 9.5 g/dl (12.0-16.0); MEAN CELL VOLUME 98.8 fL CALC (80.0-100.0); MEAN CORPUSCULAR HGB 29.2 pG CALC (26.0-32.0); MEAN CORPUSCULAR HGB CONC 29.6 g/dL CAL (32.0-36.0); RED BLOOD COUNT 3.25 mill/uL (4.20-5.60); RED CELL DISTRI WIDTH 13.8 % (11.5-15.5)
[2020-12-30 05:43] LABS: ALBUMIN 3.3 g/dL (3.2-5.0); CREATININE 3.2 mg/dL (0.5-1.0); POTASSIUM 4.9 mmol/l (3.5-5.1)
[2020-12-30 07:51] VITALS: BP 117/56
--- NOTE | 2020-12-30 07:57 | NUR ---
PATIENT LAYING IN BED AT THIS TIME. PATIENT DENIES ANY PAIN. ROLL CONTOUR GRINDER DONE AT THIS TIME SEE INTERVENTIONS. PATIENT NOTED TO HAVE SKIN TEAR ON LEFT LOWER LEG AND DRESSING IS INTACT AT THIS TIME. PATIENT OROURKE IS PATENT AND DRAINING YELLOW URINE AT THIS TIME. SIDERAILS ARE UP CALL LIGHT AND PERSONAL ITEMTS WITHIN REACH. NURSE AIDE IS IN ROOM TO GET PATIENT UP AT THIS TIME.
[2020-12-30 11:09] VITALS: BP 140/71
--- NOTE | 2020-12-30 12:00 | NUR ---
PATIENT RESTING IN BED AT THIS TIME EATING LUNCH. PATIENT DENES ANY PAIN ON NEEDS. SIDERAILS ARE UP X 2 CALL LIGHT AND PERSONAL ITEMS WITHIN REACH.
--- NOTE | 2020-12-30 12:15 | NUR ---
PATIENT D/C AT THIS TIME TELE REMOVED AND ED NOTIFIED. IV REMOVED AND CANULA INTACT. PATIENT VERBALIZES UNDERSTANDING OF D/C INSTRUCTIONS AT THIS TIME.
[2020-12-30 14:57] VITALS: BP 117/66
--- NOTE | 2020-12-30 15:26 | NUR ---
PATIENT RESTING IN BED AT THIS TIME DENIES ANY NEEDS CURRENTLY OROURKE CONTINUES TO DRAIN YELLOW /JOSE URINE AT THIS TIME. SIDERAILS ARE UP CALL LIGHT IS WITHIN REACH.
--- NOTE | 2020-12-30 18:33 | NUR ---
PATIENT COMPLAINING OF PAIN IN LOWER BACK. PATIENT GIVEN LORITAB 5/325MG 1 TAB FOR PAIN OF "5" OUT OF PAIN SCALE OF 0-10
[2020-12-30 19:16] VITALS: BP 103/56
--- NOTE | 2020-12-30 20:35 | NUR ---
PT POSITIONED IN BED FOR COMFORT AND TURNED FROM RIGHT SIDE TO LEFT. BLANCHABLE REDNESS NOTED TO BUTTOCKS, BARRIER OINTMENT APPLIED. PT SAT UP FOR MEDICATION ADMINISTRATION. PT TOLERATES PILLS WHOLE WITH SIPS OF ENSURE CLEAR. FINGERSTICK GLUCOSE 101mg/dl. PT OFFERED PUDDING, PT DECLINES, PT DECLINES OFFERS FOR ANY SNACK OPTIONS OFFERED. PT REPORTS SHE IS "FEELING BETTER". PHYSICAL ASSESMENT COMPLETED, SEE SHIFT ASSESSMENT. EDUCATION ON PLAN OF CARE PROVIDED. PT VERBALIZES UNDERSTANDING/DENIES QUESTIONS. PT IS ABLE TO MAKE NEEDS KNOWN, DENIES ANY FURTHER NEEDS AT THIS TIME. CALL FERNANDEZ WITHIN REACH, AGREES TO CALL PRN. BED LOCKED IN LOW POSITION WITH BEDRAILS UP X2.
[2020-12-31 00:19] VITALS: BP 86/53
--- NOTE | 2020-12-31 00:35 | NUR ---
PT APPEARS TO BE SLEEPING COMFORTABLY, LAYING IN BED WITH EYES CLOSED, RESPIRATIONS REGULAR AND UNLABORED, NO APPARENT DISTRESS. CALL FERNANDEZ REMAINS WITHIN REACH. BED REMAINS LOCKED IN LOW POSITION WITH BEDRAILS UP X2.
[2020-12-31 04:00] VITALS: BP 98/59
--- NOTE | 2020-12-31 05:15 | NUR ---
PT TURNED AND REPOSITIONED IN BED FOR COMFORT PER HER REQUEST. DENIES FURTHER NEEDS AT THIS TIME. CALL FERNANDEZ WITHIN REACH, AGREES TO CALL PRN.
[2020-12-31 05:28] LABS: HEMOGLOBIN 8.9 g/dl (12.0-16.0); MEAN CELL VOLUME 99.3 fL CALC (80.0-100.0); MEAN CORPUSCULAR HGB 29.5 pG CALC (26.0-32.0); MEAN CORPUSCULAR HGB CONC 29.7 g/dL CAL (32.0-36.0); RED BLOOD COUNT 3.02 mill/uL (4.20-5.60); RED CELL DISTRI WIDTH 13.8 % (11.5-15.5)
[2020-12-31 05:44] LABS: INTERNATIONAL NORMALIZED RATIO 3.6 RATIO (0.7-1.3)
[2020-12-31 05:53] LABS: CREATININE 2.9 mg/dL (0.5-1.0); MAGNESIUM 1.4 mg/dL (1.6-2.3); POTASSIUM 4.6 mmol/l (3.5-5.1)
[2020-12-31 07:05] VITALS: BP 129/68
--- NOTE | 2020-12-31 07:05 | NUR ---
PATIENT AWAKE IN BED SIDERAILS ARE UP CALL LIGHT WITHIN REACH. PATIENT DENIES ANY PAIN AT THIS TIME. TELE MONITOR IN PLACE AND BEING MONITORED BY ED. PATIENT OROURKE IS PATENT AND DRAINING JOSE URINE. PATIENTS BANDAIDE REPLACE ON LEFT ARM SKIN TEAR AT THIS TIME. ENGINEERING CLERK DONE SEE INTERVENTIONS.
--- NOTE | 2020-12-31 07:45 | NUR ---
PATIENT WAS UP IN CHAIR FOR BREAKFAST BUT AT THIS TIME PATIENT WAS FOUND TO BE BACK IN BED. PATIENT RETURNED TO BED WITHOUT ASSISTANCE OF STAFF. PATIENT WAS EDUCATED ON SAFETY AND THE IMPORTANCE OF CALLING FOR ASSISTANCE PRIOR TO GETTING UP. PATIENT BED ALARM IS ACTIVATED AT THIS TIME.
--- NOTE | 2020-12-31 11:27 | NUR ---
PATIENT RESTING IN BED AT THIS TIME EATING LUNCH. PATIENT STATES HER PAIN IS "0". SIDERAILS ARE UP CALL LIGHT AND PERSONAL ITEMS ARE WITHIN REACH.
--- NOTE | 2020-12-31 13:07 | NUR ---
FAMILY IN TO SEE PATIENT AT THIS TIME.
--- NOTE | 2020-12-31 15:51 | NUR ---
PATIENT IN BED AT THIS TIME SIDERAILS ARE UP CALL LIGHT AND PERSONAL ITEMS WITHIN REACH. PATIENT DENIES ANY NEEDS OROURKE REMAINS PATENT AND DRAINING AND TELE MONITOR IN PLACE AND BEING MONITORED BY ED.
[2020-12-31 16:33] VITALS: BP 142/79
--- NOTE | 2020-12-31 17:14 | NUR ---
PATIENT C/0 PAIN IN LOWER BACK AT THIS TIME MEDICATED WITH 5/325MG 1 TAB ORALLY OF HYDROCODONE AT THIS TIME. PATIENT SIDERAILS ARE UP X2 CALL LIGHT IS WITHIN REACH.
--- NOTE | 2020-12-31 19:00 | NUR ---
REPORT RECEIVED FROM Cassidy EMERY RN, CARE OF PT ASSUMED AT THIS TIME.
[2020-12-31 19:24] VITALS: BP 119/62
--- NOTE | 2020-12-31 20:35 | NUR ---
PT LAYING IN BED WATCHING TV. AWAKE AND ALERT. RESPIRATIONS REGULAR AND UNLABORED. APPEARS COMFORTABLE AND IN NO APPARENT DISTRESS. PT STATES SHE IS DOING BETTER TODAY. PHYSICAL ASSESMENT COMPLETED, SEE SHIFT ASSESMENT. R-AC #20G IV IS SALINE LOCKED AND PATENT. OROURKE SECURED TO LEG VIA STRAP WITH TUBING UNKINKE AND UNOBSTRUCTED. DRAINING CONCENTRATED YELLOW URINE TO GRAVITY, URINE APPEARS SLIGHTLY CLOUDY IN BAG/TUBING. BANDAID TO LEFT UNDERARM AND RIGHT CLEARY CLEAN, DRY, INTACT, AND DATED 12/31/20. FINGERSTICK GLUCOSE 136mg/Dl. DECLINES OFFER FOR HS SNACK. DOES DRINK OJ CUP. SCHEDULED MEDICATIONS ADMINISTERED, SEE E-MAR. PLAN OF CARE REVIEWED WITH PT, PT DENIES QUESTION AND VERBALIZES UNDERSTANDING. PT ASSISTED TO TURN ONTO RIGHT SIDE PER HER REQUEST, DENIES FURTHER NEEDS AT THIS TIME. CALL FERNANDEZ WITHIN REACH, AGREES TO CALL PRN. BED LOCKED IN LOW POSITION WITH BEDRAILS UPX2 AND BED ALARM ON.
[2020-12-31 23:39] VITALS: BP 107/58
[2021-01-01 04:02] VITALS: BP 127/73
[2021-01-01 06:12] LABS: HEMATOCRIT 31.4 % (37.0-47.0); HEMOGLOBIN 9.4 g/dl (12.0-16.0); MEAN CELL VOLUME 98.7 fL CALC (80.0-100.0); MEAN CORPUSCULAR HGB 29.6 pG CALC (26.0-32.0); MEAN CORPUSCULAR HGB CONC 29.9 g/dL CAL (32.0-36.0); RED BLOOD COUNT 3.18 mill/uL (4.20-5.60); RED CELL DISTRI WIDTH 13.8 % (11.5-15.5)
[2021-01-01 06:21] LABS: INTERNATIONAL NORMALIZED RATIO 3.1 RATIO (0.7-1.3); PROTHROMBIN TIME 31.5 SECONDS (9.0-12.5)
[2021-01-01 06:28] LABS: CREATININE 2.7 mg/dL (0.5-1.0); POTASSIUM 4.4 mmol/l (3.5-5.1)
[2021-01-01 07:05] VITALS: BP 121/74
--- NOTE | 2021-01-01 07:05 | NUR ---
PATIENT RESTING IN BED AT THIS TIME ALERT AND ORIENTED. RN ASSESSEMENT DONE SEE INTERVENTIONS. PATIENT DENIES ANY PAIN CURRENTLY AND RATES HER PAIN A "0" 0N THE PAIN SCALE OF 0-10. OROURKE PATENT AND DRAINING YELLOW CLOUDY URINE AT THIS TIME. SKIN TEAR DRESSING ON LEFT LOWER LEG DRY AND INTACT. SIDERAILS ARE UP X 2 CALL LIGHT AND PERSONAL ITEMS WITHIN REACH.
[2021-01-01 10:43] VITALS: BP 113/39
--- NOTE | 2021-01-01 11:10 | NUR ---
PER DR. SENA OROURKE REMOVED AT THIS TIME. 100 MLS REMOVED FROM OROURKE AT TIME OF D/C. PATIENT ADVISED TO USE CALL LIGHT TO CALL FOR ASSISTANCE WHEN SHE FEELS THE URGECY TO URINATE. PATIENT VERBALIZED UNDERSTANDING AT THIS TIME. PATIENT WAS ASSITED TO CHAIR AT THIS TIME WELL. CALL LIGHT AND PERSONAL ITEMS WITHIN REACH. PATIENT ADVISED THAT SHE WILL BE D/C TODAY TO REHAB. DAUGHTER MARIAELENA NOTIFIED BY DR. HAYES AND THIS NURSE.
[2021-01-01] MEDS ORDERED: HYDROCODONE/ACE1 T12 PO (11:36)
[2021-01-01] MEDS ORDERED: CLONAZEPAM1 MG PO (11:36)
--- NOTE | 2021-01-01 12:49 | NUR ---
PATIENT UP IN CHAIR EATING LUNCH. PATIENT IS D/C AT THIS TIME IV SITE REMOVED. PATIENT UP TO BEDSIDE COMMODE AND DID URINATE AT THIS TIME. PATIENT DAUGHTER IS AT BED SIDE. IV REMOVED CANULA TIP INTACT.
--- NOTE | 2021-01-01 15:28 | NUR ---
Discharge instructions given. Patient verbalizes understanding of same. Discharged in stable condition via Wheelchair to Home with *Other. All belongings sent with pt.
== END 2021-01-01 15:25 | DRG 682 ==
LOC: ED 15:46 → ED-I 19:16 → ED 19:22 → MS2 19:23
PROVIDERS: Emergency Medicine; Internal Medicine; Internal Medicine Nephrology; Nurse Practitioner; ADMIT Internal Medicine; ATTEND Internal Medicine
PROC: 0T9B70Z Drainage of Bladder with Drainage Device, Via Natural or Artificial Opening (ICD-10-PCS; principal; 2020-12-23)
DX: N17.0 Acute kidney failure with tubular necrosis (principal); I50.43 Acute on chronic combined systolic (congestive) and diastolic (congestive) heart failure; I48.20 Chronic atrial fibrillation, unspecified; I13.0 Hypertensive heart and chronic kidney disease with heart failure and stage 1 through stage 4 chronic kidney disease, or unspecified chronic kidney disease; E87.1 Hypo-osmolality and hyponatremia; E87.2 Acidosis; G93.40 Encephalopathy, unspecified; E11.22 Type 2 diabetes mellitus with diabetic chronic kidney disease; N18.30 Chronic kidney disease, stage 3 unspecified; I95.9 Hypotension, unspecified; E86.0 Dehydration; E86.9 Volume depletion, unspecified; I25.10 Atherosclerotic heart disease of native coronary artery without angina pectoris; R09.02 Hypoxemia; J44.9 Chronic obstructive pulmonary disease, unspecified; D63.1 Anemia in chronic kidney disease; E78.5 Hyperlipidemia, unspecified; F41.9 Anxiety disorder, unspecified; F32.9 Major depressive disorder, single episode, unspecified; G40.909 Epilepsy, unspecified, not intractable, without status epilepticus; G89.4 Chronic pain syndrome; F51.9 Sleep disorder not due to a substance or known physiological condition, unspecified; G47.33 Obstructive sleep apnea (adult) (pediatric); I49.5 Sick sinus syndrome; G25.81 Restless legs syndrome; Z95.1 Presence of aortocoronary bypass graft; Z95.0 Presence of cardiac pacemaker; Z79.4 Long term (current) use of insulin; Z79.01 Long term (current) use of anticoagulants; Z20.822 Contact with and (suspected) exposure to COVID-19
CPT/HCPCS: G0378; J1756; J3475

== ENCOUNTER 2021-07-29 14:10 | Emergency (ER) | payer MEDICARE, MEDICAID ==
[~2021-07-29] VITALS: Ht 165.1 cm; Wt 86.6 kg
[~2021-07-29 14:10] MED LIST changes: +CRESTOR5 MG PO; +HYDROCODONE/ACE1 T12 PO; +REPAGLINIDE2 MG PO; +REQUIP XL6 MG PO; +VITAMIN D31000 UNI1 PO; +WARFARIN SODIU2.5 M1 PO; +WARFARIN3 MG PO
[2021-07-29 14:51] LABS: HEMATOCRIT 37.1 % (37.0-47.0); HEMOGLOBIN 11.4 g/dl (12.0-16.0); IMMATURE GRANULOCYTES 0.2 % (0.0-5.0); MEAN CELL VOLUME 98.9 fL CALC (80.0-100.0); MEAN CORPUSCULAR HGB 30.4 pG CALC (26.0-32.0); MEAN CORPUSCULAR HGB CONC 30.7 g/dL CAL (32.0-36.0); NEUT# 7.19 thou/uL (2.00-7.15); RED BLOOD COUNT 3.75 mill/uL (4.20-5.60); RED CELL DISTRI WIDTH 14.4 % (11.5-15.5)
[2021-07-29 15:01] LABS: ALBUMIN 4.1 g/dL (3.2-5.0); POTASSIUM 4.2 mmol/l (3.5-5.1); TOTAL PROTEIN 7.3 g/dL (6.3-8.2)
[2021-07-29 15:05] LABS: BILIRUBIN, TOTAL 1.7 mg/dL (0.0-1.4); CREATININE 3.4 mg/dL (0.5-1.0)
[2021-07-29 15:32] LABS: INTERNATIONAL NORMALIZED RATIO 2.4 RATIO (0.7-1.3); PROTHROMBIN TIME 23.8 SECONDS (9.0-12.5)
[2021-07-29 16:17] LABS: URINE BLOOD DIPSTICK NEGATIVE (NEGATIVE); URINE COLOR YELLOW; URINE GLUCOSE - DIPSTICK NEGATIVE (NEGATIVE); URINE KETONE NEGATIVE (NEGATIVE); URINE LEUK ESTERASE NEGATIVE (NEGATIVE); URINE PROTEIN - DIPSTICK NEGATIVE (NEG-TRACE); URINE SPECIFIC GRAVITY >=1.030; URINE UROBILINOGEN - DIPSTICK 0.2 E.U./dL (0.2)
[2021-07-29 16:19] LABS: URINE BILIRUBIN - DIPSTICK NEGATIVE (NEGATIVE); URINE NITRITE - DIPSTICK NEGATIVE (Negative)
[2021-07-29 17:50] VITALS: BP 110/72
--- NOTE | 2021-07-29 18:05 | NUR ---
aircraft pneudraulics repairer called to er for intubation. upon arrival, aircraft pneudraulics repairer set up ventilator, and assisted c intubation. 1x attempt, non traumatic intubation, and placed pt on conventional mechanical ventilator c paramters as ./. pt armaan well. air transport on the way. ett patent and stable.
== END 2021-07-29 18:05 | disposition short-term general hospital (02) ==
LOC: ED 14:10
PROVIDERS: Family Medicine
PROC: 05H533Z Insertion of Infusion Device into Right Subclavian Vein, Percutaneous Approach (ICD-10-PCS; principal; 2021-07-29)
PROC: 06HY33Z Insertion of Infusion Device into Lower Vein, Percutaneous Approach (ICD-10-PCS; 2021-07-29)
PROC: 0BH17EZ Insertion of Endotracheal Airway into Trachea, Via Natural or Artificial Opening (ICD-10-PCS; 2021-07-29)
DX: A41.9 Sepsis, unspecified organism (principal); R65.21 Severe sepsis with septic shock; I21.4 Non-ST elevation (NSTEMI) myocardial infarction; N17.9 Acute kidney failure, unspecified; J18.9 Pneumonia, unspecified organism; I13.2 Hypertensive heart and chronic kidney disease with heart failure and with stage 5 chronic kidney disease, or end stage renal disease; E11.22 Type 2 diabetes mellitus with diabetic chronic kidney disease; I50.9 Heart failure, unspecified; N18.6 End stage renal disease; K21.9 Gastro-esophageal reflux disease without esophagitis; E78.5 Hyperlipidemia, unspecified; I48.91 Unspecified atrial fibrillation; J45.909 Unspecified asthma, uncomplicated; F41.9 Anxiety disorder, unspecified; G25.81 Restless legs syndrome; T82.524A Displacement of infusion catheter, initial encounter; Y83.8 Other surgical procedures as the cause of abnormal reaction of the patient, or of later complication, without mention of misadventure at the time of the procedure; Z95.1 Presence of aortocoronary bypass graft; Z95.0 Presence of cardiac pacemaker; Z99.2 Dependence on renal dialysis; Z79.4 Long term (current) use of insulin; Z20.822 Contact with and (suspected) exposure to COVID-19; Z88.0 Allergy status to penicillin
CPT/HCPCS: J1644